=== PATIENT | female | born 1975 | race Caucasian/White ===

== ENCOUNTER 2016-11-23 06:41 | Emergency (ER) | payer SELFPAY ==
[~2016-11-23] VITALS: Ht 165.1 cm; Wt 54.6 kg
[2016-11-23 06:43] VITALS: Ht 165.1 cm; Wt 54.6 kg
--- NOTE | 2016-11-23 06:43 | NUR ---
EMS HERE. DR CALLAWAY ASSESSED PT PRIOR TO REMOVING PT FROM EMS CART. PT IS UNRESPONSIVE.
--- NOTE | 2016-11-23 06:45 | NUR ---
Shannon pinon in [facility] - 11/23/16 at [address] PER CART
--- NOTE | 2016-11-23 06:45 | NUR ---
STROKE ACTIVATION INITIATED.
--- NOTE | 2016-11-23 06:45 | NUR ---
TO CT PER EMS CART
[2016-11-23] MEDS ORDERED: NORMAL SALINE 1,000 ML IV ONE ×2 (06:46→08:30)
--- OUTSIDE RECORDS SUMMARY | 2016-11-23 06:47 | XMS REPORT ---
Author Author Gino Godfrey [facility] eClinicalWorks Address Unknown Phone Unavailable Care Team Providers Care Resolution Expert Name Role Phone Gino Godfrey CP Unavailable Allergies No Known Allergies Problems Problem Type Condition Code Onset Dates Condition Status Problem Panic attack F41.0 Active Problem Unspecified asthma, uncomplicated J45.909 Active Problem Acute cystitis without hematuria N30.00 Active Problem Chronic low back pain M54.5 Active Problem Cystitis with hematuria N30.91 Active Problem Urinary retention R33.9 Active Problem Depression, uncontrolled F32.9 Active Problem Hypothyroidism, unspecified E03.9 Active Problem 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
--- OUTSIDE RECORDS SUMMARY | 2016-11-23 06:47 | XMS REPORT ---
Author Author Gino Godfrey [facility] eClinicalWorks Address Unknown Phone Unavailable Care Team Providers Care Field Installer Name Role Phone Gino Godfrey Unavailable Allergies, Adverse Reactions, Alerts Substance Reaction Event Type Morphine Sulfate Info Not Available Drug Allergy Medrol (Edgard) Info Not Available Drug Allergy Bactrim Info Not Available Drug Allergy Aleve Info Not Available Drug Allergy Problems Problem Type Condition Code Onset Dates Condition Status Assessment Panic attack F41.0 Active Problem Unspecified asthma, uncomplicated J45.909 Active Assessment Chronic low back pain M54.5 Active Problem Chronic low back pain M54.5 Active Problem Hypothyroidism, unspecified E03.9 Active Problem Acute cystitis without hematuria N30.00 Active Problem Depression, uncontrolled F32.9 Active Problem Panic attack F41.0 Active Problem Chronic radicular lumbar pain M54.16 Active Problem Urinary retention R33.9 Active Medications Medication Code System Code Instructions Start Date End Date Status Dosage Fentanyl [facility] [place] [address]-07 100 MCG/HR Transdermal every 72 hrs December 01, 2012 1 patch to skin Levothyroxine Sodium [facility] [place] [id number] 75 TAKE ONE TABLET BY MOUTH DAILY. NEED LAB. Gabapentin [facility] [place] 29804524181 400 TAKE ONE CAPSULE BY MOUTH THREE TIMES A DAY Diazepam [facility] [place] [address]-69 10 MG Orally TID Sep 29, 2014 1 tablet as needed Dexilant [facility] [place] [address]-84 60 MG Orally Once a day November 08, 2015 1 capsule Phenergan [facility] [place] [address]-11 50 MG/ML Injection now with 50mg Demerol November 24, 2015 0.5 ml as needed Oxycodone HCl [facility] [place] [address]-33 10 MG Orally 3 times a day, with occasional 1 tablet daily, max of 4/day. 90 tabs to last 28 days December 01, 2012 1 tablet Xikogituhi-NACH-Xflvqgit [facility] [place] 39792042916 50-325-40 Orally QD, as needed 1 tablet Cymbalta [facility] [place] [address]-79 60 MG Orally Twice a day 1 capsule ProAir RespiClick [facility] [place] [address]-54 108 (90 Base) MCG/ACT Inhalation every 4 hrs December 29, 2015 1 puff as needed Procedures Procedure Coding System Code Date OFFICE VISITEST PT CPT-4 85211 Apr 08, 2016 Vital Signs Date/Time: Apr 08, 2016 Blood Pressure Systolic 135 mm Hg Height 5 ft 6 in in Weight 117.2 lbs Oximetry 99 % Cardiac Monitoring Heart Rate 118 /min Temperature 98.2 F Blood Pressure Diastolic 90 mm Hg BMI 18.91 Index Results No Known Results Summary Purpose eClinicalWorks Submission
--- OUTSIDE RECORDS SUMMARY | 2016-11-23 06:47 | XMS REPORT ---
Author Author Gino Godfrey [facility] eClinicalWorks Address Unknown Phone Unavailable Care Team Providers Care Die Mechanic Name Role Phone Gino Godfrey CP Unavailable Allergies No Known Allergies Problems Problem Type Condition Code Onset Dates Condition Status Problem Unspecified asthma, uncomplicated J45.909 Active Problem Depression, uncontrolled F32.9 Active Problem Panic attack F41.0 Active Problem Cystitis with hematuria N30.91 Active Problem Acute cystitis without hematuria N30.00 Active Problem Diverticulitis of large intestine without perforation or abscess with bleeding K57.33 Active Problem Chronic radicular lumbar pain M54.16 Active Problem Urinary retention R33.9 Active Problem Chronic low back pain M54.5 Active Problem Hypothyroidism, unspecified E03.9 Active Medications No Known Medications Results No Known Results Summary Purpose eClinicalWorks Submission
--- OUTSIDE RECORDS SUMMARY | 2016-11-23 06:47 | XMS REPORT ---
Author Author Gino Godfrey [facility] eClinicalWorks Address Unknown Phone Unavailable Care Team Providers Care Manager Property Name Role Phone Gino Godfrey CP Unavailable Allergies No Known Allergies Problems Problem Type Condition ICD-9 Code Onset Dates Condition Status Problem Depression 311 Active Problem Urinary retention 788.20 Active Problem Panic attacks 300.01 Active Problem Chronic lumbar radiculopathy 724.4 Active Problem Low back pain 724.2 Active Problem Hypothyroidism 244.9 Active Medications No Known Medications Results No Known Results Summary Purpose eClinicalWorks Submission
--- OUTSIDE RECORDS SUMMARY | 2016-11-23 06:47 | XMS REPORT ---
Author Author Gino Godfrey [facility] eClinicalWorks Address Unknown Phone Unavailable Care Team Providers Care Medical Billing And Coding Instructor Name Role Phone Gino Godfrey CP Unavailable Allergies No Known Allergies Problems Problem Type Condition Code Onset Dates Condition Status Problem Depression 311 Active Problem Urinary retention 788.20 Active Problem Panic attacks 300.01 Active Problem Chronic lumbar radiculopathy 724.4 Active Problem Low back pain 724.2 Active Problem Hypothyroidism 244.9 Active Medications No Known Medications Results No Known Results Summary Purpose eClinicalWorks Submission
--- OUTSIDE RECORDS SUMMARY | 2016-11-23 06:47 | XMS REPORT ---
Author Author Gino Sandoval [facility] eClinicalWorks Address Unknown Phone Unavailable Care Team Providers Care Steam Hand Name Role Phone Gino Sandoval Unavailable Allergies, Adverse Reactions, Alerts Substance Reaction Event Type Morphine Sulfate Info Not Available Drug Allergy Medrol (Edgard) Info Not Available Drug Allergy Bactrim Info Not Available Drug Allergy Aleve Info Not Available Drug Allergy Problems Problem Type Condition ICD-9 Code Onset Dates Condition Status Assessment Urinary retention 788.20 Active Assessment Depression 311 Active Assessment Panic attacks 300.01 Active Problem Depression 311 Active Problem Urinary retention 788.20 Active Problem Panic attacks 300.01 Active Problem Chronic lumbar radiculopathy 724.4 Active Assessment Low back pain 724.2 Active Problem Low back pain 724.2 Active Problem Hypothyroidism 244.9 Active Medications Medication Code System Code Instructions Start Date End Date Status Dosage Azommunutd-WQQS-Gqspnhwm [facility] [address]-34 50-325-40 MG Orally TID, PER DR. SANDOVAL, MAX 3/DAY Active 1 TABLET Venlafaxine HCl ER [facility] [address]-48 75 MG Orally Once a day Mar 11, 2014 Active 3 tablet with food Gabapentin [facility] [address]-53 400 MG Orally Three times a day October 19, 2012 Active 1 capsule Promethazine HCl [facility] 37547735932 25 Active TAKE ONE TABLET BY MOUTH EVERY 4 HOURS AND AT BEDTIME Oxycodone HCl [facility] [address]-52 10 MG Orally 5 times a day December 01, 2012 Active 1 tablet as needed Fioricet [facility] 62121248794 50-325-40 Orally TID Active 1 TABLET Phenergan [facility] [address]-44 25 mg Rectal 1 EVERY 6 HRS May 17, 2014 Active as directed Fentanyl [facility] [address]-57 100 MCG/HR Transdermal every 72 hrs December 01, 2012 Active 1 patch to skin Flexeril [facility] [address]-10 10 MG Orally Three times a day Active take 1 tablet Procedures Procedure Coding System Code Date OFFICE VISITEST PT CPT-4 29792 Jul 11, 2014 Vital Signs Date/Time: Jul 11, 2014 Blood Pressure Systolic 107 mm Hg Height 5 ft 6 in in Weight 131.7 lbs BMI 21.25 Index Blood Pressure Diastolic 52 mm Hg Results No Known Results Summary Purpose eClinicalWorks Submission
--- OUTSIDE RECORDS SUMMARY | 2016-11-23 06:47 | XMS REPORT ---
Author Author Gino Godfrey [facility] eClinicalWorks Address Unknown Phone Unavailable Care Team Providers Care Salesforce Trainer Name Role Phone Gino Godfrey CP Unavailable Allergies No Known Allergies Problems Problem Type Condition ICD-9 Code Onset Dates Condition Status Problem Depression 311 Active Problem Urinary retention 788.20 Active Problem Panic attacks 300.01 Active Problem Chronic lumbar radiculopathy 724.4 Active Problem Low back pain 724.2 Active Problem Hypothyroidism 244.9 Active Medications Medication Code System Code Instructions Start Date End Date Status Dosage Promethazine VC/Codeine [facility] [address]-25 6.25-5-10 MG/5ML Orally every 6 hrs Aug 19, 2014 Active 1-2 TEASPOON Acyclovir [facility] [address]-35 800 MG Orally 5 x/day Aug 25, 2014 Active 1 tablet Results No Known Results Summary Purpose eClinicalWorks Submission
--- OUTSIDE RECORDS SUMMARY | 2016-11-23 06:48 | XMS REPORT ---
Author Author Gino Godfrey [facility] eClinicalWorks Address Unknown Phone Unavailable Care Team Providers Care Car Restorer Name Role Phone Gino Godfrey Unavailable Allergies No Known Allergies Problems Problem Type Condition ICD-9 Code Onset Dates Condition Status Problem Depression 311 Active Problem Urinary retention 788.20 Active Problem Panic attacks 300.01 Active Problem Chronic lumbar radiculopathy 724.4 Active Problem Low back pain 724.2 Active Problem Hypothyroidism 244.9 Active Medications Medication Code System Code Instructions Start Date End Date Status Dosage Ztngeubkta-UJCP-Amkmedzc [facility] 60230841000 50-325-40 Orally TID, as needed, MOS OF 3 PER DAY, TRY TO TAKE LESS 1 TABLET Results No Known Results Summary Purpose eClinicalWorks Submission
--- OUTSIDE RECORDS SUMMARY | 2016-11-23 06:48 | XMS REPORT ---
Author Author Gino Godfrey [facility] eClinicalWorks Address Unknown Phone Unavailable Care Team Providers Care Notcher Name Role Phone Gino Godfrey Unavailable Allergies, Adverse Reactions, Alerts Substance Reaction Event Type Morphine Sulfate Info Not Available Drug Allergy Medrol (Edgard) Info Not Available Drug Allergy Bactrim Info Not Available Drug Allergy Aleve Info Not Available Drug Allergy Problems Problem Type Condition Code Onset Dates Condition Status Assessment Chronic low back pain M54.5 Active Problem Hypothyroidism, unspecified E03.9 Active Problem Chronic radicular lumbar pain M54.16 Active Problem Chronic low back pain M54.5 Active Problem Panic attack F41.0 Active Problem Unspecified asthma, uncomplicated J45.909 Active Problem Urinary retention R33.9 Active Problem Depression, uncontrolled F32.9 Active Medications Medication Code System Code Instructions Start Date End Date Status Dosage Gabapentin [facility] [id number] 400 TAKE ONE CAPSULE BY MOUTH THREE TIMES A DAY Promethazine HCl [facility] [address]-93 25 MG Orally q 6 hrs 1 tablet Fentanyl [facility] [address]-09 100 MCG/HR Transdermal every 72 hrs December 01, 2012 1 patch to skin Cymbalta [facility] 99265109072 60 Orally Twice a day 1 capsule Diazepam [facility] [address]-06 10 MG Orally TID Sep 29, 2014 1 tablet as needed Dstfeagbfy-IYTA-Pcfqvgoy [facility] 74479001776 50-325-40 Orally QD, as needed 1 tablet Oxycodone HCl [facility] [address]-40 10 MG Orally 3 times a day, with occasional 1 tablet daily, max of 4/day. 90 tabs to last 28 days December 01, 2012 1 tablet Procedures Procedure Coding System Code Date OFFICE VISITEST PT CPT-4 30625 Jun 01, 2015 Vital Signs Date/Time: Jun 01, 2015 Blood Pressure Systolic 128 mm Hg Height 5 ft 6 in in Weight 135.7 lbs BMI 21.90 Index Cardiac Monitoring Heart Rate 139 /min Blood Pressure Diastolic 98 mm Hg Results No Known Results Summary Purpose eClinicalWorks Submission
--- OUTSIDE RECORDS SUMMARY | 2016-11-23 06:48 | XMS REPORT ---
Author Author Gino Godfrey [facility] eClinicalWorks Address Unknown Phone Unavailable Care Team Providers Care Electric Organ Checker Name Role Phone Gnio Godfrey CP Unavailable Allergies No Known Allergies [...]
--- OUTSIDE RECORDS SUMMARY | 2016-11-23 06:48 | XMS REPORT ---
Author Author Gino Godfrey [facility] eClinicalWorks Address Unknown Phone Unavailable Care Team Providers Care Song Writer Name Role Phone Gino Godfrey CP Unavailable [...] Chronic radicular lumbar pain M54.16 Active Medications Medication Code System Code Instructions Start Date End Date Status Dosage Tywqmsgqib-MVQA-Rpoihquz [facility] 78360069027 50-325-40 Orally QD, as needed 1-2 tablet Results No Known Results Summary Purpose eClinicalWorks Submission
--- OUTSIDE RECORDS SUMMARY | 2016-11-23 06:48 | XMS REPORT ---
Author Author Gino Godfrey eClinicalWorks Address Unknown Phone Unavailable Care Team Providers Care Framing Machine Tender Name Role Phone Gino Godfrey Unavailable Allergies, Adverse Reactions, Alerts Substance Reaction Event Type Morphine Sulfate Info Not Available Drug Allergy Medrol (Edgard) Info Not Available Drug Allergy Bactrim Info Not Available Drug Allergy Aleve Info Not Available Drug Allergy Problems Problem Type Condition Code Onset Dates Condition Status Assessment Depression, uncontrolled F32.9 Active Assessment Chronic low back pain M54.5 Active Assessment Urinary retention R33.9 Active Assessment Panic attack F41.0 Active Problem Hypothyroidism, unspecified E03.9 Active Problem Chronic radicular lumbar pain M54.16 Active Problem Chronic low back pain M54.5 Active Problem Panic attack F41.0 Active Problem Unspecified asthma, uncomplicated J45.909 Active Problem Urinary retention R33.9 Active Problem Depression, uncontrolled F32.9 Active Medications Medication Code System Code Instructions Start Date End Date Status Dosage Cymbalta [facility] [address]-31 60 MG Orally Twice a day 1 capsule Zisapqywmk-CJQF-Orcrtost [facility] 25438856604 50-325-40 Orally QD, as needed [address] [facility] [address]-47 100 MCG/HR Transdermal every 72 hrs December 01, 2012 1 patch to skin Diazepam [facility] [address]-97 10 MG Orally TID Sep 29, 2014 1 tablet as needed Oxycodone HCl [facility] [address]-20 10 MG Orally 3 times a day, with occasional 1 tablet daily, max of 4/day. 90 tabs to last 28 days December 01, 2012 1 tablet Promethazine HCl [facility] 35024183714 25 TAKE ONE TABLET BY MOUTH EVERY 6 HOURS NEEDED Gabapentin [facility] 79125915099 400 TAKE ONE CAPSULE BY MOUTH THREE TIMES A DAY Procedures Procedure Coding System Code Date OFFICE VISITEST PT CPT-4 81259 Jul 27, 2015 Vital Signs Date/Time: Jul 27, 2015 Blood Pressure Systolic 115 mm Hg Height 5 ft 6 in in Weight 139.7 lbs BMI 22.55 Index Blood Pressure Diastolic 83 mm Hg Results No Known Results Summary Purpose eClinicalWorks Submission
--- OUTSIDE RECORDS SUMMARY | 2016-11-23 06:48 | XMS REPORT ---
Author Author Gino Godfrey [facility] eClinicalWorks Address Unknown Phone Unavailable Care Team Providers Care Lead Database Administrator Name Role Phone Gino Godfrey Unavailable Allergies No Known Allergies Problems Problem Type Condition ICD-9 Code Onset Dates Condition Status Problem Depression 311 Active Problem Urinary retention 788.20 Active Problem Panic attacks 300.01 Active Problem Chronic lumbar radiculopathy 724.4 Active Problem Low back pain 724.2 Active Problem Hypothyroidism 244.9 Active Medications Medication Code System Code Instructions Start Date End Date Status Dosage Umnmodwvqs-DGPB-Zuevfyvh [facility] 33507661385 50-325-40 Orally TID, try to take less 1 TABLET Promethazine HCl [facility] [address]-19 25 MG Orally every 4 hrs, and at bedtime 1 tablet as needed Results No Known Results Summary Purpose eClinicalWorks Submission
--- OUTSIDE RECORDS SUMMARY | 2016-11-23 06:48 | XMS REPORT ---
Author Author Gino Godfrey [facility] eClinicalWorks Address Unknown Phone Unavailable Care Team Providers Care Popcorn Machine Operator Name Role Phone Gino Godfrey CP Unavailable Allergies No Known Allergies Problems Problem Type Condition Code Onset Dates Condition Status Problem Hypothyroidism, unspecified E03.9 Active Problem Chronic radicular lumbar pain M54.16 Active Problem Chronic low back pain M54.5 Active Problem Panic attack F41.0 Active Problem Unspecified asthma, uncomplicated J45.909 Active Problem Urinary retention R33.9 Active Problem Depression, uncontrolled F32.9 Active Medications No Known Medications Results No Known Results Summary Purpose eClinicalWorks Submission
--- OUTSIDE RECORDS SUMMARY | 2016-11-23 06:48 | XMS REPORT ---
Author Author Gino Godfrey [facility] eClinicalWorks Address Unknown Phone Unavailable Care Team Providers Care Die Inspector Name Role Phone Gino Godfrey CP Unavailable [...] Active Problem Hypothyroidism, unspecified E03.9 Active Medications Medication Code System Code Instructions Start Date End Date Status Dosage Jtzjadfahz-PLUA-Vmcecowv [facility] 90065850110 50-325-40 Orally daily, as needed 1-2 TABLET Results No Known Results Summary Purpose eClinicalWorks Submission
--- OUTSIDE RECORDS SUMMARY | 2016-11-23 06:48 | XMS REPORT | Continuity of Care Document ---
Author Author [facility] Organization [facility] Address Unknown Phone Unavailable Allergies Active Description Code Type Severity Reaction Onset Reported/Identified Relationship to Patient Clinical Status Yes sulfamethoxazole sulfamethoxazole Drug Allergy Moderate RASH 02/05/2013 Yes trimethoprim trimethoprim Drug Allergy Moderate RASH 02/05/2013 Yes naproxen naproxen Drug Allergy Unknown THROAT SWELL 06/26/2013 Medications Problems Procedures Results Test Result Range UA MICROSCOPIC - 06/17/12 17:28 UA BACTERIA 5+ NEGATIVE UA EPITHELIAL CELLS 3+ epi/hpf 0 - 1+ UA RBC 0-3 rbc/hpf 0 - 3 UA VOLUME FOR EXAM 12.0 mL (12mL STD) UA WBC 0-1 wbc/hpf 0 - 5 URINALYSIS WITH MICROSCOPIC - 08/26/12 14:25 UA LEUKOCYTE ESTERASE DIPSTICK TRACE NEGATIVE UA NITRITE DIPSTICK NEGATIVE NEGATIVE UA PROTEIN DIPSTICK NEGATIVE NEGATIVE UA GLUCOSE DIPSTICK NEGATIVE NEGATIVE UA KETONE DIPSTICK NEGATIVE NEGATIVE UA UROBILINOGEN DIPSTICK NORMAL NORMAL UA BILIRUBIN DIPSTICK NEGATIVE NEGATIVE UA BLOOD DIPSTICK NEGATIVE NEGATIVE UA BACTERIA 2+ NEGATIVE UA EPITHELIAL CELLS 1+ epi/hpf 0 - 1+ UA MUCUS 1+ NEG TO 1+ UA RBC 0 rbc/hpf 0 - 3 UA VOLUME FOR EXAM 12.0 mL (12mL STD) UA WBC 2-5 wbc/hpf 0 - 5 UA SPECIFIC GRAVITY 1.015 1.015-1.025 UR PH 8.0 5.0-7.0 CBC W/DIFF - 01/30/13 06:03 EOSINOPHIL # 0.1 k/cumm 0.1-0.5 EOSINOPHIL % 2 % 2-4 GRANULOCYTE # 3.3 k/cumm 2.0-9.0 GRANULOCYTE % 50 % 50-75 LYMPHOCYTE # 2.6 k/cumm 1.0-4.0 LYMPHOCYTE % 40 % 20-30 MEAN CELL HGB 29.8 pg 27.0-33.0 MEAN CELL HGB CONCENTRATION 32.1 g/dL 32.0-37.0 MEAN CELL VOLUME 93.0 fl 80.0-100.0 MONOCYTE # 0.5 k/cumm 0.1-1.0 MONOCYTE % 8 % 4-6 RED BLOOD CELL 3.99 m/cumm 4.00-6.00 RED CELL DISTRIBUTION WIDTH 12.2 % 11.0- 15.6 WHITE BLOOD CELL 6.5 k/cumm 5.0-10.0 HEMOGLOBIN 11.9 gm/dL 12.0-16.0 HEMATOCRIT 37.1 % 37.0-47.0 PLATELET COUNT 150 k/cumm 150-400 UR TEST - 01/30/13 06:03 UR TEST NEGATIVE NEGATIVE URINALYSIS WITH MICROSCOPIC - 01/30/13 06:03 UA LEUKOCYTE ESTERASE DIPSTICK TRACE NEGATIVE UA NITRITE DIPSTICK POSITIVE NEGATIVE UA PROTEIN DIPSTICK TRACE NEGATIVE UA GLUCOSE DIPSTICK NEGATIVE NEGATIVE UA KETONE DIPSTICK NEGATIVE NEGATIVE UA UROBILINOGEN DIPSTICK NORMAL NORMAL UA BILIRUBIN DIPSTICK NEGATIVE NEGATIVE UA BLOOD DIPSTICK 2+ NEGATIVE UA AMORPHOUS SEDIMENT 1+ UA BACTERIA 2+ NEGATIVE UA COMMENT UA MUCUS 1+ NEG TO 1+ UA RBC PACKED FIELD rbc/hpf 0 - 3 UA VOLUME FOR EXAM 12.0 mL (12mL STD) UA WBC 2-5 wbc/hpf 0 - 5 UA SPECIFIC GRAVITY 1.010 1.015-1.025 UR PH 8.0 5.0-7.0 CHEM/HEM PROFILE-BEDSIDE - 01/30/13 06:05 POTASSIUM 3.8 mmol/L 3.5-5.3 METHOD Bedside ANION GAP 15 mmol/L 10-20 METHOD Bedside GLUCOSE 85 mg/dL 70-99 BLOOD UREA NITROGEN 16 mg/dL 7-20 CREATININE 0.8 mg/dL 0.6-1.0 HEMOGLOBIN 11.6 gm/dL 12.0-16.0 HEMATOCRIT 34.0 % 37.0-47.0 SODIUM 140 mmol/L 135-148 CHLORIDE 105 mmol/L 98-110 CARBON DIOXIDE 25 mmol/L 21-32 CALCIUM IONIZED 4.6 mg/dL 4.5-5.3 CBC - 02/01/13 23:09 MEAN CELL HGB 29.5 pg 27.0-33.0 MEAN CELL HGB CONCENTRATION 32.3 g/dl 32.0-36.0 MEAN CELL VOLUME 91.3 fl 80.0-100.0 RED BLOOD CELL 4.23 m/cumm 4.00-6.00 RED CELL DISTRIBUTION WIDTH 12.6 % 11.0- 15.6 WHITE BLOOD CELL 7.1 k/cumm 5.0-10.0 HEMOGLOBIN 12.5 gm/dL 12.0-16.0 HEMATOCRIT 38.6 % 37.0-47.0 PLATELET COUNT 175 k/cumm 150-450 METABOLIC PANEL, BASIC - 02/01/13 23:09 POTASSIUM 3.9 mmol/L 3.5-5.3 EST GFR (MDRD) > 60 mL/min > 59 ANION GAP 9 mmol/L 5-15 GLUCOSE 95 mg/dL 70-99 CALCIUM 8.8 mg/dL 8.5-10.1 BLOOD UREA NITROGEN 15 mg/dL 7-20 CREATININE 0.8 mg/dL 0.6-1.0 SODIUM 142 mmol/L 135-148 CHLORIDE 105 mmol/L 98-110 CARBON DIOXIDE 28 mmol/L 21-32 URINALYSIS WITH MICROSCOPIC - 02/02/13 01:25 UA LEUKOCYTE ESTERASE DIPSTICK 2+ NEGATIVE UA NITRITE DIPSTICK NEGATIVE NEGATIVE UA PROTEIN DIPSTICK 2+ NEGATIVE UA GLUCOSE DIPSTICK NEGATIVE NEGATIVE UA KETONE DIPSTICK NEGATIVE NEGATIVE UA UROBILINOGEN DIPSTICK NORMAL NORMAL UA BILIRUBIN DIPSTICK NEGATIVE NEGATIVE UA BLOOD DIPSTICK 4+ NEGATIVE UA BACTERIA 2+ NEGATIVE UA EPITHELIAL CELLS 2+ epi/hpf 0 - 1+ UA RBC 20-50 rbc/hpf 0 - 3 UA VOLUME FOR EXAM 12.0 mL (12mL STD) UA WBC 20-50 wbc/hpf 0 - 5 UA SPECIFIC GRAVITY 1.015 1.015-1.025 UR PH 6.5 5.0-7.0 URINE CULTURE - 02/02/13 01:25 Uncategorized CHEM/HEM PROFILE-BEDSIDE - 02/03/13 15:40 POTASSIUM 3.7 mmol/L 3.5-5.3 METHOD Bedside ANION GAP 18 mmol/L 10-20 METHOD Bedside GLUCOSE 86 mg/dL 70-99 BLOOD UREA NITROGEN 6 mg/dL 7-20 CREATININE 0.8 mg/dL 0.6-1.0 HEMOGLOBIN 11.9 gm/dL 12.0-16.0 HEMATOCRIT 35.0 % 37.0-47.0 SODIUM 141 mmol/L 135-148 CHLORIDE 103 mmol/L 98-110 CARBON DIOXIDE 25 mmol/L 21-32 CALCIUM IONIZED 4.7 mg/dL 4.5-5.3 CBC W/DIFF - 02/03/13 15:40 EOSINOPHIL # 0.2 k/cumm 0.1-0.5 EOSINOPHIL % 3 % 2-4 GRANULOCYTE # 2.8 k/cumm 2.0-9.0 GRANULOCYTE % 46 % 50-75 LYMPHOCYTE # 2.7 k/cumm 1.0-4.0 LYMPHOCYTE % 44 % 20-30 MEAN CELL HGB 30.0 pg 27.0-33.0 MEAN CELL HGB CONCENTRATION 32.0 g/dL 32.0-37.0 MEAN CELL VOLUME 93.5 fl 80.0-100.0 MONOCYTE # 0.4 k/cumm 0.1-1.0 MONOCYTE % 7 % 4-6 RED BLOOD CELL 4.14 m/cumm 4.00-6.00 RED CELL DISTRIBUTION WIDTH 12.3 % 11.0- 15.6 WHITE BLOOD CELL 6.0 k/cumm 5.0-10.0 HEMOGLOBIN 12.4 gm/dL 12.0-16.0 HEMATOCRIT 38.7 % 37.0-47.0 PLATELET COUNT 174 k/cumm 150-400 HEPATIC FUNCTION PANEL - 02/03/13 15:40 BILI UNCONJUGATED 0.1 mg/dL 0.0-0.7 AST/SGOT 47 Units/L 10-37 ALT/SGPT 59 Units/L < 66 TOTAL PROTEIN 7.0 gm/dL 6.4-8.2 ALBUMIN 3.4 gm/dL 3.4-5.0 BILI TOTAL 0.2 mg/dL 0.0-1.0 ALKALINE PHOSPHATASE TOTAL 137 Units/L 50 -136 BILI CONJUGATED 0.1 mg/dL 0.0-0.3 LIPASE - 02/03/13 15:40 LIPASE 106 Units/L 73-393 URINALYSIS WITH MICROSCOPIC - 02/05/13 14:46 UA LEUKOCYTE ESTERASE DIPSTICK TRACE NEGATIVE UA NITRITE DIPSTICK NEGATIVE NEGATIVE UA PROTEIN DIPSTICK NEGATIVE NEGATIVE UA GLUCOSE DIPSTICK NEGATIVE NEGATIVE UA KETONE DIPSTICK NEGATIVE NEGATIVE UA UROBILINOGEN DIPSTICK NORMAL NORMAL UA BILIRUBIN DIPSTICK NEGATIVE NEGATIVE UA BLOOD DIPSTICK 2+ NEGATIVE UA AMORPHOUS SEDIMENT 4+ UA EPITHELIAL CELLS 2+ epi/hpf 0 - 1+ UA RBC 50-100 rbc/hpf 0 - 3 UA VOLUME FOR EXAM 12.0 mL (12mL STD) UA WBC 2-5 wbc/hpf 0 - 5 UA SPECIFIC GRAVITY 1.015 1.015-1.025 UR PH 8.0 5.0-7.0 CBC W/DIFF - 06/26/13 19:44 EOSINOPHIL # 0.1 k/cumm 0.1-0.5 EOSINOPHIL % 1 % 2-4 GRANULOCYTE # 1.9 k/cumm 2.0-9.0 GRANULOCYTE % 32 % 50-75 LYMPHOCYTE # 3.5 k/cumm 1.0-4.0 LYMPHOCYTE % 60 % 20-30 MEAN CELL HGB 29.0 pg 27.0-33.0 MEAN CELL HGB CONCENTRATION 32.4 g/dL 32.0-37.0 MEAN CELL VOLUME 89.7 fl 80.0-100.0 MONOCYTE # 0.4 k/cumm 0.1-1.0 MONOCYTE % 7 % 4-6 RED BLOOD CELL 4.58 m/cumm 4.00-6.00 RED CELL DISTRIBUTION WIDTH 13.2 % 11.0- 15.6 WHITE BLOOD CELL 5.9 k/cumm 5.0-10.0 HEMOGLOBIN 13.3 gm/dL 12.0-16.0 HEMATOCRIT 41.1 % 37.0-47.0 PLATELET COUNT 204 k/cumm 150-400 HEPATIC FUNCTION PANEL - 06/26/13 19:44 BILI UNCONJUGATED 0.2 mg/dL 0.0-0.7 AST/SGOT 26 Units/L 10-37 ALT/SGPT 24 Units/L < 66 TOTAL PROTEIN 7.2 gm/dL 6.4-8.2 ALBUMIN 4.1 gm/dL 3.4-5.0 BILI TOTAL 0.3 mg/dL 0.0-1.0 ALKALINE PHOSPHATASE TOTAL 97 IU/L 45- 117 BILI CONJUGATED 0.1 mg/dL 0.0-0.3 LIPASE - 06/26/13 19:44 LIPASE 108 Units/L 73-393 CHEM/HEM PROFILE-BEDSIDE - 06/26/13 19:49 POTASSIUM 3.6 mmol/L 3.5-5.3 METHOD Bedside ANION GAP 15 mmol/L 10-20 METHOD Bedside GLUCOSE 86 mg/dL 70-99 BLOOD UREA NITROGEN 21 mg/dL 7-20 CREATININE 0.8 mg/dL 0.6-1.0 HEMOGLOBIN 13.3 gm/dL 12.0-16.0 HEMATOCRIT 39.0 % 37.0-47.0 SODIUM 142 mmol/L 135-148 CHLORIDE 105 mmol/L 98-110 CARBON DIOXIDE 26 mmol/L 21-32 CALCIUM IONIZED 4.7 mg/dL 4.5-5.3 UR TEST - 06/26/13 20:13 UR TEST NEGATIVE NEGATIVE URINALYSIS, ROUTINE - 06/26/13 20:13 UA LEUKOCYTE ESTERASE DIPSTICK 2+ NEGATIVE UA NITRITE DIPSTICK POSITIVE NEGATIVE UA PROTEIN DIPSTICK 3+ NEGATIVE UA GLUCOSE DIPSTICK 2+ NEGATIVE UA KETONE DIPSTICK 1+ NEGATIVE UA UROBILINOGEN DIPSTICK 4+ NORMAL UA BILIRUBIN DIPSTICK POSITIVE NEGATIVE UA BLOOD DIPSTICK 1+ NEGATIVE UA SPECIFIC GRAVITY 1.020 1.015-1.025 UR PH 5.0 5.0-7.0 UA MICROSCOPIC - 06/26/13 20:13 UA BACTERIA 1+ NEGATIVE UA MUCUS 2+ NEG TO 1+ UA VOLUME FOR EXAM 12.0 mL (12mL STD) UA WBC 10-20 wbc/hpf 0 - 5 URINE CULTURE - 06/26/13 20:13 Uncategorized CBC W/DIFF - 11/18/13 14:35 GRANULOCYTE # 5.0 k/cumm 2.0-9.0 GRANULOCYTE % 84 % 50-75 LYMPHOCYTE # 0.8 k/cumm 1.0-4.0 LYMPHOCYTE % 13 % 20-30 MEAN CELL HGB 29.5 pg 27.0-33.0 MEAN CELL HGB CONCENTRATION 33.7 g/dL 32.0-37.0 MEAN CELL VOLUME 87.4 fl 80.0-100.0 MONOCYTE # 0.2 k/cumm 0.1-1.0 MONOCYTE % 3 % 4-6 RED BLOOD CELL 4.61 m/cumm 4.00-6.00 RED CELL DISTRIBUTION WIDTH 12.8 % 11.0- 15.6 WHITE BLOOD CELL 6.0 k/cumm 5.0-10.0 HEMOGLOBIN 13.6 gm/dL 12.0-16.0 HEMATOCRIT 40.3 % 37.0-47.0 PLATELET COUNT 181 k/cumm 150-450 METABOLIC PANEL, COMPREHN - 11/18/13 14:35 POTASSIUM 3.7 mmol/L 3.5-5.3 EST GFR (MDRD) > 60 mL/min > 59 ANION GAP 9 mmol/L 5-15 GLUCOSE 107 mg/dL 70-99 CALCIUM 9.3 mg/dL 8.5-10.1 BLOOD UREA NITROGEN 18 mg/dL 7-20 CREATININE 0.8 mg/dL 0.6-1.0 SODIUM 141 mmol/L 135-148 CHLORIDE 104 mmol/L 98-110 AST/SGOT 20 Units/L 10-37 ALT/SGPT 20 Units/L < 66 CARBON DIOXIDE 28 mmol/L 21-32 TOTAL PROTEIN 8.0 gm/dL 6.4-8.2 ALBUMIN 4.3 gm/dL 3.4-5.0 BILI TOTAL 0.3 mg/dL 0.0-1.0 ALKALINE PHOSPHATASE TOTAL 98 IU/L 45- 117 URINALYSIS WITH MICROSCOPIC - 11/18/13 14:48 UA LEUKOCYTE ESTERASE DIPSTICK TRACE NEGATIVE UA NITRITE DIPSTICK NEGATIVE NEGATIVE UA PROTEIN DIPSTICK NEGATIVE NEGATIVE UA GLUCOSE DIPSTICK NEGATIVE NEGATIVE UA KETONE DIPSTICK TRACE NEGATIVE UA UROBILINOGEN DIPSTICK NORMAL NORMAL UA BILIRUBIN DIPSTICK NEGATIVE NEGATIVE UA BLOOD DIPSTICK NEGATIVE NEGATIVE UA EPITHELIAL CELLS 1+ epi/hpf 0 - 1+ UA MUCUS 3+ NEG TO 1+ UA RBC 0-3 rbc/hpf 0 - 3 UA VOLUME FOR EXAM 12.0 mL (12mL STD) UA WBC 2-5 wbc/hpf 0 - 5 UA SPECIFIC GRAVITY 1.010 1.015-1.025 UR PH 7.0 5.0-7.0 URINALYSIS, ROUTINE - 02/01/14 23:30 UA LEUKOCYTE ESTERASE DIPSTICK TRACE NEGATIVE UA NITRITE DIPSTICK NEGATIVE NEGATIVE UA PROTEIN DIPSTICK TRACE NEGATIVE UA GLUCOSE DIPSTICK NEGATIVE NEGATIVE UA KETONE DIPSTICK NEGATIVE NEGATIVE UA UROBILINOGEN DIPSTICK NORMAL NORMAL UA BILIRUBIN DIPSTICK NEGATIVE NEGATIVE UA BLOOD DIPSTICK NEGATIVE NEGATIVE UA SPECIFIC GRAVITY 1.015 1.015-1.025 UR PH 6.5 5.0-7.0 UA MICROSCOPIC - 02/01/14 23:30 UA BACTERIA 2+ NEGATIVE UA EPITHELIAL CELLS 1+ epi/hpf 0 - 1+ UA MUCUS 4+ NEG TO 1+ UA RBC 0-3 rbc/hpf 0 - 3 UA VOLUME FOR EXAM 12.0 mL (12mL STD) UA WBC 2-5 wbc/hpf 0 - 5 WET MOUNT - 02/01/14 23:59 Microbiology CBC W/DIFF - 07/09/14 19:18 GRANULOCYTE # 4.4 k/cumm 2.0-9.0 GRANULOCYTE % 67 % 50-75 LYMPHOCYTE # 1.7 k/cumm 1.0-4.0 LYMPHOCYTE % 26 % 20-30 MEAN CELL HGB 28.9 pg 27.0-33.0 MEAN CELL HGB CONCENTRATION 33.2 g/dL 32.0-37.0 MEAN CELL VOLUME 87.1 fl 80.0-100.0 MONOCYTE # 0.4 k/cumm 0.1-1.0 MONOCYTE % 6 % 4-6 RED BLOOD CELL 4.81 m/cumm 4.00-6.00 RED CELL DISTRIBUTION WIDTH 13.0 % 11.0- 15.6 WHITE BLOOD CELL 6.5 k/cumm 5.0-10.0 HEMOGLOBIN 13.9 gm/dL 12.0-16.0 HEMATOCRIT 41.9 % 37.0-47.0 PLATELET COUNT 211 k/cumm 150-450 METABOLIC PANEL, BASIC - 07/09/14 19:18 POTASSIUM 3.4 mmol/L 3.5-5.3 EST GFR (MDRD) > 60 mL/min > 59 ANION GAP 9 mmol/L 5-15 EST CrCl (CG) > 60 mL/min > 59 GLUCOSE 96 mg/dL 70-99 CALCIUM 9.1 mg/dL 8.5-10.1 BLOOD UREA NITROGEN 14 mg/dL 7-20 CREATININE 0.9 mg/dL 0.6-1.0 SODIUM 139 mmol/L 135-148 CHLORIDE 102 mmol/L 98-110 CARBON DIOXIDE 28 mmol/L 21-32 CHEM/HEM PROFILE-BEDSIDE - 09/03/15 19:02 POTASSIUM 3.5 mmol/L 3.5-5.3 METHOD Bedside ANION GAP 20 mmol/L 10-20 METHOD Bedside GLUCOSE 88 mg/dL 70-99 BLOOD UREA NITROGEN 17 mg/dL 7-20 CREATININE 0.8 mg/dL 0.6-1.0 HEMOGLOBIN 13.3 gm/dL 12.0-16.0 HEMATOCRIT 39.0 % 37.0-47.0 SODIUM 141 mmol/L 135-148 CHLORIDE 104 mmol/L 98-110 CARBON DIOXIDE 22 mmol/L 21-32 CALCIUM IONIZED 4.6 mg/dL 4.5-5.3 CBC W/DIFF - 09/03/15 19:20 EOSINOPHIL # 0.0 k/cumm 0.1-0.5 EOSINOPHIL % 1 % 2-4 GRANULOCYTE # 4.1 k/cumm 2.0-9.0 GRANULOCYTE % 65 % 50-75 LYMPHOCYTE # 1.8 k/cumm 1.0-4.0 LYMPHOCYTE % 29 % 20-30 MEAN CELL HGB 28.4 pg 27.0-33.0 MEAN CELL HGB CONCENTRATION 33.7 g/dL 32.0-37.0 MEAN CELL VOLUME 84.2 fl 80.0-100.0 MONOCYTE # 0.4 k/cumm 0.1-1.0 MONOCYTE % 6 % 4-6 RED BLOOD CELL 4.86 m/cumm 4.00-6.00 RED CELL DISTRIBUTION WIDTH 13.5 % 11.0- 15.6 WHITE BLOOD CELL 6.3 k/cumm 5.0-10.0 HEMOGLOBIN 13.8 gm/dL 12.0-16.0 HEMATOCRIT 40.9 % 37.0-47.0 PLATELET COUNT 184 k/cumm 150-400 HEPATIC FUNCTION PANEL - 09/03/15 19:20 BILI UNCONJUGATED 0.3 mg/dL 0.0-0.7 AST/SGOT 30 Units/L 10-37 ALT/SGPT 22 Units/L < 66 TOTAL PROTEIN 7.9 gm/dL 6.4-8.2 ALBUMIN 4.2 gm/dL 3.4-5.0 BILI TOTAL 0.4 mg/dL 0.0-1.0 ALKALINE PHOSPHATASE TOTAL 108 IU/L 45- 117 BILI CONJUGATED 0.1 mg/dL 0.0-0.3 LIPASE - 09/03/15 19:20 LIPASE 121 Units/L 73-393 URINALYSIS, ROUTINE - 09/03/15 20:03 UA LEUKOCYTE ESTERASE DIPSTICK NEGATIVE NEGATIVE UA NITRITE DIPSTICK NEGATIVE NEGATIVE UA PROTEIN DIPSTICK 1+ NEGATIVE UA GLUCOSE DIPSTICK NEGATIVE NEGATIVE UA KETONE DIPSTICK 3+ NEGATIVE UA UROBILINOGEN DIPSTICK NORMAL NORMAL UA BILIRUBIN DIPSTICK 1+ NEGATIVE UA BLOOD DIPSTICK NEGATIVE NEGATIVE UA SPECIFIC GRAVITY 1.025 1.015-1.025 UR PH 7.0 5.0-7.0 UA MICROSCOPIC - 09/03/15 20:03 UA AMORPHOUS SEDIMENT 2+ UA BACTERIA 2+ NEGATIVE UA EPITHELIAL CELLS 2+ epi/hpf 0 - 1+ UA MUCUS 4+ NEG TO 1+ UA RBC 0 rbc/hpf 0 - 3 UA VOLUME FOR EXAM 12.0 mL (12mL STD) UA WBC 0-1 wbc/hpf 0 - 5 LACTIC ACID - 06/21/16 14:22 LACTIC ACID 2.2 mmol/L 0.5-2.0 CBC W/DIFF - 06/21/16 14:22 GRANULOCYTE # 2.9 k/cumm 2.0-9.0 GRANULOCYTE % 63 % 50-75 LYMPHOCYTE # 1.4 k/cumm 1.0-4.0 LYMPHOCYTE % 30 % 20-30 MEAN CELL HGB 28.0 pg 27.0-33.0 MEAN CELL HGB CONCENTRATION 33.1 g/dL 32.0-37.0 MEAN CELL VOLUME 84.7 fl 80.0-100.0 MONOCYTE # 0.3 k/cumm 0.1-1.0 MONOCYTE % 6 % 4-6 RED BLOOD CELL 4.89 m/cumm 4.00-6.00 RED CELL DISTRIBUTION WIDTH 13.4 % 11.0- 15.6 WHITE BLOOD CELL 4.5 k/cumm 5.0-10.0 HEMOGLOBIN 13.7 gm/dL 12.0-16.0 HEMATOCRIT 41.4 % 37.0-47.0 PLATELET COUNT 185 k/cumm 150-400 METABOLIC PANEL, COMPREHN - 06/21/16 14:22 POTASSIUM 2.9 mmol/L 3.5-5.3 EST GFR (MDRD) > 60 mL/min > 59 ANION GAP 6 mmol/L 5-15 GLUCOSE 95 mg/dL 70-99 CALCIUM 8.7 mg/dL 8.5-10.1 BLOOD UREA NITROGEN 13 mg/dL 7-20 CREATININE 0.8 mg/dL 0.6-1.0 SODIUM 142 mmol/L 135-148 CHLORIDE 107 mmol/L 98-110 AST/SGOT 21 Units/L 10-37 ALT/SGPT 17 Units/L < 66 CARBON DIOXIDE 29 mmol/L 21-32 TOTAL PROTEIN 7.0 gm/dL 6.4-8.2 ALBUMIN 3.8 gm/dL 3.4-5.0 BILI TOTAL 0.2 mg/dL 0.0-1.0 ALKALINE PHOSPHATASE TOTAL 111 IU/L 45- 117 LIPASE - 06/21/16 14:22 LIPASE 90 Units/L 73-393 BLOOD CULTURE - 06/21/16 14:50 Microbiology BLOOD CULTURE - 06/21/16 14:58 Microbiology CBC W/DIFF - 08/30/16 12:30 EOSINOPHIL # 0.1 k/cumm 0.1-0.5 EOSINOPHIL % 1 % 2-4 GRANULOCYTE # 1.8 k/cumm 2.0-9.0 GRANULOCYTE % 39 % 50-75 LYMPHOCYTE # 2.4 k/cumm 1.0-4.0 LYMPHOCYTE % 51 % 20-30 MEAN CELL HGB 28.2 pg 27.0-33.0 MEAN CELL HGB CONCENTRATION 32.9 g/dL 32.0-37.0 MEAN CELL VOLUME 85.6 fl 80.0-100.0 MONOCYTE # 0.4 k/cumm 0.1-1.0 MONOCYTE % 8 % 4-6 RED BLOOD CELL 4.58 m/cumm 4.00-6.00 RED CELL DISTRIBUTION WIDTH 13.2 % 11.0- 15.6 WHITE BLOOD CELL 4.6 k/cumm 5.0-10.0 HEMOGLOBIN 12.9 gm/dL 12.0-16.0 HEMATOCRIT 39.2 % 37.0-47.0 PLATELET COUNT 201 k/cumm 150-400 HEPATIC FUNCTION PANEL - 08/30/16 12:30 BILI UNCONJUGATED 0.1 mg/dL 0.0-0.7 AST/SGOT 34 Units/L 10-37 ALT/SGPT 29 Units/L < 66 TOTAL PROTEIN 6.9 gm/dL 6.4-8.2 ALBUMIN 3.8 gm/dL 3.4-5.0 BILI TOTAL 0.2 mg/dL 0.0-1.0 ALKALINE PHOSPHATASE TOTAL 110 IU/L 45- 117 BILI CONJUGATED 0.1 mg/dL 0.0-0.3 LIPASE - 08/30/16 12:30 LIPASE 86 Units/L 73-393 CHEM/HEM PROFILE-BEDSIDE - 08/30/16 12:32 POTASSIUM 3.1 mmol/L 3.5-5.3 METHOD Bedside ANION GAP 20 mmol/L 10-20 METHOD Bedside GLUCOSE 85 mg/dL 70-99 BLOOD UREA NITROGEN 13 mg/dL 7-20 CREATININE 0.8 mg/dL 0.6-1.0 HEMOGLOBIN 12.9 gm/dL 12.0-16.0 HEMATOCRIT 38.0 % 37.0-47.0 SODIUM 143 mmol/L 135-148 CHLORIDE 105 mmol/L 98-110 CARBON DIOXIDE 23 mmol/L 21-32 CALCIUM IONIZED 4.6 mg/dL 4.5-5.3 Encounters ACCT No. Visit Date/Time Discharge Status Pt. Type Provider Facility Loc./Unit Complaint [id number] 08/28/2016 10:03:00 2016 00:00:00 DIS Outpatient Liang BALDERAS, [facility] W.INF [id number] 08/30/2016 11:39:00 2016 16:30:00 DIS [id number]2016 13:26:00 2015 13:26:00 CAN [id number] 09/[facility]/2015 17:44:00 2015 23:13:00 DIS [id number] 06/11/2015 13:15:00 2014 14:36:00 DIS Emergency Secriscolleen PAULINO, [facility] W.EDW [id number] 01/05/2015 07:19:00 2014 07:19:00 DIS Outpatient Bekah BALDERAS, [facility] W.BENSON [id number] 07/09/2014 18:04:00 2013 20:39:00 DIS Emergency Moody BALDERAS, [facility].EDW [id number] 02/01/2014 22:42:00 2013 02:47:00 DIS Emergency Juan BALDERAS, [facility] W.EDW [id number] 11/18/2013 13:59:00 2013 16:35:00 DIS Emergency Hitesh Cintron DO [facility].EDW [id number] 06/26/2013 17:07:00 2012 21:47:00 DIS [id number] 02/05/2013 14:07:00 2012 17:37:00 DIS Emergency [facility] [id number] 02/03/2013 14:54:00 2012 17:20:00 DIS Emergency Gema [facility]DERAS[facility] [id number] 02/01/2013 22:04:00 2012 02:25:00 DIS Emergency [id number] 01/30/2013 02:27:00 2012 09:57:00 DIS Emergency [id number] 10/15/2012 23:23:00 2012 01:40:00 DIS Emergency John BALDERAS, [facility] [id number] 10/14/2012 13:41:00 2012 14:15:00 DIS Emergency [facility] [id number] 09/04/2012 11:57:00 2012 12:59:00 DIS [facility] [id number] 08/26/2012 13:24:00 2012 15:00:00 DIS Emergency [facility]DERAS[facility] [id number] 06/22/2012 14:25:00 2011 14:47:00 DIS [id number] 06/17/2012 16:30:00 2011 17:54:00 DIS Emergency [facility] [id number] 05/19/2012 01:10:00 2011 03:40:00 DIS Emergency [facility] [id number] 04/12/2012 14:43:00 2011 15:23:00 DIS Emergency [facility] [id number] 11/14/2010 04:30:00 Inpatient
--- OUTSIDE RECORDS SUMMARY | 2016-11-23 06:48 | XMS REPORT ---
Author Author Gino Godfrey [facility] eClinicalWorks Address Unknown Phone Unavailable Care Team Providers Care Supervisor Rides Name Role Phone Gino Godfrey CP Unavailable Allergies No Known Allergies Problems Problem Type Condition Code Onset Dates Condition Status Problem Depression 311 Active Problem Urinary retention 788.20 Active Problem Panic attacks 300.01 Active Problem Chronic lumbar radiculopathy 724.4 Active Problem Low back pain 724.2 Active Problem Hypothyroidism 244.9 Active Medications Medication Code System Code Instructions Start Date End Date Status Dosage Fioricet [facility] [id number] 50-325-40 Orally TID, PRN 1 TABLET Results No Known Results Summary Purpose eClinicalWorks Submission
--- OUTSIDE RECORDS SUMMARY | 2016-11-23 06:48 | XMS REPORT ---
Author Author Gino Godfrey [facility] eClinicalWorks Address Unknown Phone Unavailable Care Team Providers Care Entry Level Financial Analyst Name Role Phone Gino Godfrey CP Unavailable [...]
--- OUTSIDE RECORDS SUMMARY | 2016-11-23 06:48 | XMS REPORT ---
Author Author Gino Godfrey [facility] eClinicalWorks Address Unknown Phone Unavailable Care Team Providers Care Insurance Professional Name Role Phone Gino Godfrey CP Unavailable Allergies No Known Allergies Problems Problem Type Condition Code Onset Dates Condition Status Problem Unspecified asthma, uncomplicated J45.909 Active Problem Depression, uncontrolled F32.9 Active Problem Panic attack F41.0 Active Assessment Acute renal failure, unspecified acute renal failure type N17.9 Active Problem Cystitis with hematuria N30.91 Active Problem Acute cystitis without hematuria N30.00 Active Problem Diverticulitis of large intestine without perforation or abscess with bleeding K57.33 Active Problem Chronic radicular lumbar pain M54.16 Active Problem Urinary retention R33.9 Active Problem Chronic low back pain M54.5 Active Problem Hypothyroidism, unspecified E03.9 Active Medications Medication Code System Code Instructions Start Date End Date Status Dosage Ddhmhsvkby-YQSP-Pefoxmlh [facility] 31409110060 50-325-40 Orally daily, as needed 1-2 TABLET Diazepam [facility] [address]-51 10 MG Orally TID Sep 29, 2014 1 tablet as needed Fentanyl [facility] [address]-45 100 MCG/HR Transdermal every 72 hrs December 01, 2012 1 patch to skin Oxycodone HCl [facility] [address]-85 10 MG Orally 3 times a day, with occasional 1 tablet daily, max of 4/day. 90 tabs to last 28 days December 01, 2012 1 tablet Results No Known Results Summary Purpose eClinicalWorks Submission
--- OUTSIDE RECORDS SUMMARY | 2016-11-23 06:48 | XMS REPORT ---
Author Author Gino Godfrey [facility] eClinicalWorks Address Unknown Phone Unavailable Care Team Providers Care Timber Surveyor Name Role Phone Gino Godfrey CP Unavailable Allergies No Known Allergies Problems Problem Type Condition Code Onset Dates Condition Status Problem Unspecified asthma, uncomplicated J45.909 Active Problem Chronic low back pain M54.5 Active Problem Hypothyroidism, unspecified E03.9 Active Problem Acute cystitis without hematuria N30.00 Active Problem Depression, uncontrolled F32.9 Active Problem Panic attack F41.0 Active Problem Chronic radicular lumbar pain M54.16 Active Problem Urinary retention R33.9 Active Medications No Known Medications Results No Known Results Summary Purpose eClinicalWorks Submission
--- OUTSIDE RECORDS SUMMARY | 2016-11-23 06:48 | XMS REPORT ---
Author Author Gino Godfrey [facility] eClinicalWorks Address Unknown Phone Unavailable Care Team Providers Care Beauty Director Name Role Phone Gino Godfrey CP Unavailable [...]
--- OUTSIDE RECORDS SUMMARY | 2016-11-23 06:48 | XMS REPORT ---
Author Author Gino Godfrey [facility] eClinicalWorks Address Unknown Phone Unavailable Care Team Providers Care Padder Cushion Name Role Phone Gino Godfrey CP Unavailable Allergies No Known Allergies Problems Problem Type Condition Code Onset Dates Condition Status Problem Depression 311 Active Problem Urinary retention 788.20 Active Problem Panic attacks 300.01 Active Problem Chronic lumbar radiculopathy 724.4 Active Problem Low back pain 724.2 Active Problem Hypothyroidism 244.9 Active Medications Medication Code System Code Instructions Start Date End Date Status Dosage Llrbrhywzk-OLFA-Wvdgtdgm [facility] [id number] 50-325-40 Orally TID, try to take less 1 TABLET Results No Known Results Summary Purpose eClinicalWorks Submission
--- OUTSIDE RECORDS SUMMARY | 2016-11-23 06:48 | XMS REPORT ---
Author Author Gino Godfrey [facility] Address [address] [place] [address] Care Team Providers Care Oracle Webcenter Consultant Name Role Phone Gino Godfrey Unavailable [phone] PROBLEMS Type Condition ICD9-CM Code [id number] Code Onset Dates Condition Status SNOMED Code Problem Panic attack F41.0 Active 857703109 Problem Urinary retention R33.9 Active 910639346 Problem Depression, uncontrolled F32.9 Active 99970241 Problem Unspecified asthma, uncomplicated J45.909 Active 61598296 Problem Diverticulitis of large intestine without perforation or abscess with bleeding K57.33 Active 6790832 Problem Cystitis with hematuria N30.91 Active 13458060 Problem Hypothyroidism, unspecified E03.9 Active 75569872 Problem Chronic radicular lumbar pain M54.16 Active 241738136 Problem Acute cystitis without hematuria N30.00 Active 93323045 Problem Chronic low back pain M54.5 Active 702548754 ALLERGIES Unknown Allergies SOCIAL HISTORY No smoking Hx information available PLAN OF CARE VITAL SIGNS MEDICATIONS Unknown Medications RESULTS No Results PROCEDURES No Known procedures IMMUNIZATIONS No Known Immunizations
--- OUTSIDE RECORDS SUMMARY | 2016-11-23 06:48 | XMS REPORT ---
Author Author Gino Godfrey [facility] eClinicalWorks Address Unknown Phone Unavailable Care Team Providers Care Owner Professional Engineer Name Role Phone Gino Godfrey CP Unavailable [...] Start Date End Date Status Dosage Promethazine HCl [facility] [address]-04 25 MG Orally every 6 hrs 1 TABLET Fentanyl [facility] [address]-29 100 MCG/HR Transdermal every 72 hrs December 01, 2012 1 patch to skin Atpahaukkt-WJVA-Dxoixsxc [facility] 64406921081 50-325-40 Orally QD, as needed 1 tablet Diazepam [facility] [address]-46 10 MG Orally TID Sep 29, 2014 1 tablet as needed Oxycodone HCl [facility] [address]-17 10 MG Orally 3 times a day, with occasional 1 tablet daily, max of 4/day. 90 tabs to last 28 days December 01, 2012 1 tablet Results No Known Results Summary Purpose eClinicalWorks Submission
--- OUTSIDE RECORDS SUMMARY | 2016-11-23 06:49 | XMS REPORT ---
Author Author Gino Godfrey [facility] eClinicalWorks Address Unknown Phone Unavailable Care Team Providers Care Packaging Line Attendant Name Role Phone Gino Godfrey Unavailable Allergies, Adverse Reactions, Alerts Substance Reaction Event Type Morphine Sulfate Info Not Available Drug Allergy Medrol (Edgard) Info Not Available Drug Allergy Bactrim Info Not Available Drug Allergy Aleve Info Not Available Drug Allergy Problems Problem Type Condition ICD-9 Code Onset Dates Condition Status Assessment Bronchitis 490 Active Assessment RAD (reactive airway disease) 493.90 Active Problem Panic attacks 300.01 Active Problem Depression 311 Active Problem RAD (reactive airway disease) 493.90 Active Problem Hypothyroidism 244.9 Active Problem Chronic lumbar radiculopathy 724.4 Active Problem Urinary retention 788.20 Active Problem Low back pain 724.2 Active Medications Medication Code System Code Instructions Start Date End Date Status Dosage Gabapentin [facility] 74466242679 400 TAKE ONE CAPSULE BY MOUTH THREE TIMES A DAY Promethazine-Codeine [facility] [address]-78 6.25-10 MG/5ML Orally every 6 hrs Apr 20, 2015 5 to 10 ml as needed Vmnhkmusbr-PLQU-Thrlbvds [facility] 10226165269 50-325-40 TAKE ONE TABLET BY MOUTH DAILY NEEDED Fentanyl [facility] [address]-78 100 MCG/HR Transdermal every 72 hrs December 01, 2012 1 patch to skin PredniSONE [facility] [address]-80 50 MG Orally Once a day Apr 20, 2015 as directed Cymbalta [facility] 07397766370 60 TAKE ONE CAPSULE BY MOUTH TWICE A DAY Diazepam [facility] [address]-02 10 MG Orally TID Sep 29, 2014 1 tablet as needed Oxycodone HCl [facility] [address]-15 10 MG Orally 3 times a day December 01, 2012 1 tablet as needed Promethazine HCl [facility] 95198020592 25 TAKE ONE TABLET BY MOUTH EVERY 4 HOURS AND AT BEDTIME Zithromax Z-Edgard [facility] [address]-46 250 MG Orally Once a day Apr 20, 2015 2 tablet on the first day, then 1 tablet daily for 4 days Procedures Procedure Coding System Code Date OFFICE VISITEST PT CPT-4 66939 Apr 20, 2015 Vital Signs Date/Time: Apr 20, 2015 Blood Pressure Systolic 106 mm Hg Height 5 ft 6 in in Weight 135 lbs BMI 21.79 Index Temperature 98.2 F Blood Pressure Diastolic 74 mm Hg Results No Known Results Summary Purpose eClinicalWorks Submission
--- OUTSIDE RECORDS SUMMARY | 2016-11-23 06:49 | XMS REPORT ---
Author Author Gino Godfrey [facility] eClinicalWorks Address Unknown Phone Unavailable Care Team Providers Care Box Builder Name Role Phone Gino Godfrey Unavailable Allergies [...] Start Date End Date Status Dosage Gabapentin [facility] [address]-38 400 MG Orally Three times a day October 19, 2012 1 capsule Diazepam [facility] [address]-08 10 MG Orally Twice a day Sep 29, 2014 1 tablet as needed Fentanyl [facility] [address]-14 100 MCG/HR Transdermal every 72 hrs December 01, 2012 1 patch to skin Oxycodone HCl [facility] [address]-93 10 MG Orally 5 times a day December 01, 2012 1 tablet as needed Results No Known Results Summary Purpose eClinicalWorks Submission
--- OUTSIDE RECORDS SUMMARY | 2016-11-23 06:49 | XMS REPORT ---
Author Author Gino Godfrey [facility] eClinicalWorks Address Unknown Phone Unavailable Care Team Providers Care Gripper Attacher Name Role Phone Gino Godfrey CP Unavailable Allergies No Known Allergies Problems Problem Type Condition Code Onset Dates Condition Status Assessment Urinary retention R33.9 Active Problem Hypothyroidism, unspecified E03.9 Active Problem Chronic radicular lumbar pain M54.16 Active Problem Chronic low back pain M54.5 Active Problem Panic attack F41.0 Active Problem Unspecified asthma, uncomplicated J45.909 Active Problem Urinary retention R33.9 Active Problem Depression, uncontrolled F32.9 Active Medications No Known Medications Procedures Procedure Coding System Code Date UA DIPMANUAL CPT-4 26994 Aug 07, 2015 URINE CULTURE CPT-4 19427 Aug 07, 2015 Results No Known Results Summary Purpose eClinicalWorks Submission
--- OUTSIDE RECORDS SUMMARY | 2016-11-23 06:49 | XMS REPORT ---
Author Author Gino Godfrey [facility] Address [address] [place] [address] Care Team Providers Care Pot Holder Binder Name Role Phone Gino Godfrey Unavailable [phone] PROBLEMS Type Condition ICD9-CM Code [id number] Code Onset Dates Condition Status SNOMED Code Problem Panic attack F41.0 Active 497987412 Problem Urinary retention R33.9 Active 537244818 Problem Depression, uncontrolled F32.9 Active 23936785 Problem Diverticulitis of large intestine without perforation or abscess with bleeding K57.33 Active 8939853 Problem Cystitis with hematuria N30.91 Active 61366028 Problem Hypothyroidism, unspecified E03.9 Active 79363487 Problem Chronic radicular lumbar pain M54.16 Active 767387324 Problem Acute cystitis without hematuria N30.00 Active 95124140 Problem Chronic low back pain M54.5 Active 709318717 Assessment Hypokalemia E87.6 Aug, Active 53005299 Assessment Acute renal failure, unspecified acute renal failure type N17.9 Aug, Active 02520049 Assessment Retention of urine, unspecified R33.9 Aug, Active 834983071 Assessment Renal insufficiency N28.9 Aug, Active 373982225 Problem Unspecified asthma, uncomplicated J45.909 Active 62775661 ALLERGIES Unknown Allergies SOCIAL HISTORY No smoking Hx information available PLAN OF CARE VITAL SIGNS MEDICATIONS Unknown Medications RESULTS No Results PROCEDURES No Known procedures IMMUNIZATIONS No Known Immunizations
--- OUTSIDE RECORDS SUMMARY | 2016-11-23 06:49 | XMS REPORT ---
Author Author Gino Godfrey [facility] eClinicalWorks Address Unknown Phone Unavailable Care Team Providers Care Prototype Machinist Name Role Phone Gino Godfrey CP Unavailable [...] Start Date End Date Status Dosage Fioricet [facility] [id number] 50-325-40 Orally TID Active 1 TABLET Results No Known Results Summary Purpose eClinicalWorks Submission
--- OUTSIDE RECORDS SUMMARY | 2016-11-23 06:49 | XMS REPORT ---
Author Author Gino Godfrey [facility] eClinicalWorks Address Unknown Phone Unavailable Care Team Providers Care Channel Supervisor Name Role Phone Gino Godfrey Unavailable Allergies, [...] M54.5 Active Problem Hypothyroidism, unspecified E03.9 Active Assessment Low back pain M54.5 Active Assessment Retention of urine, unspecified R33.9 Active Assessment Acute renal failure, unspecified acute renal failure type N17.9 Active Assessment Diverticulitis of large intestine without perforation or abscess with bleeding K57.33 Active Medications Medication Code System Code Instructions Start Date End Date Status Dosage Diazepam [facility] [address]-85 10 MG Orally TID Sep 29, 2014 1 tablet as needed Macrobid [facility] [address]-18 100 MG twice a day 1 capsule Phenergan [facility] [address]-26 50 MG/ML Injection now with 50mg Demerol November 24, 2015 0.5 ml as needed Xbykbhdhto-TLPT-Geqhedlu [facility] 11828756498 50-325-40 Orally QD, as needed 1-2 tablet Promethazine HCl [facility] 75116679223 25 Orally every 6 hrs take one tablet by mouth every 4 to 6 hours as needed nausea Dexilant [facility] [address]-70 60 MG Orally Once a day November 08, 2015 1 capsule Cymbalta [facility] [address]-77 60 MG Orally Twice a day 1 capsule Gabapentin [facility] 24944500324 400 TAKE ONE CAPSULE BY MOUTH THREE TIMES A DAY Demerol [facility] [address]-54 50 MG/ML Injection now May 03, 2016 with phenergan 25 mg Levothyroxine Sodium [facility] 87422275962 75 TAKE ONE TABLET BY MOUTH DAILY ProAir RespiClick [facility] [address]-51 108 (90 Base) MCG/ACT Inhalation every 4 hrs December 29, 2015 1 puff as needed Oxycodone HCl [facility] [address]-25 10 MG Orally 3 times a day, with occasional 1 tablet daily, max of 4/day. 90 tabs to last 28 days December 01, 2012 1 tablet Fentanyl [facility] [address]-65 100 MCG/HR Transdermal every 72 hrs December 01, 2012 1 patch to skin Procedures Procedure Coding System Code Date CREATININE; OTHER SOURCE CPT-4 07533 Jun 21, 2016 TOTAL PROTEIN URINE CPT-4 63487 Jun 21, 2016 RENAL PROFILE CPT-4 73510 Jun 21, 2016 OFFICE VISITEST PT CPT-4 43304 Jun 21, 2016 URINALYSIS CPT-4 35705 Jun 21, 2016 URINE CULTURE CPT-4 94543 Jun 21, 2016 Vital Signs Date/Time: Jun 21, 2016 Blood Pressure Systolic 117 mm Hg Height 5 ft 6 in in Weight 114.1 lbs BMI 18.41 Index Temperature 97.9 F Blood Pressure Diastolic 75 mm Hg Results Name Result Date Reference Range Unit Abnormality Flag Urine Culture #[id number] Urinalysis ---- RBC 0-1 [id number] 0-2/HPF hpf ----pH 5 27002941 5-8 ----NITRITES POS [id number] NEGATIVE ---- WBC 3-5 [id number] 0-5/HPF hpf ----GLUCOSE NORM [id number] NEG MG/DL ----SPEC GRAVITY 1.023 [id number] 1.016-1.022 ----PROTEIN NEG 90947685 NEGATIVE ----BLOOD NEG 07675518 NEGATIVE ----MUCOUS 2+ 20160621 NONE/HPF hpf ----COLOR STRAW 79386762 YELLOW-STRAW ----CRYSTALS 0 10732493 NONE/HPF hpf ----BACTERIA 3+ 65547577 NONE/HPF hpf ----LEUKOCYTES TR [id number] NEGATIVE ----SQUAMOUS EPITH OCCASIONAL 20160621 FEW/HPF hpf ----CLARITY S.CLD 20160621 CLEAR ----BILIRUBIN NEG 20160621 NEGATIVE ----OTHER CASTS 0 20160621 NONE/LPF lpf ----KETONES SM 20160621 NEGATIVE ----UROBILINOGEN 4 [id number] 0 - 1.0 MG/DL RENAL PROFILE ----PHOSPHORUS 2.4 [id number] 2.6-4.5 MG/DL L ----CALCIUM 9.7 [id number] 8.7-10.3 MG/DL ----CO2 26 20160621 23-31 MMOL/L ----CHLORIDE 101 [id number] 96-108 MMOL/L ----POTASSIUM 3.0 [id number] 3.3-5.1 MMOL/L L ----GLUCOSE 101 03505066 60-99 MG/DL H ----ALBUMIN 4.5 26947785 3.2-5.2 G/DL ----BUN 12 20160621 6-20 MG/DL ----CREATININE 0.6 [id number] 0.4-1.1 MG/DL ----SODIUM 144 [id number] 133-145 MMOL/L Protein and Creatinine Ratio, Random Urine #[id number] Summary Purpose eClinicalWorks Submission
--- OUTSIDE RECORDS SUMMARY | 2016-11-23 06:49 | XMS REPORT ---
Author Author Gino Godfrey [facility] eClinicalWorks Address Unknown Phone Unavailable Care Team Providers Care Cyber Security Architect Name Role Phone Gino Godfrey CP Unavailable [...]
--- OUTSIDE RECORDS SUMMARY | 2016-11-23 06:49 | XMS REPORT | Referral Summary ---
Author Author [facility] Organization [facility] Address Unknown Phone Unavailable Care Team Providers Care Vmware Engineer Name Role Phone Bekah, W Primary Care Physician [phone] Encounter [facility] [id number] Date(s): 10/19/15 - 10/19/15 [facility] [address] [address] [phone] Discharge Diagnosis: Abdominal pain Discharge Diagnosis: Melena Discharge Disposition: 01-Home or Self Care Attending Physician: Kalie Mann MD Admitting Physician: Kalie Mann MD Vital Signs Most recent to 1 oldest [Reference Range]: Temperature Oral 37.1 degC [35.8-37.3 degC] (10/19/15 2:56 PM) Peripheral Pulse 76 bpm Rate [60-100 bpm] (10/19/15 2:56 PM) Respiratory Rate 24 br/min [14-20 br/min] *HI* (10/19/15 2:56 PM) Blood Pressure 110/60 mmHg [90-140/60-90 mmHg] (10/19/15 2:56 PM) Problem List No data available for this section Allergies, Adverse Reactions, Alerts Substance Reaction Severity Status Aleve Active Bactrim Active predniSONE Active Medications Duragesic-100 1 patches, Topical, q72hr, 0 Refill(s) Start Date: 10/19/15 Status: Ordered Fioricet See Instructions, prn pain., 0 Refill(s) Start Date: 10/19/15 Status: Ordered gabapentin See Instructions, Not sure of the dosage.. Oral tid., 0 Refill(s) Start Date: 10/19/15 Status: Ordered levothyroxine 75 mcg, Daily, 0 Refill(s) Start Date: 10/19/15 Status: Ordered Percocet 10/325 oral tablet 1 tabs, Oral, q6hr, as needed for pain, # 10 tabs, 0 Refill(s) Start Date: 10/19/15 Status: Ordered Phenergan See Instructions, 25mg. po every 4 hours., 0 Refill(s) Start Date: 10/19/15 Status: Ordered Valium 10 mg oral tablet 10 mg 1 tabs, Oral, TID, as needed for anxiety, 0 Refill(s) Start Date: 10/19/15 Status: Ordered Results No data available for this section Immunizations No data available for this section Procedures Procedure Date Related Diagnosis Body Site Cholecystectomy;2011 Coccyx2011 Hysterectomy 1999 Bladder3 Thyroidectomy 1Laproscopic with biopsies taken. 2Surgery on coccyx. 3Pt. states her bladder does not not work right. She straight catheterizes. Social History Social History Type Response Smoking Status Former smoker Assessment and Plan No data available for this section
--- OUTSIDE RECORDS SUMMARY | 2016-11-23 06:49 | XMS REPORT | Referral Summary ---
Author Author [facility] Organization [facility] Address Unknown Phone Unavailable Care Team Providers Care Dehydrator Tender Name Role Phone Bekah, Phyllis Primary Care Physician [phone] Encounter [facility] Date(s): 09/23/16 - 09/23/16 [facility] [address] [place] [address] Discharge Disposition: 01-Home or Self Care Attending Physician: Susanne Tavera MD Vital Signs No data available for this section Problem List Condition Effective Dates Status Health Status Informant Acute Active pain(Confirmed) At risk of pressure Active sore(Confirmed) Fluid Active imbalance(Confirmed) 1 H/O: HTN Active patient (hypertension)(Confi rmed) History of Active patient neurogenic bladder(Confirmed) Urinary Active retention(Confirmed) 2 1Problem added automatically by system based on initiation of Fluid Volume Imbalance Plan of Care 2Problem added automatically by system based on initiation of Urinary Retention Plan of Care Allergies, Adverse Reactions, Alerts Substance Reaction Severity Status Aleve Active Bactrim Active Levaquin Active predniSONE Active Medications acetaminophen 1,000 mg, Oral, q6hr, as needed for pain, 0 Refill(s) Start Date: 11/24/15 Status: Ordered Duragesic-100 1 patches, Topical, q72hr, 0 Refill(s) Start Date: 10/19/15 Status: Ordered Fioricet 1 tabs, Oral, Daily, 0 Refill(s) Start Date: 10/19/15 Status: Ordered gabapentin 400 mg, Oral, TID, 0 Refill(s) Start Date: 10/19/15 Status: Ordered levothyroxine 75 mcg, Daily, 0 Refill(s) Start Date: 10/19/15 Status: Ordered omeprazole 40 mg oral delayed release capsule 40 mg 1 caps, Oral, Daily, # 90 caps, 1 Refill(s), Pharmacy: [facility] # [id number], 1 caps Oral Daily Start Date: 11/07/15 Status: Ordered oxyCODONE 10 mg, Oral, q6hr, as needed for pain, up to 4 times a day, 0 Refill(s) Start Date: 11/24/15 Status: Ordered Phenergan 25 mg, Oral, q4hr, as needed for nausea/vomiting, 0 Refill(s) Start Date: 10/19/15 Status: Ordered ProAir HFA 90 mcg/inh inhalation aerosol 2 puffs, Inhalation, Daily, as needed for wheezing, 0 Refill(s) Start Date: 11/24/15 Status: Ordered Valium 10 mg oral tablet 10 mg 1 tabs, Oral, TID, as needed for anxiety, 0 Refill(s) Start Date: 10/19/15 Status: Ordered Results No data available for this section Immunizations No data available for this section Procedures Procedure Date Related Diagnosis Body Site Insertion of peripherally inserted central 09/23/16 venous catheter (PICC), without subcutaneous port or pump; age 5 years or older.. Colonoscopy1 11/07/15 Esophagogastroduodenoscopy - SN2 11/07/15 Procedure with Anesthesia3 11/07/15 Cholecystectomy;4 2011 Coccyx2011 Hysterectomy 2000 Bladder6 Thyroidectomy 1auto-populated from documented surgical case 2auto-populated from documented surgical case 3auto-populated from documented surgical case 4Laproscopic with biopsies taken. 5Surgery on coccyx. 6Pt. states her bladder does not not work right. She straight catheterizes. Social History Social History Type Response Smoking Status Former smoker Assessment and Plan No data available for this section
--- OUTSIDE RECORDS SUMMARY | 2016-11-23 06:49 | XMS REPORT ---
Author Author Gino Godfrey [facility] eClinicalWorks Address Unknown Phone Unavailable Care Team Providers Care Lead Pony Rider Name Role Phone Gino Godfrey CP Unavailable [...] Start Date End Date Status Dosage Cymbalta [facility] [address]-46 60 MG Orally Twice a day 1 capsule Results No Known Results Summary Purpose eClinicalWorks Submission
--- OUTSIDE RECORDS SUMMARY | 2016-11-23 06:49 | XMS REPORT ---
Author Author Gino Godfrey [facility] eClinicalWorks Address Unknown Phone Unavailable Care Team Providers Care Poultry Cutter Name Role Phone Gino Godfrey CP Unavailable [...] Start Date End Date Status Dosage Fioricet [facility] 75591048775 50-325-40 Orally TID Active 1 TABLET Results No Known Results Summary Purpose eClinicalWorks Submission
--- OUTSIDE RECORDS SUMMARY | 2016-11-23 06:49 | XMS REPORT ---
Author Author Gino Godfrey Organization eClinicalWorks Address Unknown Phone Unavailable Care Team Providers Care Retail Pharmacist Name Role Phone Gino Godfrey CP Unavailable Allergies No Known Allergies Problems Problem Type Condition ICD-9 Code Onset Dates Condition Status Problem Panic attacks 300.01 Active Problem Depression 311 Active Problem RAD (reactive airway disease) 493.90 Active Problem Hypothyroidism 244.9 Active Problem Chronic lumbar radiculopathy 724.4 Active Problem Urinary retention 788.20 Active Problem Low back pain 724.2 Active Medications Medication Code System Code Instructions Start Date End Date Status Dosage Cymbalta [facility] 43469669287 60 Orally Twice a day 1 capsule Results No Known Results Summary Purpose eClinicalWorks Submission
--- OUTSIDE RECORDS SUMMARY | 2016-11-23 06:49 | XMS REPORT ---
Author Author Gino Godfrey [facility] Address [address] [place] [address] Care Team Providers Care Dental Laboratory Technician Apprentice Name Role Phone Gino Godfrey Unavailable [phone] PROBLEMS Type Condition ICD9-CM Code CGC73-BB Code Onset Dates Condition Status SNOMED Code Problem Panic attack F41.0 Active 262738674 Problem Urinary retention R33.9 Active 630797384 Problem Depression, uncontrolled F32.9 Active 84248058 Problem Unspecified asthma, uncomplicated J45.909 Active 35433520 Problem Diverticulitis of large intestine without perforation or abscess with bleeding K57.33 Active 8050514 Problem Cystitis with hematuria N30.91 Active 85337005 Problem Hypothyroidism, unspecified E03.9 Active 90878178 Problem Chronic radicular lumbar pain M54.16 Active 220837895 Problem Acute cystitis without hematuria N30.00 Active 98914355 Problem Chronic low back pain M54.5 Active 499617462 ALLERGIES Unknown Allergies SOCIAL HISTORY No smoking Hx information available PLAN OF CARE VITAL SIGNS MEDICATIONS Unknown Medications RESULTS No Results PROCEDURES No Known procedures IMMUNIZATIONS No Known Immunizations
--- OUTSIDE RECORDS SUMMARY | 2016-11-23 06:49 | XMS REPORT ---
Author Author Gino Godfrey [facility] eClinicalWorks Address Unknown Phone Unavailable Care Team Providers Care Flooring Machine Operator Name Role Phone Gino Godfrey [...]
--- OUTSIDE RECORDS SUMMARY | 2016-11-23 06:49 | XMS REPORT ---
Author Author Gino Godfrey [facility] eClinicalWorks Address Unknown Phone Unavailable Care Team Providers Care Coat Tailor Name Role Phone Gino Godfrey CP Unavailable [...]
--- OUTSIDE RECORDS SUMMARY | 2016-11-23 06:49 | XMS REPORT ---
Author Author Gino Godfrey [facility] eClinicalWorks Address Unknown Phone Unavailable Care Team Providers Care Cost Recovery Technician Name Role Phone Gino Godfrey CP Unavailable [...]
--- OUTSIDE RECORDS SUMMARY | 2016-11-23 06:49 | XMS REPORT ---
Author Author Gino Godfrey [facility] eClinicalWorks Address Unknown Phone Unavailable Care Team Providers Care Structural Steel Painter Name Role Phone Gino Godfrey CP Unavailable [...] Start Date End Date Status Dosage Fioricet [facility] [id number] 50-325-40 Orally TID Active 1 TABLET Results No Known Results Summary Purpose eClinicalWorks Submission
--- OUTSIDE RECORDS SUMMARY | 2016-11-23 06:49 | XMS REPORT ---
Author Author Gino Godfrey [facility] eClinicalWorks Address Unknown Phone Unavailable Care Team Providers Care Psychologist Experimental Name Role Phone Gino Godfrey CP Unavailable [...]
--- OUTSIDE RECORDS SUMMARY | 2016-11-23 06:49 | XMS REPORT ---
Author Author Gino Godfrey [facility] eClinicalWorks Address Unknown Phone Unavailable Care Team Providers Care Doll Wig Maker Rooted Hair Name Role Phone Gino Godfrey CP Unavailable [...]
--- OUTSIDE RECORDS SUMMARY | 2016-11-23 06:49 | XMS REPORT ---
Author Author Gino Godfrey [facility] eClinicalWorks Address Unknown Phone Unavailable Care Team Providers Care Diesel Powerplant Supervisor Name Role Phone Gino Godfrey Unavailable Allergies, Adverse Reactions, Alerts Substance Reaction Event Type Morphine Sulfate Info Not Available Drug Allergy Medrol (Edgard) Info Not Available Drug Allergy Bactrim Info Not Available Drug Allergy Aleve Info Not Available Drug Allergy Problems Problem Type Condition Code Onset Dates Condition Status Assessment Abdominal pain R10.9 Active Problem Unspecified asthma, uncomplicated J45.909 Active Assessment Azotemia R79.89 Active Assessment UTI (urinary tract infection) N39.0 Active Assessment Chronic nausea R11.0 Active Problem Chronic low back pain M54.5 Active Problem Hypothyroidism, unspecified E03.9 Active Problem Acute cystitis without hematuria N30.00 Active Problem Depression, uncontrolled F32.9 Active Problem Panic attack F41.0 Active Problem Chronic radicular lumbar pain M54.16 Active Problem Urinary retention R33.9 Active Medications Medication Code System Code Instructions Start Date End Date Status Dosage Gabapentin [facility] 83218582355 400 TAKE ONE CAPSULE BY MOUTH THREE TIMES A DAY Fentanyl [facility] [address]-26 100 MCG/HR Transdermal every 72 hrs December 01, 2012 1 patch to skin Cymbalta [facility] [address]-35 60 MG Orally Twice a day 1 capsule Dexilant [facility] [address]-45 60 MG Orally Once a day November 08, 2015 1 capsule Levothyroxine Sodium [facility] 29848095052 75 TAKE ONE TABLET BY MOUTH DAILY Bcxzgpqpmu-YVWO-Tmdxftdo [facility] 58386054971 50-325-40 Orally QD, as needed 1 tablet Oxycodone HCl [facility] [address]-05 10 MG Orally 3 times a day, with occasional 1 tablet daily, max of 4/day. 90 tabs to last 28 days December 01, 2012 1 tablet Omeprazole [facility] [address]-98 40 mg as directed Cefdinir [facility] [address]-11 300 MG Orally every 12 hrs December 01, 2015 1 capsule Phenergan [facility] [address]-99 50 MG/ML Injection now with 50mg Demerol November 24, 2015 0.5 ml as needed Diazepam [facility] [address]-35 10 MG Orally TID Sep 29, 2014 1 tablet as needed Demerol [facility] [address]-57 50 MG IM NOW with 50mg Phenergan November 24, 2015 50 mg/ml Potassium Chloride [facility] [address]-92 10 MEQ Orally bid December 01, 2015 as directed Procedures Procedure Coding System Code Date OFFICE VISITEST PT CPT-4 09871 December 01, 2015 RENAL PROFILE CPT-4 43810 December 01, 2015 Vital Signs Date/Time: December 01, 2015 Blood Pressure Systolic 111 mm Hg Height 5 ft 6 in in Weight 133 lbs BMI 21.46 Index Blood Pressure Diastolic 80 mm Hg Results No Known Results Summary Purpose eClinicalWorks Submission
--- OUTSIDE RECORDS SUMMARY | 2016-11-23 06:49 | XMS REPORT ---
Author Author Gino Godfrey [facility] eClinicalWorks Address Unknown Phone Unavailable Care Team Providers Care Jigman Name Role Phone Gino Godfrey Unavailable Allergies No Known Allergies Problems Problem Type Condition ICD-9 Code Onset Dates Condition Status Problem Depression 311 Active Problem Urinary retention 788.20 Active Problem Panic attacks 300.01 Active Problem Chronic lumbar radiculopathy 724.4 Active Problem Low back pain 724.2 Active Problem Hypothyroidism 244.9 Active Medications Medication Code System Code Instructions Start Date End Date Status Dosage Fioricet [facility] 94735384294 50-325-40 Orally TID Active 1 TABLET Promethazine HCl [facility] [address]-95 25 MG Orally EVERY 4 HRS and at h.s. Active 1 TABLET Results No Known Results Summary Purpose eClinicalWorks Submission
--- OUTSIDE RECORDS SUMMARY | 2016-11-23 06:49 | XMS REPORT ---
Author Author Gino Godfrey [facility] eClinicalWorks Address Unknown Phone Unavailable Care Team Providers Care Application Security Consultant Name Role Phone Gino Godfrey CP Unavailable [...]
--- OUTSIDE RECORDS SUMMARY | 2016-11-23 06:49 | XMS REPORT ---
Author Author Gino Godfrey [facility] eClinicalWorks Address Unknown Phone Unavailable Care Team Providers Care Nuclear Design Engineer Name Role Phone Gino Godfrey CP [...]
--- OUTSIDE RECORDS SUMMARY | 2016-11-23 06:49 | XMS REPORT ---
Author Author Gino Godfrey [facility] eClinicalWorks Address Unknown Phone Unavailable Care Team Providers Care Web Operations Manager Name Role Phone Gino Godfrey CP Unavailable [...] Start Date End Date Status Dosage Fioricet [facility] [id number] 50-325-40 Orally TID Active 1 TABLET Results No Known Results Summary Purpose eClinicalWorks Submission
--- OUTSIDE RECORDS SUMMARY | 2016-11-23 06:49 | XMS REPORT ---
Author Author Gino Godfrey [facility] eClinicalWorks Address Unknown Phone Unavailable Care Team Providers Care Mercury Cracking Tester Name Role Phone Gino Godfrey CP Unavailable Allergies No Known Allergies Problems Problem Type Condition ICD-9 Code Onset Dates Condition Status Problem Panic attacks 300.01 Active Problem Depression 311 Active Problem RAD (reactive airway disease) 493.90 Active Problem Hypothyroidism 244.9 Active Problem Chronic lumbar radiculopathy 724.4 Active Problem Urinary retention 788.20 Active Problem Low back pain 724.2 Active Medications No Known Medications Results No Known Results Summary Purpose eClinicalWorks Submission
--- OUTSIDE RECORDS SUMMARY | 2016-11-23 06:49 | XMS REPORT ---
Author Author Gino Godfrey [facility] eClinicalWorks Address Unknown Phone Unavailable Care Team Providers Care Forest Supervisor Name Role Phone Gino Godfrey Unavailable Allergies, Adverse Reactions, Alerts Substance Reaction Event Type Morphine Sulfate Info Not Available Drug Allergy Medrol (Edgard) Info Not Available Drug Allergy Bactrim Info Not Available Drug Allergy Aleve Info Not Available Drug Allergy Problems Problem Type Condition Code Onset Dates Condition Status Assessment Chronic lumbar radiculopathy 724.4 Active Assessment Depression 311 Active Problem Depression 311 Active Problem Urinary retention 788.20 Active Problem Panic attacks 300.01 Active Problem Chronic lumbar radiculopathy 724.4 Active Assessment Low back pain 724.2 Active Problem Low back pain 724.2 Active Problem Hypothyroidism 244.9 Active Medications Medication Code System Code Instructions Start Date End Date Status Dosage Qyfkjavoqa-WNLI-Wllwapoj [facility] 16268781198 50-325-40 Orally TID, try to take less 1 TABLET Diazepam [facility] [address]-53 10 MG Orally Twice a day Sep 29, 2014 1 tablet as needed Fentanyl [facility] [address]-02 100 MCG/HR Transdermal every 72 hrs December 01, 2012 1 patch to skin Oxycodone HCl [facility] [address]-22 10 MG Orally 3 times a day December 01, 2012 1 tablet as needed Promethazine HCl [facility] 85819594146 25 TAKE ONE TABLET BY MOUTH EVERY 4 HOURS NEEDED AND AT BEDTIME Gabapentin [facility] [address]-76 400 MG Orally Three times a day October 19, 2012 1 capsule Cymbalta [facility] [address]-43 30 MG Orally Twice a day December 21, 2014 1 capsule Procedures Procedure Coding System Code Date OFFICE VISITEST PT CPT-4 45715 December 21, 2014 Vital Signs Date/Time: December 21, 2014 Blood Pressure Systolic 130 mm Hg Height 5 ft 6 in in Weight 124.7 lbs Oximetry 99 % Cardiac Monitoring Heart Rate 101 /min Temperature 98.3 F Blood Pressure Diastolic 90 mm Hg BMI 20.12 Index Results No Known Results Summary Purpose eClinicalWorks Submission
--- OUTSIDE RECORDS SUMMARY | 2016-11-23 06:49 | XMS REPORT ---
Author Author Gino Godfrey [facility] eClinicalWorks Address Unknown Phone Unavailable Care Team Providers Care Plant Assigner Name Role Phone Gino Godfrey CP Unavailable Allergies No Known Allergies Problems Problem Type Condition Code Onset Dates Condition Status Problem Unspecified asthma, uncomplicated J45.909 Active Problem Depression, uncontrolled F32.9 Active Problem Panic attack F41.0 Active Assessment Hypokalemia E87.6 Active Problem Cystitis with hematuria N30.91 Active [...]
--- OUTSIDE RECORDS SUMMARY | 2016-11-23 06:49 | XMS REPORT ---
Author Author Gino Godfrey [facility] eClinicalWorks Address Unknown Phone Unavailable Care Team Providers Care Export Documents Clerk Name Role Phone Gino Godfrey CP Unavailable Allergies No Known Allergies Problems Problem Type Condition Code Onset Dates Condition Status Assessment Retention of urine, unspecified R33.9 Active Problem Panic attack F41.0 Active Problem [...] Instructions Start Date End Date Status Dosage Rzrehemsxf-RRRD-Xzsgkkwt [facility] 46299092859 50-325-40 Orally QD, as needed 1-2 tablet Results No Known Results Summary Purpose [facility] Submission
--- OUTSIDE RECORDS SUMMARY | 2016-11-23 06:50 | XMS REPORT ---
Author Author Gino Godfrey [facility] eClinicalWorks Address Unknown Phone Unavailable Care Team Providers Care Senior Geotechnical Engineer Name Role Phone Gino Godfrey CP [...]
--- OUTSIDE RECORDS SUMMARY | 2016-11-23 06:50 | XMS REPORT ---
Author Author Gino Godfrey [facility] eClinicalWorks Address Unknown Phone Unavailable Care Team Providers Care Oracle Ebs Architect Name Role Phone Gino Godfrey Unavailable Allergies [...] Start Date End Date Status Dosage Fentanyl [facility] [address]-22 100 MCG/HR Transdermal every 72 hrs December 01, 2012 1 patch to skin Oxycodone HCl [facility] [address]-93 10 MG Orally 3 times a day December 01, 2012 1 tablet as needed Diazepam [facility] [address]-42 10 MG Orally TID Sep 29, 2014 1 tablet as needed Results No Known Results Summary Purpose eClinicalWorks Submission
--- OUTSIDE RECORDS SUMMARY | 2016-11-23 06:50 | XMS REPORT ---
Author Author Gino Godfrey [facility] eClinicalWorks Address Unknown Phone Unavailable Care Team Providers Care Brake Drum Molder Name Role Phone Gino Godfrey CP Unavailable [...]
--- OUTSIDE RECORDS SUMMARY | 2016-11-23 06:50 | XMS REPORT | Referral Summary ---
Author Author [facility] Organization [facility] Address Unknown Phone Unavailable Care Team Providers Care Engineering Supervisor Name Role Phone Phyllis Godfrey Primary Care Physician [phone] Encounter [facility] [id number] Date(s): 11/24/15 - 11/30/15 [facility] [address] [place] [address] [phone] Discharge Diagnosis: Atonic bladder Discharge Diagnosis: Chronic pain syndrome Discharge Diagnosis: Acute lower UTI Discharge Diagnosis: RIVER (acute kidney injury) Discharge Diagnosis: Chronic constipation Discharge Disposition: 01-Home or Self Care Attending Physician: Silvina Arreola MD Admitting Physician: Silvina Arreola MD Vital Signs Most recent to 1 oldest [Reference Range]: Temperature Oral 36.4 degC [35.8-37.3 degC] (11/30/15 11:37 AM) Peripheral Pulse 90 bpm Rate [60-100 bpm] (11/30/15 11:37 AM) Respiratory Rate 18 br/min [14-20 br/min] (11/30/15 11:37 AM) Blood Pressure 135/98 mmHg [90-140/60-90 mmHg] (11/30/15 11:37 AM) SpO2 92 % (11/30/15 11:37 AM) Problem List Condition Effective Dates Status Health Status Informant Acute Active pain(Confirmed) At risk of pressure Active sore(Confirmed) Fluid Active imbalance(Confirmed) 1 H/O: HTN Active patient (hypertension)(Confi rmed) History of Active patient neurogenic bladder(Confirmed) 1Problem added automatically by system based on initiation of Fluid Volume Imbalance Plan of Care Allergies, Adverse Reactions, Alerts Substance Reaction Severity Status Aleve Active Bactrim Active predniSONE Active Medications acetaminophen 1,000 mg, Oral, q6hr, as needed for pain, 0 Refill(s) Start Date: 11/24/15 Status: Ordered cefdinir 300 mg oral capsule 300 mg 1 caps, Oral, q12hr, X 2 days, # 4 caps, 0 Refill(s) Start Date: 11/30/15 Stop Date: 12/02/15 Status: Ordered Duragesic-100 1 patches, Topical, q72hr, 0 Refill(s) Start Date: 10/19/15 Status: Ordered Fioricet 1 tabs, Oral, Daily, 0 Refill(s) Start Date: 10/19/15 Status: Ordered gabapentin 400 mg, Oral, TID, 0 Refill(s) Start Date: 10/19/15 Status: Ordered levothyroxine 75 mcg, Daily, 0 Refill(s) Start Date: 10/19/15 Status: Ordered MiraLax 17 g 1 packets, Oral, BID, 0 Refill(s) Start Date: 11/30/15 Status: Ordered omeprazole 40 mg oral delayed release capsule 40 mg 1 caps, Oral, Daily, # 90 caps, 1 Refill(s), Pharmacy: [facility] # [id number], 1 caps Oral Daily Start Date: 11/07/15 Status: Ordered oxyCODONE 10 mg, Oral, q6hr, as needed for pain, up to 4 times a day, 0 Refill(s) Start Date: 11/24/15 Status: Ordered Phenergan 25 mg, Oral, q4hr, as needed for nausea/vomiting, 0 Refill(s) Start Date: 10/19/15 Status: Ordered potassium chloride 20 mEq oral tablet, extended release 40 mEq 2 tabs, Oral, TIDWM, # 30 tabs, 0 Refill(s) Start Date: 11/30/15 Stop Date: 12/05/15 Status: Ordered ProAir HFA 90 mcg/inh inhalation aerosol 2 puffs, Inhalation, Daily, as needed for wheezing, 0 Refill(s) Start Date: 11/24/15 Status: Ordered scopolamine 1.5 mg transdermal film, extended release 1.5 mg 1 patches, Topical, q3day, X 30 days, # 10 patches, 0 Refill(s) Start Date: 11/30/15 Stop Date: 12/30/15 Status: Ordered uracalm uracalm, See Instructions, 1 tabs oral daily, 0 Refill(s) Start Date: 11/24/15 Status: Ordered Valium 10 mg oral tablet 10 mg 1 tabs, Oral, TID, as needed for anxiety, 0 Refill(s) Start Date: 10/19/15 Status: Ordered Results Hematology Most recent to 1 oldest [Reference Range]: WBC [4.8-10.8 6.7 10*3/uL 10*3/uL] (11/28/15 5:15 AM) RBC [4.00-5.20] 3.43 *LOW* (11/28/15 5:15 AM) Hgb [12.0-16.0 9.5 gm/dL gm/dL] *LOW* (11/28/15 5:15 AM) Hct [37.0-47.0 %] 29.6 % *LOW* (11/28/15 5:15 AM) MCV [82.0-99.0 fL] 86.3 fL (11/28/15 5:15 AM) MCH [27.0-32.0 pg] 27.7 pg (11/28/15 5:15 AM) MCHC [32.0-36.0 32.1 gm/dL gm/dL] (11/28/15 5:15 AM) RDW [11.5-14.5 %] 13.2 % (11/28/15 5:15 AM) Platelet [150-400 135 10*3/uL 10*3/uL] *LOW* (11/28/15 5:15 AM) MPV [9.4-12.4 fL] 11.0 fL (11/28/15 5:15 AM) Chemistry Most recent to 1 oldest [Reference Range]: Sodium Lvl [136-144 142 mEq/L mEq/L] (11/30/15 4:44 AM) Potassium Lvl 2.9 mEq/L [3.6-5.1 mEq/L] *LOW* (11/30/15 4:44 AM) Chloride [99-109 101 mEq/L mEq/L] (11/30/15 4:44 AM) CO2 [22-32 mEq/L] 34 mEq/L *HI* (11/30/15 4:44 AM) AGAP [3-20] 7 (11/30/15 4:44 AM) BUN [4-20 mg/dL] 4 mg/dL (11/30/15 4:44 AM) Glucose Lvl [70-100 86 mg/dL mg/dL] (11/30/15 4:44 AM) Creatinine Lvl 1.29 mg/dL [0.44-1.03 mg/dL] *HI* (11/30/15 4:44 AM) eGFR [>60] 46 1 *ABN* (11/30/15 4:44 AM) Calcium Lvl 6.9 mg/dL [8.6-10.0 mg/dL] *LOW* (11/30/15 4:44 AM) Albumin Lvl [3.5-4.8 3.1 gm/dL gm/dL] *LOW* (11/28/15 5:15 AM) Total Protein 5.8 gm/dL [6.1-7.9 gm/dL] *LOW* (11/28/15 5:15 AM) Globulin [1.9-4.3 2.7 gm/dL gm/dL] (11/28/15 5:15 AM) ALT [14-54 U/L] 10 U/L *LOW* (11/28/15 5:15 AM) AST [15-41 U/L] 18 U/L (11/28/15 5:15 AM) Alk Phos [26-104 61 U/L U/L] (11/28/15 5:15 AM) Bili Total [0.2-1.2 0.6 mg/dL 2 mg/dL] (11/28/15 5:15 AM) Troponin [<0.06 <0.05 ng/mL ng/mL] (11/26/15 6:41 AM) Lactic Acid Lvl 0.7 mEq/L [0.5-2.2 mEq/L] (11/28/15 5:15 AM) 1Result Comment: Multiply eGFR results by 1.21 for race. 2Result Comment: Naproxen, specifically the metabolite O-desmethylnaproxen, may cause spurious elevation in Total Bilirubin levels. Urinalysis Most recent to 1 oldest [Reference Range]: UA Color Yellow (11/26/15 11:46 AM) UA Appear Clear (11/26/15 11:46 AM) UA pH [5.0-8.0] 5.0 (11/26/15 11:46 AM) UA Leuk Est Pos 1+ [Negative] *ABN* (11/26/15 11:46 AM) UA Nitrite Negative [Negative] (11/26/15 11:46 AM) UA Protein Negative [Negative] (11/26/15 11:46 AM) UA Glucose Negative [Negative] (11/26/15 11:46 AM) UA Ketones Negative [Negative] (11/26/15 11:46 AM) UA Urobilinogen Negative [<1.0] (11/26/15 11:46 AM) UA Bili [Negative] Negative (11/26/15 11:46 AM) UA Blood [Negative] Pos 1+ *ABN* (11/26/15 11:46 AM) UA Spec Grav 1.005 [1.003-1.030] (11/26/15 11:46 AM) Type Catheter (11/26/15 11:46 AM) UA WBC [0-4] 5-10 *ABN* (11/26/15 11:46 AM) UA RBC [0-2] 2-5 (11/26/15 11:46 AM) Epithelial Cells None Seen (11/26/15 11:46 AM) UA Bacteria Rare (11/26/15 11:46 AM) UA Mucous Present (11/26/15 11:46 AM) Immunizations No data available for this section Procedures Procedure Date Related Diagnosis Body Site Colonoscopy1 11/07/15 Esophagogastroduodenoscopy - SN2 11/07/15 Procedure with Anesthesia3 11/07/15 Cholecystectomy;4 2011 Coccyx5 2011 Hysterectomy 2000 Bladder6 Thyroidectomy 1auto-populated from documented [...]
--- OUTSIDE RECORDS SUMMARY | 2016-11-23 06:50 | XMS REPORT ---
Author Author Angel Yusuf Organization eClinicalWorks Address Unknown Phone Unavailable Care Team Providers Care Toaster Element Repairer Name Role Phone Angel Yusuf CP Unavailable Allergies No Known Allergies Problems [...] Instructions Start Date End Date Status Dosage Uxjohzystz-ZFDZ-Qrrgphid [facility] [id number] 50-325-40 Orally QD, as needed 1 tablet Results No Known Results Summary Purpose eClinicalWorks Submission
--- OUTSIDE RECORDS SUMMARY | 2016-11-23 06:50 | XMS REPORT ---
Author Author Gino Godfrey [facility] eClinicalWorks Address Unknown Phone Unavailable Care Team Providers Care Warehouse Forklift Operator Name Role Phone Gino Godfrey CP [...]
--- OUTSIDE RECORDS SUMMARY | 2016-11-23 06:50 | XMS REPORT ---
Author Author Gino Godfrey [facility] eClinicalWorks Address Unknown Phone Unavailable Care Team Providers Care Oncology Specialist Name Role Phone Gino Godfrey CP Unavailable [...]
--- OUTSIDE RECORDS SUMMARY | 2016-11-23 06:50 | XMS REPORT ---
Author Author Gino Godfrey [facility] eClinicalWorks Address Unknown Phone Unavailable Care Team Providers Care Technical Writer Name Role Phone Gino Godfrey CP [...]
--- OUTSIDE RECORDS SUMMARY | 2016-11-23 06:50 | XMS REPORT | Referral Summary ---
Author Author [facility] Organization [facility] Address Unknown Phone Unavailable Care Team Providers Care Hematology Oncology Consultant Name Role Phone Phyllis Godfrey Primary Care Physician [phone] Encounter Date(s): 09/21/16 - 09/21/16 [facility] [address] [place] [address] Discharge Diagnosis: Urinary retention Discharge Diagnosis: Neurogenic bladder Discharge Diagnosis: Urinary retention Discharge Diagnosis: Neurogenic bladder Discharge Disposition: 01-Home or Self Care Attending Physician: Matthew Snyder MD Admitting Physician: Matthew Snyder MD Vital Signs Most recent to 1 oldest [Reference Range]: Temperature Oral 37.4 degC [35.8-37.3 degC] *HI* (09/21/16 4:20 PM) Peripheral Pulse 100 bpm Rate [60-100 bpm] (09/21/16 4:20 PM) Heart Rate Monitored 108 bpm [60-100 bpm] *HI* (09/21/16 5:30 PM) Respiratory Rate 16 br/min [14-20 br/min] (09/21/16 4:20 PM) Blood Pressure 99/66 mmHg [90-140/60-90 mmHg] (09/21/16 5:30 PM) Mean Arterial 39 mmHg Pressure, Cuff (09/21/16 5:30 PM) SpO2 98 % (09/21/16 5:30 PM) Problem List Condition Effective Dates Status Health [...] Daily, # 90 caps, 1 Refill(s), Pharmacy: [facility] # [id number], 1 caps Oral Daily Start Date: 11/07/15 [...] to 1 oldest [Reference Range]: WBC [4.8-10.8 4.1 10*3/uL 10*3/uL] *LOW* (09/21/16 4:40 PM) RBC [4.00-5.20] 4.55 (09/21/16 4:40 PM) Hgb [12.0-16.0 12.9 gm/dL gm/dL] (09/21/16 4:40 PM) Hct [37.0-47.0 %] 40.1 % (09/21/16 4:40 PM) MCV [82.0-99.0 fL] 88.1 fL (09/21/16 4:40 PM) MCH [27.0-32.0 pg] 28.4 pg (09/21/16 4:40 PM) MCHC [32.0-36.0 32.2 gm/dL gm/dL] (09/21/16 4:40 PM) RDW [11.5-14.5 %] 13.4 % (09/21/16 4:40 PM) Platelet [150-400 183 10*3/uL 10*3/uL] (09/21/16 4:40 PM) MPV [9.4-12.4 fL] 10.8 fL (09/21/16 4:40 PM) Immature 0.0 % Granulocytes (09/21/16 4:40 PM) [0.0-1.0 %] Neutrophils [51-75 48 % %] *LOW* (09/21/16 4:40 PM) Lymphocytes [20-46 43 % %] (09/21/16 4:40 PM) Monocytes [4-11 %] 7 % (09/21/16 4:40 PM) Eosinophils [0-4 %] 2 % (09/21/16 4:40 PM) Basophils [0-2 %] 1 % (09/21/16 4:40 PM) Neutro Absolute 1.94 [1.90-7.00] (09/21/16 4:40 PM) Lymph Absolute 1.75 [0.80-3.30] (09/21/16 4:40 PM) [place] Absolute 0.29 [0.30-1.00] *LOW* (09/21/16 4:40 PM) Eos Absolute 0.06 [0.00-0.50] (09/21/16 4:40 PM) Baso Absolute 0.02 [0.00-0.20] (09/21/16 4:40 PM) Nucleated RBC 0.0 /100 WBC Automated [0 /100 (09/21/16 4:40 PM) WBC] Chemistry Most recent to 1 oldest [Reference Range]: Sodium Lvl [136-144 141 mEq/L mEq/L] (09/21/16 4:40 PM) Potassium Lvl 3.2 mEq/L [3.6-5.1 mEq/L] *LOW* (09/21/16 4:40 PM) Chloride [99-109 106 mEq/L mEq/L] (09/21/16 4:40 PM) CO2 [22-32 mEq/L] 25 mEq/L (09/21/16 4:40 PM) AGAP [3-20] 10 (09/21/16 4:40 PM) BUN [4-20 mg/dL] 12 mg/dL (09/21/16 4:40 PM) Glucose Lvl [70-100 102 mg/dL mg/dL] *HI* (09/21/16 4:40 PM) Creatinine Lvl 0.80 mg/dL [0.44-1.03 mg/dL] (09/21/16 4:40 PM) eGFR [>60] >60 1 (09/21/16 4:40 PM) Calcium Lvl 8.9 mg/dL [8.6-10.0 mg/dL] (09/21/16 4:40 PM) Albumin Lvl [3.5-4.8 4.0 gm/dL gm/dL] (09/21/16 4:40 PM) Total Protein 6.8 gm/dL [6.1-7.9 gm/dL] (09/21/16 4:40 PM) Globulin [1.9-4.3 2.8 gm/dL gm/dL] (09/21/16 4:40 PM) ALT [14-54 U/L] 24 U/L (09/21/16 4:40 PM) AST [15-41 U/L] 74 U/L *HI* (09/21/16 4:40 PM) Alk Phos [26-104 99 U/L U/L] (09/21/16 4:40 PM) Bili Total [0.2-1.2 0.2 mg/dL 2 mg/dL] (09/21/16 4:40 PM) 1Result Comment: Multiply eGFR results by 1.21 for race. 2Result Comment: Naproxen, specifically the metabolite O-desmethylnaproxen, may cause spurious elevation in Total Bilirubin levels. Urinalysis Most recent to 1 oldest [Reference Range]: UA Color Esha *ABN* (09/21/16 4:40 PM) UA Appear Clear (09/21/16 4:40 PM) UA pH [5.0-8.0] 5.0 (09/21/16 4:40 PM) UA Leuk Est Negative [Negative] (09/21/16 4:40 PM) UA Nitrite Negative [Negative] (09/21/16 4:40 PM) UA Protein Negative [Negative] (09/21/16 4:40 PM) UA Glucose Negative [Negative] (09/21/16 4:40 PM) UA Ketones Trace [Negative] *ABN* (09/21/16 4:40 PM) UA Urobilinogen Negative [<1.0] (09/21/16 4:40 PM) UA Bili [Negative] Negative (09/21/16 4:40 PM) UA Blood [Negative] Negative (09/21/16 4:40 PM) UA Spec Grav 1.035 [1.003-1.030] *ABN* (09/21/16 4:40 PM) Type Catheter (09/21/16 4:40 PM) Immunizations No data available for this section Procedures Procedure Date Related Diagnosis Body Site Colonoscopy1 11/07/15 Esophagogastroduodenoscopy - SN2 11/07/15 Procedure with Anesthesia3 11/07/15 Cholecystectomy;2011 Coccyx2011 Hysterectomy 2000 Bladder6 Thyroidectomy 1auto-populated from [...]
--- OUTSIDE RECORDS SUMMARY | 2016-11-23 06:50 | XMS REPORT ---
Author Author Gino Godfrey Organization eClinicalWorks Address Unknown Phone Unavailable Care Team Providers Care Engine Oiler Name Role Phone Gino Godfrey CP Unavailable [...] Start Date End Date Status Dosage Cymbalta [facility] [id number] 60 Orally Twice a day 1 capsule Results No Known Results Summary Purpose eClinicalWorks Submission
--- OUTSIDE RECORDS SUMMARY | 2016-11-23 06:50 | XMS REPORT ---
Author Author Gino Godfrey [facility] eClinicalWorks Address Unknown Phone Unavailable Care Team Providers Care Riprap Placer Name Role Phone Gino Godfrey Unavailable Allergies, Adverse Reactions, Alerts Substance Reaction Event Type Morphine Sulfate Info Not Available Drug Allergy Medrol (Edgard) Info Not Available Drug Allergy Bactrim Info Not Available Drug Allergy Aleve Info Not Available Drug Allergy Problems Problem Type Condition Code Onset Dates Condition Status Assessment Urinary retention R33.9 Active Problem Unspecified asthma, uncomplicated J45.909 Active Assessment Chronic low back pain M54.5 Active Assessment Panic attack F41.0 Active Problem Chronic low back pain M54.5 Active Problem Hypothyroidism, unspecified E03.9 Active Problem Acute cystitis without hematuria N30.00 Active Problem Depression, uncontrolled F32.9 Active Problem Panic attack F41.0 Active Problem Chronic radicular lumbar pain M54.16 Active Problem Urinary retention R33.9 Active Medications Medication Code System Code Instructions Start Date End Date Status Dosage ProAir RespiClick [facility] [address]-99 108 (90 Base) MCG/ACT Inhalation every 4 hrs December 29, 2015 1 puff as needed Levothyroxine Sodium [facility] 09301365301 75 TAKE ONE TABLET BY MOUTH DAILY. NEED LAB. Oxycodone HCl [facility] [address]-68 10 MG Orally 3 times a day, with occasional 1 tablet daily, max of 4/day. 90 tabs to last 28 days December 01, 2012 1 tablet Demerol [facility] [address]-27 50 MG IM NOW with 50mg Phenergan November 24, 2015 50 mg/ml Promethazine HCl [facility] 80313413439 25 TAKE ONE TABLET BY MOUTH EVERY 4 TO 6 HOURS NEEDED FOR NAUSEA Diazepam [facility] [address]-42 10 MG Orally TID Sep 29, 2014 1 tablet as needed Potassium Chloride [facility] [address]-77 10 MEQ Orally bid December 01, 2015 as directed Movantik [facility] [address]-93 25 mg Orally Once a day December 29, 2015 1 tablet in the morning Phenergan [facility] [address]-76 50 MG/ML Injection now with 50mg Demerol November 24, 2015 0.5 ml as needed Omeprazole [facility] [address]-07 40 mg as directed Macrobid [facility] [address]-83 100 MG Orally every 12 hrs February 19, 2016 as directed Acyclovir [facility] [address]-81 800 MG Orally 5 times a day Mar 15, 2016 1 tablet Gabapentin [facility] 45856629859 400 TAKE ONE CAPSULE BY MOUTH THREE TIMES A DAY Kwfkxotfhe-EFME-Zlznpncb [facility] 44490708688 50-325-40 Orally QD, as needed 1 tablet Dexilant [facility] [address]-24 60 MG Orally Once a day November 08, 2015 1 capsule Cymbalta [facility] [address]-38 60 MG Orally Twice a day 1 capsule Fentanyl [facility] [address]-32 100 MCG/HR Transdermal every 72 hrs December 01, 2012 1 patch to skin Procedures Procedure Coding System Code Date OFFICE VISITEST PT CPT-4 03509 Mar 15, 2016 Vital Signs Date/Time: Mar 15, 2016 Blood Pressure Systolic 112 mm Hg Height 5 ft 6 in in Weight 119.1 lbs BMI 19.22 Index Blood Pressure Diastolic 74 mm Hg Results No Known Results Summary Purpose eClinicalWorks Submission
--- OUTSIDE RECORDS SUMMARY | 2016-11-23 06:50 | XMS REPORT ---
Author Author Gino Godfrey [facility] eClinicalWorks Address Unknown Phone Unavailable Care Team Providers Care Communications Associate Name Role Phone Gino Godfrey CP Unavailable [...]
--- OUTSIDE RECORDS SUMMARY | 2016-11-23 06:50 | XMS REPORT ---
Author Author Gino Godfrey [facility] eClinicalWorks Address Unknown Phone Unavailable Care Team Providers Care Financial Writer Name Role Phone Gino Godfrey CP [...]
--- OUTSIDE RECORDS SUMMARY | 2016-11-23 06:50 | XMS REPORT ---
Author Author Gino Godfrey [facility] eClinicalWorks Address Unknown Phone Unavailable Care Team Providers Care Piggery Worker Name Role Phone Gino Godfrey CP Unavailable [...]
--- OUTSIDE RECORDS SUMMARY | 2016-11-23 06:50 | XMS REPORT ---
Author Author Gino Godfrey [facility] eClinicalWorks Address Unknown Phone Unavailable Care Team Providers Care Fermenter Operator Name Role Phone Gino Godfrey CP [...]
--- OUTSIDE RECORDS SUMMARY | 2016-11-23 06:50 | XMS REPORT ---
Author Author Gino Godfrey [facility] eClinicalWorks Address Unknown Phone Unavailable Care Team Providers Care Reference Library Assistant Name Role Phone Gino Godfrey CP Unavailable [...]
--- OUTSIDE RECORDS SUMMARY | 2016-11-23 06:50 | XMS REPORT ---
Author Author Gino Godfrey [facility] eClinicalWorks Address Unknown Phone Unavailable Care Team Providers Care Chief Knowledge Officer Name Role Phone Gino Godfrey Unavailable Allergies, [...] Problem Unspecified asthma, uncomplicated J45.909 Active Assessment Cystitis with hematuria N30.91 Active Assessment Acute cystitis without hematuria N30.00 Active Problem Acute cystitis without hematuria N30.00 Active Problem Chronic low back pain M54.5 Active Problem Cystitis with hematuria N30.91 Active Problem Urinary retention R33.9 Active Problem Depression, uncontrolled F32.9 Active Problem Hypothyroidism, unspecified E03.9 Active Problem Chronic radicular lumbar pain M54.16 Active Medications Medication Code System Code Instructions Start Date End Date Status Dosage Diazepam [facility] [address]-25 10 MG Orally TID Sep 29, 2014 1 tablet as needed Levothyroxine Sodium [facility] 18372568290 75 TAKE ONE TABLET BY MOUTH DAILY. NEED LAB. Ceftin [facility] [address]-37 250 MG Orally Twice a day May 03, 2016 1 tablet Dexilant [facility] [address]-74 60 MG Orally Once a day November 08, 2015 1 capsule Fentanyl [facility] [address]-65 100 MCG/HR Transdermal every 72 hrs December 01, 2012 1 patch to skin Demerol [facility] [address]-46 50 MG/ML Injection now May 03, 2016 with phenergan 50 mg ProAir RespiClick [facility] [address]-97 108 (90 Base) MCG/ACT Inhalation every 4 hrs December 29, 2015 1 puff as needed Uxabvxkxmr-KUPC-Pnsnaown [facility] 61675136306 50-325-40 Orally QD, as needed 1 tablet Gabapentin [facility] 90606882021 400 TAKE ONE CAPSULE BY MOUTH THREE TIMES A DAY Oxycodone HCl [facility] [address]-77 10 MG Orally 3 times a day, with occasional 1 tablet daily, max of 4/day. 90 tabs to last 28 days December 01, 2012 1 tablet Cymbalta [facility] [address]-01 60 MG Orally Twice a day 1 capsule Phenergan [facility] [address]-33 50 MG/ML Injection now with 50mg Demerol November 24, 2015 0.5 ml as needed Promethazine HCl [facility] 57839647447 25 TAKE ONE TABLET BY MOUTH EVERY 4 TO 6 HOURS NEEDED NAUSEA Procedures Procedure Coding System Code Date Administration Fee /THER/PROPH/DIAG INJ, SC/IM CPT-4 92746 May 03, 2016 Phenergan 50mg CPT-4 J2550 May 03, 2016 Demerol 25-50mg CPT-4 J2175 May 03, 2016 OFFICE VISITEST PT CPT-4 32733 May 03, 2016 URINE CULTURE CPT-4 09515 May 03, 2016 Vital Signs Date/Time: May 03, 2016 Blood Pressure Systolic 111 mm Hg Height 5 ft 6 in in Weight 115.1 lbs BMI 18.58 Index Blood Pressure Diastolic 70 mm Hg Results Name Result Date Reference Range Unit Abnormality Flag Urine Culture #[id number] Summary Purpose eClinicalWorks Submission
--- OUTSIDE RECORDS SUMMARY | 2016-11-23 06:50 | XMS REPORT ---
Author Author Gino Godfrey [facility] eClinicalWorks Address Unknown Phone Unavailable Care Team Providers Care Senior Medical Transcriptionist Name Role Phone Gino Godfrey CP Unavailable [...]
--- OUTSIDE RECORDS SUMMARY | 2016-11-23 06:50 | XMS REPORT ---
Author Author Gino Godfrey [facility] eClinicalWorks Address Unknown Phone Unavailable Care Team Providers Care Ui Engineer Name Role Phone Gino Godfrey Unavailable Allergies, Adverse Reactions, Alerts Substance Reaction Event Type Morphine Sulfate Info Not Available Drug Allergy Medrol (Edgard) Info Not Available Drug Allergy Bactrim Info Not Available Drug Allergy Aleve Info Not Available Drug Allergy Problems Problem Type Condition Code Onset Dates Condition Status Assessment Chronic low back pain M54.5 Active Problem Unspecified asthma, uncomplicated J45.909 Active Assessment Dysuria R30.0 Active Assessment Abnormal urinalysis R82.90 Active Assessment Recurrent UTI N39.0 Active Problem Chronic low back pain M54.5 Active Problem Hypothyroidism, unspecified E03.9 Active Problem Acute cystitis without hematuria N30.00 Active Problem Depression, uncontrolled F32.9 Active Problem Panic attack F41.0 Active Problem Chronic radicular lumbar pain M54.16 Active Problem Urinary retention R33.9 Active Medications Medication Code System Code Instructions Start Date End Date Status Dosage Dexilant [facility] [address]-16 60 MG Orally Once a day November 08, 2015 1 capsule Fentanyl [facility] [address]-27 100 MCG/HR Transdermal every 72 hrs December 01, 2012 1 patch to skin ProAir RespiClick [facility] [address]-73 108 (90 Base) MCG/ACT Inhalation every 4 hrs December 29, 2015 1 puff as needed Phenergan [facility] [address]-99 50 MG/ML Injection now with 50mg Demerol November 24, 2015 0.5 ml as needed Movantik [facility] [address]-25 25 mg Orally Once a day December 29, 2015 1 tablet in the morning Diazepam [facility] [address]-33 10 MG Orally TID Sep 29, 2014 1 tablet as needed Cymbalta [facility] [address]-63 60 MG Orally Twice a day 1 capsule Macrobid [facility] [address]-01 100 MG Orally every 12 hrs February 19, 2016 as directed Oesuunkrkx-MPES-Iqrwdldm [facility] 13814089394 50-325-40 Orally QD, as needed 1 tablet Oxycodone HCl [facility] [address]-32 10 MG Orally 3 times a day, with occasional 1 tablet daily, max of 4/day. 90 tabs to last 28 days December 01, 2012 1 tablet Remeron [facility] [address]-81 15 MG Orally Once a day December 29, 2015 1 tablet before bedtime in the evening Levothyroxine Sodium [facility] 26097750939 75 TAKE ONE TABLET BY MOUTH DAILY. NEED LAB. Demerol [facility] [address]-74 50 MG IM NOW with 50mg Phenergan November 24, 2015 50 mg/ml Promethazine HCl [facility] 44065030717 25 Orally Q 4-6 HRS PRN nausea TAKE ONE TABLET BY MOUTH EVERY 6 HOURS Potassium Chloride [facility] [address]-94 10 MEQ Orally bid December 01, 2015 as directed Omeprazole [facility] [address]-18 40 mg as directed Gabapentin [facility] 78238092981 400 TAKE ONE CAPSULE BY MOUTH THREE TIMES A DAY Procedures Procedure Coding System Code Date RENAL PROFILE CPT-4 55834 February 19, 2016 URINE CULTURE CPT-4 18818 February 19, 2016 URINALYSIS CPT-4 86561 February 19, 2016 OFFICE VISITEST PT CPT-4 85778 February 19, 2016 Vital Signs Date/Time: February 19, 2016 Blood Pressure Systolic 111 mm Hg Height 5 ft 6 in in Weight 120.8 lbs BMI 19.50 Index Blood Pressure Diastolic 78 mm Hg Results Name Result Date Reference Range Unit Abnormality Flag Urine Culture #[id number] RENAL PROFILE ----PHOSPHORUS 3.3 [id number] 2.6-4.5 MG/DL ----CALCIUM 9.4 [id number] 8.7-10.3 MG/DL ----CO2 27 [id number] 23-31 MMOL/L ----CHLORIDE 103 [id number] 96-108 MMOL/L ----POTASSIUM 3.5 [id number] 3.3-5.1 MMOL/L ----GLUCOSE 123 [id number] 60-99 MG/DL H ----ALBUMIN 4.2 [id number] 3.2-5.2 G/DL ----BUN 10 [id number] 6-20 MG/DL ----CREATININE 0.7 [id number] 0.4-1.1 MG/DL ----SODIUM 144 20160219 133-145 MMOL/L Urinalysis ----GLUCOSE NORM 20160219 NEG MG/DL ----PROTEIN NEG 20160219 NEGATIVE ----UROBILINOGEN 4 [id number] 0 - 1.0 MG/DL ----KETONES NEG 20160219 NEGATIVE ----OTHER CASTS 0 20160219 NONE/LPF lpf ----BLOOD NEG 20160219 NEGATIVE ----SPEC GRAVITY 1.021 [id number] 1.016-1.022 ----BILIRUBIN NEG 20160219 NEGATIVE ----ABEL-TRANS EPITH OCCASIONAL 20160219 NONE/HPF hpf ----NITRITES NEG 20160219 NEGATIVE ----SQUAMOUS EPITH FEW 35806696 FEW/HPF hpf ----pH 6 95202653 5-8 ----CLARITY CLD 20160219 CLEAR ---- WBC 20-25 W/CLUMP [id number] 0-5/HPF hpf ---- RBC 0-2 [id number] 0-2/HPF hpf ----LEUKOCYTES + [id number] NEGATIVE ----MUCOUS 0 74959322 NONE/HPF hpf ----COLOR D.YEL 20160219 YELLOW-STRAW ----BACTERIA 3+ [id number] NONE/HPF hpf ----CRYSTALS 0 18424661 NONE/HPF hpf Summary Purpose eClinicalWorks Submission
--- OUTSIDE RECORDS SUMMARY | 2016-11-23 06:50 | XMS REPORT ---
Author Author Gino Godfrey [facility] eClinicalWorks Address Unknown Phone Unavailable Care Team Providers Care Cath Lab Radiology Technician Name Role Phone Gino Godfrey Unavailable Allergies, [...] Date End Date Status Dosage Promethazine HCl [facility] 21806591150 25 TAKE ONE TABLET BY MOUTH EVERY 4 HOURS NEEDED AND AT BEDTIME Oxycodone HCl [facility] [address]-38 10 MG Orally 5 times a day December 01, 2012 1 tablet as needed Gabapentin [facility] [address]-48 400 MG Orally Three times a day October 19, 2012 1 capsule Venlafaxine HCl ER [facility] 93534006417 75 TAKE THREE CAPSULES BY MOUTH DAILY WITH FOOD Diazepam [facility] [address]-31 10 MG Orally Twice a day Sep 29, 2014 1 tablet as needed Fentanyl [facility] [address]-88 100 MCG/HR Transdermal every 72 hrs December 01, 2012 1 patch to skin Rvsrleqcke-NEUV-Fykqpgwh [facility] 76717158817 50-325-40 Orally TID, as needed, MOS OF 3 PER DAY, TRY TO TAKE LESS 1 TABLET Procedures Procedure Coding System Code Date OFFICE VISITEST PT CPT-4 62430 October 26, 2014 Vital Signs Date/Time: October 26, 2014 Blood Pressure Systolic 116 mm Hg Height 5 ft 6 in in Weight 129.3 lbs BMI 20.87 Index Blood Pressure Diastolic 72 mm Hg Results No Known Results Summary Purpose eClinicalWorks Submission
--- OUTSIDE RECORDS SUMMARY | 2016-11-23 06:50 | XMS REPORT ---
Author Author Gino Godfrey [facility] eClinicalWorks Address Unknown Phone Unavailable Care Team Providers Care Asphalt Patcher Name Role Phone Gino Godfrey CP Unavailable [...]
--- OUTSIDE RECORDS SUMMARY | 2016-11-23 06:50 | XMS REPORT ---
Author Author Gino Godfrey [facility] eClinicalWorks Address Unknown Phone Unavailable Care Team Providers Care Train Caller Name Role Phone Gino Godfrey CP Unavailable [...]
--- OUTSIDE RECORDS SUMMARY | 2016-11-23 06:50 | XMS REPORT ---
Author Author Gino Godfrey [facility] eClinicalWorks Address Unknown Phone Unavailable Care Team Providers Care Boiler Assistant Operator Name Role Phone Gino Godfrey CP [...]
--- NOTE | 2016-11-23 06:51 | NUR ---
CCU RN HERE CANDIDA MITCHELL AT BEDSIDE TO HELP ASSESS PT
--- OUTSIDE RECORDS SUMMARY | 2016-11-23 06:51 | XMS REPORT ---
Author Author Gino Godfrey [facility] eClinicalWorks Address Unknown Phone Unavailable Care Team Providers Care Dye Worker Name Role Phone Gino Godfrey Unavailable Allergies No Known Allergies Problems Problem Type Condition Code Onset Dates Condition Status Problem Depression 311 Active Problem Urinary retention 788.20 Active Problem Panic attacks 300.01 Active Problem Chronic lumbar radiculopathy 724.4 Active Problem Low back pain 724.2 Active Problem Hypothyroidism 244.9 Active Medications Medication Code System Code Instructions Start Date End Date Status Dosage Owgfrwgaru-AHFB-Xfwjxeyg [facility] 81305892291 50-325-40 Orally TID, as needed, MOS OF 3 PER DAY, TRY TO TAKE LESS 1 TABLET Results No Known Results Summary Purpose eClinicalWorks Submission
--- OUTSIDE RECORDS SUMMARY | 2016-11-23 06:51 | XMS REPORT ---
Author Author Gino Godfrey [facility] eClinicalWorks Address Unknown Phone Unavailable Care Team Providers Care Caustic Operator Name Role Phone Gino Godfrey Unavailable Allergies, Adverse Reactions, Alerts Substance Reaction Event Type Morphine Sulfate Info Not Available Drug Allergy Medrol (Edgard) Info Not Available Drug Allergy Bactrim Info Not Available Drug Allergy Aleve Info Not Available Drug Allergy Problems Problem Type Condition ICD-9 Code Onset Dates Condition Status Assessment Panic attacks 300.01 Active Assessment Low back pain 724.2 Active Assessment Depression 311 Active Assessment Hypothyroidism 244.9 Active Assessment RAD (reactive airway disease) 493.90 Active Problem Hypothyroidism, unspecified E03.9 Active Problem Chronic radicular lumbar pain M54.16 Active Problem Chronic low back pain M54.5 Active Problem Panic attack F41.0 Active Problem Unspecified asthma, uncomplicated J45.909 Active Problem Urinary retention R33.9 Active Problem Depression, uncontrolled F32.9 Active Medications Medication Code System Code Instructions Start Date End Date Status Dosage Promethazine HCl [facility] [address]-00 25 MG Orally q 6 hrs 1 tablet Gabapentin [facility] 34605802919 400 TAKE ONE CAPSULE BY MOUTH THREE TIMES A DAY Fentanyl [facility] [address]-64 100 MCG/HR Transdermal every 72 hrs December 01, 2012 1 patch to skin Diazepam [facility] [address]-75 10 MG Orally TID Sep 29, 2014 1 tablet as needed Tobpebyzdj-UOFB-Pcdozbjx [facility] 69390773510 50-325-40 Orally QD take one tablet by mouth daily as needed Cymbalta [facility] 72131304671 60 Orally Twice a day 1 capsule Oxycodone HCl [facility] [address]-17 10 MG Orally 3 times a day December 01, 2012 1 tablet as needed Procedures Procedure Coding System Code Date OFFICE VISITEST PT CPT-4 17649 May 05, 2015 Vital Signs Date/Time: May 05, 2015 Blood Pressure Systolic 125 mm Hg Height 5 ft 6 in in Weight 136 lbs BMI 21.95 Index Cardiac Monitoring Heart Rate 97 /min Blood Pressure Diastolic 87 mm Hg Results No Known Results Summary Purpose eClinicalWorks Submission
--- OUTSIDE RECORDS SUMMARY | 2016-11-23 06:51 | XMS REPORT ---
Author Author Gino Godfrey [facility] eClinicalWorks Address Unknown Phone Unavailable Care Team Providers Care Probate Clerk Name Role Phone Gino Godfrey Unavailable Allergies No Known Allergies Problems Problem Type Condition ICD-9 Code Onset Dates Condition Status Problem Depression 311 Active Problem Urinary retention 788.20 Active Problem Panic attacks 300.01 Active Problem Chronic lumbar radiculopathy 724.4 Active Problem Low back pain 724.2 Active Problem Hypothyroidism 244.9 Active Medications Medication Code System Code Instructions Start Date End Date Status Dosage Macrobid [facility] [address]-06 100 MG Orally every 12 hrs Jun 03, 2014 Active 1 capsule with food Cipro [facility] [address]-77 250 MG Orally every 12 hrs May 25, 2014 Inactive 1 tablet Results No Known Results Summary Purpose eClinicalWorks Submission
--- OUTSIDE RECORDS SUMMARY | 2016-11-23 06:51 | XMS REPORT ---
Author Author Gino Godfrey [facility] eClinicalWorks Address Unknown Phone Unavailable Care Team Providers Care Millinery Worker Name Role Phone Gnio Godfrey Unavailable Allergies No Known Allergies Problems Problem Type Condition ICD-9 Code Onset Dates Condition Status Problem Depression 311 Active Problem Urinary retention 788.20 Active Problem Panic attacks 300.01 Active Problem Chronic lumbar radiculopathy 724.4 Active Problem Low back pain 724.2 Active Problem Hypothyroidism 244.9 Active Medications Medication Code System Code Instructions Start Date End Date Status Dosage Phenergan [facility] [address]-96 25 mg Rectal 1 EVERY 6 HRS May 17, 2014 Active as directed Results No Known Results Summary Purpose eClinicalWorks Submission
--- OUTSIDE RECORDS SUMMARY | 2016-11-23 06:51 | XMS REPORT ---
Author Author Gino Godfrey [facility] eClinicalWorks Address Unknown Phone Unavailable Care Team Providers Care Kitchen And Counter Worker Name Role Phone Gino Godfrey CP [...]
--- OUTSIDE RECORDS SUMMARY | 2016-11-23 06:51 | XMS REPORT ---
Author Author Gino Godfrey [facility] eClinicalWorks Address Unknown Phone Unavailable Care Team Providers Care Supervisor Home Economics Name Role Phone Gino Godfrey CP Unavailable [...]
--- OUTSIDE RECORDS SUMMARY | 2016-11-23 06:51 | XMS REPORT ---
Author Author Gino Godfrey [facility] eClinicalWorks Address Unknown Phone Unavailable Care Team Providers Care Hothouse Worker Name Role Phone Gino Godfrey CP [...] Start Date End Date Status Dosage Macrobid [facility] [address]-27 100 MG Orally every 12 hrs Jul 01, 2015 1 capsule with food Results No Known Results Summary Purpose eClinicalWorks Submission
--- OUTSIDE RECORDS SUMMARY | 2016-11-23 06:51 | XMS REPORT ---
Author Author Gino Godfrey [facility] eClinicalWorks Address Unknown Phone Unavailable Care Team Providers Care Railroad Track Inspector Name Role Phone Gino Godfrey CP [...]
--- OUTSIDE RECORDS SUMMARY | 2016-11-23 06:51 | XMS REPORT | Referral Summary ---
Author Author [facility] Organization [facility] Address Unknown Phone Unavailable Care Team Providers Care Marine Painter Name Role Phone Bekah, W Primary Care Physician [phone] Encounter VC Date(s): 04/12/16 - 04/12/16 [facility] [address] [place] [address] Discharge Diagnosis: Chronic UTI (urinary tract infection) Discharge Diagnosis: Chronic abdominal pain Discharge Disposition: 01-Home or Self Care Attending Physician: Ankush Holden MD Admitting Physician: Ankush Holden MD Vital Signs Most recent to 1 oldest [Reference Range]: Temperature Oral 37.1 degC [35.8-37.3 degC] (04/12/16 3:56 PM) Peripheral Pulse 106 bpm Rate [60-100 bpm] *HI* (04/12/16 3:56 PM) Heart Rate Monitored 72 bpm [60-100 bpm] (04/12/16 8:09 PM) Respiratory Rate 16 br/min [14-20 br/min] (04/12/16 7:06 PM) Blood Pressure 102/71 mmHg [90-140/60-90 mmHg] (04/12/16 8:09 PM) Mean Arterial 80 mmHg Pressure, Cuff (04/12/16 8:09 PM) SpO2 97 % (04/12/16 8:09 PM) Problem List Condition Effective Dates Status [...] Daily, # 90 caps, 1 Refill(s), Pharmacy: [facility] # [id number], 1 caps Oral Daily Start Date: 11/07/15 [...] to 1 oldest [Reference Range]: WBC [4.8-10.8 4.8 10*3/uL 10*3/uL] (04/12/16 7:02 PM) RBC [4.00-5.20] 4.22 (04/12/16 7:02 PM) Hgb [12.0-16.0 11.6 gm/dL gm/dL] *LOW* (04/12/16 7:02 PM) Hct [37.0-47.0 %] 36.0 % *LOW* (04/12/16 7:02 PM) MCV [82.0-99.0 fL] 85.3 fL (04/12/16 7:02 PM) MCH [27.0-32.0 pg] 27.5 pg (04/12/16 7:02 PM) MCHC [32.0-36.0 32.2 gm/dL gm/dL] (04/12/16 7:02 PM) RDW [11.5-14.5 %] 13.1 % (04/12/16 7:02 PM) Platelet [150-400 167 10*3/uL 10*3/uL] (04/12/16 7:02 PM) MPV [9.4-12.4 fL] 10.1 fL (04/12/16 7:02 PM) Immature 0.2 % Granulocytes (04/12/16 7:02 PM) [0.0-1.0 %] Neutrophils [51-75 50 % %] *LOW* (04/12/16 7:02 PM) Lymphocytes [20-46 41 % %] (04/12/16 7:02 PM) Monocytes [4-11 %] 5 % (04/12/16 7:02 PM) Eosinophils [0-4 %] 4 % (04/12/16 7:02 PM) Basophils [0-2 %] 0 % (04/12/16 7:02 PM) Neutro Absolute 2.37 10*3 [1.90-7.00 10*3] (04/12/16 7:02 PM) Lymph Absolute 1.97 10*3 [0.80-3.30 10*3] (04/12/16 7:02 PM) [place] Absolute 0.23 10*3 [0.30-1.00 10*3] *LOW* (04/12/16 7:02 PM) Eos Absolute 0.18 10*3 [0.00-0.50 10*3] (04/12/16 7:02 PM) Baso Absolute 0.01 10*3 [0.00-0.20 10*3] (04/12/16 7:02 PM) Nucleated RBC 0.0 /100 WBC Automated [0 /100 (04/12/16 7:02 PM) WBC] Chemistry Most recent to 1 oldest [Reference Range]: Sodium Lvl [136-144 141 mEq/L mEq/L] (04/12/16 7:02 PM) Potassium Lvl 3.8 mEq/L [3.6-5.1 mEq/L] (04/12/16 7:02 PM) Chloride [99-109 107 mEq/L mEq/L] (04/12/16 7:02 PM) CO2 [22-32 mEq/L] 28 mEq/L (04/12/16 7:02 PM) AGAP [3-20] 6 (04/12/16 7:02 PM) BUN [4-20 mg/dL] 11 mg/dL (04/12/16 7:02 PM) Glucose Lvl [70-100 95 mg/dL mg/dL] (04/12/16 7:02 PM) Creatinine Lvl 0.61 mg/dL [0.44-1.03 mg/dL] (04/12/16 7:02 PM) eGFR [>60] >60 1 (04/12/16 7:02 PM) Calcium Lvl 8.6 mg/dL [8.6-10.0 mg/dL] (04/12/16 7:02 PM) Screen, Negative Urine NPT (04/12/16 4:36 PM) 1Result Comment: Multiply eGFR results by 1.21 for race. Urinalysis Most recent to 1 oldest [Reference Range]: UA Color Esha *ABN* (04/12/16 4:33 PM) UA Appear Sl Cloudy (04/12/16 4:33 PM) UA pH [5.0-8.0] 5.0 (04/12/16 4:33 PM) UA Leuk Est Pos 3+ [Negative] *ABN* (04/12/16 4:33 PM) UA Nitrite Negative [Negative] (04/12/16 4:33 PM) UA Protein Negative [Negative] (04/12/16 4:33 PM) UA Glucose Negative [Negative] (04/12/16 4:33 PM) UA Ketones Negative [Negative] (04/12/16 4:33 PM) UA Urobilinogen Negative [<1.0] (04/12/16 4:33 PM) UA Bili [Negative] Negative (04/12/16 4:33 PM) UA Blood [Negative] Negative (04/12/16 4:33 PM) UA Spec Grav 1.020 [1.003-1.030] (04/12/16 4:33 PM) Type Catheter (04/12/16 4:33 PM) UA WBC [0-4 /HPF] >50 /HPF *ABN* (04/12/16 4:33 PM) UA RBC [0-2] 2-5 (04/12/16 4:33 PM) Epithelial Cells 0-2 (04/12/16 4:33 PM) UA Bacteria Numerous *ABN* (04/12/16 4:33 PM) Crystals Ca Ox (04/12/16 4:33 PM) UA Mucous Present (04/12/16 4:33 PM) Immunizations No data available for this [...]
--- OUTSIDE RECORDS SUMMARY | 2016-11-23 06:51 | XMS REPORT ---
Author Author Gino Godfrey [facility] eClinicalWorks Address Unknown Phone Unavailable Care Team Providers Care Electric Deicer Assembler Name Role Phone Gino Godfrey Unavailable Allergies [...] Start Date End Date Status Dosage Cymbalta [facility] [address]-68 60 MG Orally Twice a day 1 capsule Results No Known Results Summary Purpose eClinicalWorks Submission
--- OUTSIDE RECORDS SUMMARY | 2016-11-23 06:51 | XMS REPORT ---
Author Author Gino Godfrey [facility] eClinicalWorks Address Unknown Phone Unavailable Care Team Providers Care Line Worker Name Role Phone Gino Godfrey CP [...]
--- OUTSIDE RECORDS SUMMARY | 2016-11-23 06:51 | XMS REPORT ---
Author Author Gino Godfrey [facility] eClinicalWorks Address Unknown Phone Unavailable Care Team Providers Care Director Hardware Name Role Phone Gino Godfrey CP Unavailable [...]
--- OUTSIDE RECORDS SUMMARY | 2016-11-23 06:51 | XMS REPORT ---
Author Author Gino Godfrey [facility] eClinicalWorks Address Unknown Phone Unavailable Care Team Providers Care Hide Or Skin Buffer Name Role Phone Gino Godfrey CP Unavailable Allergies No Known Allergies Problems Problem Type Condition Code Onset Dates Condition Status Assessment Acute renal failure, unspecified acute renal failure type N17.9 Active Problem Panic attack F41.0 Active Problem [...]
--- OUTSIDE RECORDS SUMMARY | 2016-11-23 06:51 | XMS REPORT ---
Author Author Gino Godfrey [facility] eClinicalWorks Address Unknown Phone Unavailable Care Team Providers Care Planning Technician Name Role Phone Gino Godfrey CP [...]
--- OUTSIDE RECORDS SUMMARY | 2016-11-23 06:52 | XMS REPORT ---
Author Author Gino Godfrey [facility] eClinicalWorks Address Unknown Phone Unavailable Care Team Providers Care Food Assembler Name Role Phone Gino Godfrey CP Unavailable [...]
--- OUTSIDE RECORDS SUMMARY | 2016-11-23 06:52 | XMS REPORT ---
Author Author Gino Godfrey [facility] eClinicalWorks Address Unknown Phone Unavailable Care Team Providers Care Senior Chemical Engineer Name Role Phone Gino Godfrey Unavailable Allergies No Known Allergies Problems Problem Type Condition Code Onset Dates Condition Status Problem Depression 311 Active Problem Urinary retention 788.20 Active Problem Panic attacks 300.01 Active Problem Chronic lumbar radiculopathy 724.4 Active Problem Low back pain 724.2 Active Problem Hypothyroidism 244.9 Active Medications Medication Code System Code Instructions Start Date End Date Status Dosage Xanax [facility] [address]-04 1 MG Orally 30 min. before check in for procedure, with food, must have a sales route driver helper December 28, 2014 1 tablet Results No Known Results Summary Purpose eClinicalWorks Submission
--- OUTSIDE RECORDS SUMMARY | 2016-11-23 06:52 | XMS REPORT ---
Author Author Gino Godfrey [facility] eClinicalWorks Address Unknown Phone Unavailable Care Team Providers Care Sports Clerk Name Role Phone Gino Godfrey CP [...]
--- OUTSIDE RECORDS SUMMARY | 2016-11-23 06:52 | XMS REPORT | Referral Summary ---
Author Author [facility] Organization [facility] Address Unknown Phone Unavailable Care Team Providers Care Department Specialist Name Role Phone Phyllis Godfrey Primary Care Physician [phone] Encounter VC Date(s): 11/07/15 - 11/07/15 [facility] [address] [place] [address] Discharge Disposition: 01-Home or Self Care Attending Physician: Liliana Lee MD Vital Signs Most recent to 1 oldest [Reference Range]: Temperature Temporal 36.2 degC Artery [36.3-37.8 *LOW* degC] (11/07/15 11:15 AM) Apical Heart Rate 80 bpm [60-100 bpm] (11/07/15 8:35 AM) Heart Rate Monitored 75 bpm [60-100 bpm] (11/07/15 12:15 PM) Respiratory Rate 14 br/min [14-20 br/min] (11/07/15 12:15 PM) Blood Pressure 108/79 mmHg [90-140/60-90 mmHg] (11/07/15 12:15 PM) Mean Arterial 88 mmHg Pressure, Cuff (11/07/15 12:15 PM) SpO2 95 % (11/07/15 12:15 PM) Problem List No data available for [...] # 90 caps, 1 Refill(s), Pharmacy: [facility] # [id number], 1 caps Oral Daily Start Date: 11/07/15 Status: Ordered Percocet 10/325 oral tablet 1 [...]
--- OUTSIDE RECORDS SUMMARY | 2016-11-23 06:52 | XMS REPORT ---
Author Author Gino Godfrey [facility] eClinicalWorks Address Unknown Phone Unavailable Care Team Providers Care Engineered Wood Designer Name Role Phone Gino Godfrey CP Unavailable [...]
--- OUTSIDE RECORDS SUMMARY | 2016-11-23 06:52 | XMS REPORT ---
Author Author Gino Godfrey [facility] eClinicalWorks Address Unknown Phone Unavailable Care Team Providers Care Home Health Assistant Name Role Phone Gino Godfrey CP [...]
--- OUTSIDE RECORDS SUMMARY | 2016-11-23 06:52 | XMS REPORT ---
Author Author Gino Godfrey [facility] eClinicalWorks Address Unknown Phone Unavailable Care Team Providers Care Scrap Worker Name Role Phone Gino Godfrey Unavailable [...] Start Date End Date Status Dosage Gabapentin [facility] [address]-67 400 MG Orally Three times a day October 19, 2012 1 capsule Diazepam [facility] [address]-48 10 MG Orally Twice a day Sep 29, 2014 1 tablet as needed Cymbalta [facility] [address]-85 60 MG Orally Twice a day 1 capsule Oxycodone HCl [facility] [address]-36 10 MG Orally 3 times a day December 01, 2012 1 tablet as needed Fentanyl [facility] [address]-43 100 MCG/HR Transdermal every 72 hrs December 01, 2012 1 patch to skin Results No Known Results Summary Purpose eClinicalWorks Submission
--- OUTSIDE RECORDS SUMMARY | 2016-11-23 06:52 | XMS REPORT ---
Author Author Gino Godfrey [facility] eClinicalWorks Address Unknown Phone Unavailable Care Team Providers Care Education Program Associate Name Role Phone Gino Godfrey CP [...] Instructions Start Date End Date Status Dosage Ptaiqutktl-QOSF-Xbuslilb [facility] [id number] 50-325-40 Orally QD, as needed 1 tablet Results No Known Results Summary Purpose AFreezeinicalWorks Submission
--- OUTSIDE RECORDS SUMMARY | 2016-11-23 06:52 | XMS REPORT ---
Author Author Gino Godfrey [facility] eClinicalWorks Address Unknown Phone Unavailable Care Team Providers Care Miner Pick Name Role Phone Gino Godfrey CP Unavailable [...]
--- OUTSIDE RECORDS SUMMARY | 2016-11-23 06:52 | XMS REPORT ---
Author Author Gino Godfrey [facility] eClinicalWorks Address Unknown Phone Unavailable Care Team Providers Care Paratransit Driver Name Role Phone Gino Godfrey Unavailable Allergies [...] Instructions Start Date End Date Status Dosage Exhiinknfr-YMYW-Eowzxqzq [facility] 90174670805 50-325-40 Orally TID, try to take less 1 TABLET Results No Known Results Summary Purpose eClinicalWorks Submission
--- OUTSIDE RECORDS SUMMARY | 2016-11-23 06:52 | XMS REPORT ---
Author Author Gino Godfrey [facility] Address [address] [place] [address] Care Team Providers Care Inspector Subassembly Name Role Phone Gino Godfrey Unavailable [phone] PROBLEMS Type Condition ICD9-CM Code [id number] Code Onset Dates Condition Status SNOMED Code Problem Panic attack F41.0 Active 468661101 Problem Unspecified asthma, uncomplicated J45.909 Active 83968041 Problem Acute cystitis without hematuria N30.00 Active 85265212 Problem Chronic low back pain M54.5 Active 630756388 Problem Urinary retention R33.9 Active 271060575 Problem Depression, uncontrolled F32.9 Active 08327565 Problem Hypothyroidism, unspecified E03.9 Active 87884852 Problem Chronic radicular lumbar pain M54.16 Active 440070790 ALLERGIES Unknown Allergies SOCIAL HISTORY No smoking Hx information available PLAN OF CARE VITAL SIGNS MEDICATIONS Unknown Medications RESULTS No Results PROCEDURES No Known procedures IMMUNIZATIONS No Known Immunizations
--- OUTSIDE RECORDS SUMMARY | 2016-11-23 06:52 | XMS REPORT ---
Author Author Gino Godfrey [facility] eClinicalWorks Address Unknown Phone Unavailable Care Team Providers Care Computational Theory Scientist Name Role Phone Gino Godfrey Unavailable Allergies, Adverse Reactions, Alerts Substance Reaction Event Type Morphine Sulfate Info Not Available Drug Allergy Medrol (Edgard) Info Not Available Drug Allergy Bactrim Info Not Available Drug Allergy Aleve Info Not Available Drug Allergy Problems Problem Type Condition ICD-9 Code Onset Dates Condition Status Assessment Chronic lumbar radiculopathy 724.4 Active Assessment Low back pain 724.2 Active Problem Depression 311 Active Problem Urinary retention 788.20 Active Problem Panic attacks 300.01 Active Problem Chronic lumbar radiculopathy 724.4 Active Assessment Bronchitis 490 Active Problem Low back pain 724.2 Active Problem Hypothyroidism 244.9 Active Medications Medication Code System Code Instructions Start Date End Date Status Dosage Fentanyl [facility] [address]-24 100 MCG/HR Transdermal every 72 hrs December 01, 2012 Active 1 patch to skin Venlafaxine HCl ER [facility] 92128841078 75 Active TAKE THREE CAPSULES BY MOUTH DAILY WITH FOOD Gabapentin [facility] [address]-80 400 MG Orally Three times a day October 19, 2012 Active 1 capsule Jdxohsoyha-IFBE-Tezjlkzy [facility] [address]-41 50-325-40 MG Orally TID, PER DR. GODFREY, MAX 3/DAY Active 1 TABLET Promethazine HCl [facility] 29075074235 25 Active TAKE ONE TABLET BY MOUTH EVERY 4 HOURS NEEDED AND AT BEDTIME Promethazine VC/Codeine [facility] [address]-17 6.25-5-10 MG/5ML Orally every 6 hrs Aug 19, 2014 Active 1-2 TEASPOON Oxycodone HCl [facility] [address]-72 10 MG Orally 5 times a day December 01, 2012 Active 1 tablet as needed Flexeril [facility] [address]-52 10 MG Orally Three times a day Active take 1 tablet Phenergan [facility] [address]-84 25 mg Rectal 1 EVERY 6 HRS May 17, 2014 Active as directed Ceftin [facility] [address]-60 500 MG Orally Twice a day Sep 02, 2014 Active as directed Fioricet [facility] 81363727763 50325-40 Active TAKE ONE TABLET BY MOUTH THREE TIMES A DAY NEEDED Procedures Procedure Coding System Code Date OFFICE VISITEST PT CPT-4 [id number] Sep 02, 2014 Vital Signs Date/Time: Sep 02, 2014 Blood Pressure Systolic 108 mm Hg Height 5 ft 6 in in Weight 132.3 lbs BMI 21.35 Index Blood Pressure Diastolic 74 mm Hg Results No Known Results Summary Purpose eClinicalWorks Submission
--- OUTSIDE RECORDS SUMMARY | 2016-11-23 06:52 | XMS REPORT ---
Author Author Gino Godfrey [facility] eClinicalWorks Address Unknown Phone Unavailable Care Team Providers Care Government Program Manager Name Role Phone Gino Godfrey Unavailable Allergies No Known Allergies Problems Problem Type Condition ICD-9 Code Onset Dates Condition Status Problem Depression 311 Active Problem Urinary retention 788.20 Active Problem Panic attacks 300.01 Active Problem Chronic lumbar radiculopathy 724.4 Active Problem Low back pain 724.2 Active Problem Hypothyroidism 244.9 Active Medications Medication Code System Code Instructions Start Date End Date Status Dosage Dpfysbmeeg-JDBK-Jusbvgqf [facility] [address]-89 50-325-40 MG Orally TID, PER DR. GODFREY, MAX 3/DAY 1 TABLET Results No Known Results Summary Purpose eClinicalWorks Submission
--- OUTSIDE RECORDS SUMMARY | 2016-11-23 06:52 | XMS REPORT ---
Author Author Gnio Godfrey [facility] eClinicalWorks Address Unknown Phone Unavailable Care Team Providers Care Printing Plate Clerk Name Role Phone Gino Godfrey CP [...]
--- OUTSIDE RECORDS SUMMARY | 2016-11-23 06:52 | XMS REPORT ---
Author Author Gino Godfrey [facility] eClinicalWorks Address Unknown Phone Unavailable Care Team Providers Care Jackscrew Worker Name Role Phone Gino Godfrey CP [...]
--- OUTSIDE RECORDS SUMMARY | 2016-11-23 06:52 | XMS REPORT ---
Author Author Gino Godfrey [facility] eClinicalWorks Address Unknown Phone Unavailable Care Team Providers Care Carnival Worker Name Role Phone Gino Godfrey CP [...]
--- OUTSIDE RECORDS SUMMARY | 2016-11-23 06:52 | XMS REPORT ---
Author Author Gino Godfrey [facility] eClinicalWorks Address Unknown Phone Unavailable Care Team Providers Care Financial Dealers Name Role Phone Gino Godfrey CP Unavailable [...] Instructions Start Date End Date Status Dosage Promethazine-Codeine [facility] 25163019414 6.25-10 TAKE ONE TEASPOONFUL BY MOUTH EVERY FOUR TO SIX HOURS NEEDED FOR COUGH Results No Known Results Summary Purpose eClinicalWorks Submission
--- OUTSIDE RECORDS SUMMARY | 2016-11-23 06:52 | XMS REPORT ---
Author Author Gino Godfrey [facility] Address [address] [place] [address] Care Team Providers Care Vault Keeper Name Role Phone Gino Godfrey Unavailable [phone] PROBLEMS Type Condition ICD9-CM Code NVV91-EL Code Onset Dates Condition Status SNOMED Code Problem Panic attack F41.0 Active 778218181 Problem Urinary retention R33.9 Active 711753222 Problem Depression, uncontrolled F32.9 Active 52909802 Problem Unspecified asthma, uncomplicated J45.909 Active 03151701 Problem Diverticulitis of large intestine without perforation or abscess with bleeding K57.33 Active 6507528 Problem Cystitis with hematuria N30.91 Active 62100374 Problem Hypothyroidism, unspecified E03.9 Active 76767264 Problem Chronic radicular lumbar pain M54.16 Active 128922437 Problem Acute cystitis without hematuria N30.00 Active 28156581 Problem Chronic low back pain M54.5 Active 282111733 ALLERGIES Unknown Allergies SOCIAL HISTORY No smoking Hx information available PLAN OF CARE VITAL SIGNS MEDICATIONS Medication Instructions Dosage Frequency Start Date End Date Duration Status Njhbcjfpem-VLAZ-Essdiuiy 50-325-40 Orally daily, as needed 1-2 TABLET 14 Active RESULTS No Results PROCEDURES No Known procedures IMMUNIZATIONS No Known Immunizations
--- OUTSIDE RECORDS SUMMARY | 2016-11-23 06:52 | XMS REPORT ---
Author Author Gino Godfrey [facility] eClinicalWorks Address Unknown Phone Unavailable Care Team Providers Care Stonecutter Assistant Name Role Phone Gino Godfrey CP [...]
--- OUTSIDE RECORDS SUMMARY | 2016-11-23 06:52 | XMS REPORT ---
Author Author Gino Godfrey [facility] eClinicalWorks Address Unknown Phone Unavailable Care Team Providers Care Lock Fitter Name Role Phone Gino Godfrey CP Unavailable [...]
--- NOTE | 2016-11-23 06:53 | NUR ---
RETURNED FROM CT PER EMS CART TO TB.
--- OUTSIDE RECORDS SUMMARY | 2016-11-23 06:53 | XMS REPORT ---
Author Author Gino Godfrey [facility] eClinicalWorks Address Unknown Phone Unavailable Care Team Providers Care Pipe Stem Repairer Name Role Phone Gino Godfrey CP Unavailable [...] Instructions Start Date End Date Status Dosage Fhoczwjynq-WZYZ-Lzfmxqwg [facility] [address]-20 50-325-40 MG Orally TID, PER DR. GODFREY, MAX 3/DAY Active 1 TABLET Results No Known Results Summary Purpose eClinicalWorks Submission
--- OUTSIDE RECORDS SUMMARY | 2016-11-23 06:53 | XMS REPORT ---
Author Author Gino Godfrey [facility] eClinicalWorks Address Unknown Phone Unavailable Care Team Providers Care Lithographing Machine Operator Name Role Phone Gino Godfrey [...]
--- OUTSIDE RECORDS SUMMARY | 2016-11-23 06:53 | XMS REPORT ---
Author Author Gino Godfrey [facility] eClinicalWorks Address Unknown Phone Unavailable Care Team Providers Care Laundry Pricing Clerk Name Role Phone Gino Godfrey Unavailable Allergies No Known Allergies Problems Problem Type Condition ICD-9 Code Onset Dates Condition Status Problem Depression 311 Active Problem Urinary retention 788.20 Active Problem Panic attacks 300.01 Active Problem Chronic lumbar radiculopathy 724.4 Active Problem Low back pain 724.2 Active Problem Hypothyroidism 244.9 Active Medications Medication Code System Code Instructions Start Date End Date Status Dosage Zkcxbysbzz-KFYI-Yrifcxdo [facility] [address]-63 50-325-40 MG Orally TID, PER DR. GODFREY, MAX 3/DAY 1 TABLET Results No Known Results Summary Purpose eClinicalWorks Submission
--- OUTSIDE RECORDS SUMMARY | 2016-11-23 06:53 | XMS REPORT ---
Author Author Gino Godfrey [facility] eClinicalWorks Address Unknown Phone Unavailable Care Team Providers Care Power Brake Operator Name Role Phone Gino Godfrey Unavailable Allergies [...] Instructions Start Date End Date Status Dosage Fhfjvjcxha-RKTN-Pynkufrx [facility] 24035090487 50-325-40 Orally Q D 1 tablet Results No Known Results Summary Purpose eClinicalWorks Submission
--- OUTSIDE RECORDS SUMMARY | 2016-11-23 06:53 | XMS REPORT ---
Author Author Gino Godfrey [facility] eClinicalWorks Address Unknown Phone Unavailable Care Team Providers Care Fisheries Inspector Name Role Phone Gino Godfrey Unavailable Allergies [...] Instructions Start Date End Date Status Dosage Ciecrpfxvz-VLRQ-Frgsswqc [facility] 44109840501 50-325-40 Orally TID, try to take less 1 TABLET Results No Known Results Summary Purpose eClinicalWorks Submission
--- OUTSIDE RECORDS SUMMARY | 2016-11-23 06:53 | XMS REPORT ---
Author Author Gino Godfrey [facility] eClinicalWorks Address Unknown Phone Unavailable Care Team Providers Care Seamer Panty Hose Name Role Phone Gino Godfrey CP Unavailable [...]
--- OUTSIDE RECORDS SUMMARY | 2016-11-23 06:53 | XMS REPORT ---
Author Author Gino Godfrey [facility] eClinicalWorks Address Unknown Phone Unavailable Care Team Providers Care Missile Facilities Repairer Name Role Phone Gino Godfrey Unavailable Allergies [...] Date End Date Status Dosage Promethazine HCl [facility] [address]-75 25 MG Orally every 6 hrs 1 TABLET Cymbalta [facility] [address]-85 60 MG Orally Twice a day 1 capsule Results No Known Results Summary Purpose eClinicalWorks Submission
--- OUTSIDE RECORDS SUMMARY | 2016-11-23 06:53 | XMS REPORT ---
Author Author Gino Godfrey [facility] eClinicalWorks Address Unknown Phone Unavailable Care Team Providers Care Dietary Aid Name Role Phone Gino Godfrey Unavailable Allergies [...] Instructions Start Date End Date Status Dosage Zaazpdeilt-OJKH-Xhbafffm [facility] 84273441436 50-325-40 Orally TID, try to take less 1 TABLET Results No Known Results Summary Purpose eClinicalWorks Submission
--- OUTSIDE RECORDS SUMMARY | 2016-11-23 06:53 | XMS REPORT ---
Author Author Gino Godfrey [facility] eClinicalWorks Address Unknown Phone Unavailable Care Team Providers Care Kennel Hand Name Role Phone Gino Godfrey CP Unavailable [...]
--- OUTSIDE RECORDS SUMMARY | 2016-11-23 06:53 | XMS REPORT ---
Author Author Gino Godfrey [facility] eClinicalWorks Address Unknown Phone Unavailable Care Team Providers Care Motorcycle Tester Name Role Phone Gino Godfrey Unavailable Allergies [...] End Date Status Dosage Promethazine HCl [facility] [address]-36 25 MG Rectal q 6 hrs 1 tablet Wynpzgpaqh-ODSX-Vnzmrzch [facility] 89490443919 50-325-40 Orally QD, as needed 1 tablet Fentanyl [facility] [address]-78 100 MCG/HR Transdermal every 72 hrs December 01, 2012 1 patch to skin Oxycodone HCl [facility] [address]-83 10 MG Orally 3 times a day, with occasional 1 tablet daily, max of 4/day. 90 tabs to last 28 days December 01, 2012 1 tablet Diazepam [facility] [address]-61 10 MG Orally TID Sep 29, 2014 1 tablet as needed Results No Known Results Summary Purpose eClinicalWorks Submission
--- OUTSIDE RECORDS SUMMARY | 2016-11-23 06:53 | XMS REPORT ---
Author Author Gino Godfrey [facility] eClinicalWorks Address Unknown Phone Unavailable Care Team Providers Care General Manager Road Production Name Role Phone Gino Godfrey CP Unavailable [...]
--- OUTSIDE RECORDS SUMMARY | 2016-11-23 06:53 | XMS REPORT ---
Author Author Gino Godfrey [facility] eClinicalWorks Address Unknown Phone Unavailable Care Team Providers Care Chancery Clerk Name Role Phone Gino oGdfrey Unavailable Allergies, Adverse Reactions, Alerts Substance Reaction [...] Start Date End Date Status Dosage Fioricet [facility] 03586137400 50-325-40 Orally TID Active 1 TABLET Gabapentin [facility] [address]-39 400 MG Orally Three times a day October 19, 2012 Active 1 capsule Flexeril [facility] [address]-51 10 MG Orally Three times a day Active take 1 tablet Oxycodone HCl [facility] [address]-47 10 MG Orally 5 times a day December 01, 2012 Active 1 tablet as needed Macrobid [facility] [address]-66 100 MG Orally every 12 hrs Aug 08, 2014 Active as directed Promethazine HCl [facility] [address]-50 25 MG Orally EVERY 4 HRS and at h.s. Active 1 TABLET Venlafaxine HCl ER [facility] 15630659919 75 Active TAKE THREE CAPSULES BY MOUTH DAILY WITH FOOD Phenergan [facility] [address]-31 25 mg Rectal 1 EVERY 6 HRS May 17, 2014 Active as directed Fentanyl [facility] [address]-07 100 MCG/HR Transdermal every 72 hrs December 01, 2012 Active 1 patch to skin Iyxcedptka-KWBG-Gyydusit [facility] [address]-23 50-325-40 MG Orally TID, PER DR. GODFREY, MAX 3/DAY Active 1 TABLET Procedures Procedure Coding System Code Date OFFICE VISITEST PT CPT-4 47031 Aug 08, 2014 Vital Signs Date/Time: Aug 08, 2014 Blood Pressure Systolic 118 mm Hg Height 5 ft 6 in in Weight 134.2 lbs BMI 21.66 Index Blood Pressure Diastolic 74 mm Hg Results No Known Results Summary Purpose eClinicalWorks Submission
--- OUTSIDE RECORDS SUMMARY | 2016-11-23 06:53 | XMS REPORT ---
Author Author Gino Godfrey [facility] eClinicalWorks Address Unknown Phone Unavailable Care Team Providers Care Greenstone Polisher Operator Name Role Phone Gino Godfrey CP [...]
--- OUTSIDE RECORDS SUMMARY | 2016-11-23 06:53 | XMS REPORT ---
Author Author Gino Godfrey [facility] eClinicalWorks Address Unknown Phone Unavailable Care Team Providers Care Rubber Mixer Name Role Phone Gino Godfrey CP Unavailable [...] Start Date End Date Status Dosage Macrobid [facility] [address]-13 100 MG Orally take 1 capsule by mouth twice a day Jul 03, 2015 as directed Results No Known Results Summary Purpose eClinicalWorks Submission
--- OUTSIDE RECORDS SUMMARY | 2016-11-23 06:53 | XMS REPORT ---
Author Author Gino Godfrey [facility] eClinicalWorks Address Unknown Phone Unavailable Care Team Providers Care Nude Model Name Role Phone Gino Godfrey CP Unavailable [...]
--- OUTSIDE RECORDS SUMMARY | 2016-11-23 06:53 | XMS REPORT ---
Author Author Gino Godfrey [facility] eClinicalWorks Address Unknown Phone Unavailable Care Team Providers Care Blast Hole Driller Name Role Phone Gino Godfrey CP Unavailable [...]
--- OUTSIDE RECORDS SUMMARY | 2016-11-23 06:53 | XMS REPORT ---
Author Author Gino Godfrey [facility] eClinicalWorks Address Unknown Phone Unavailable Care Team Providers Care Coremaker Machine Name Role Phone Gino Godfrey Unavailable Allergies No Known Allergies Problems Problem Type Condition ICD-9 Code Onset Dates Condition Status Problem Depression 311 Active Problem Urinary retention 788.20 Active Problem Panic attacks 300.01 Active Problem Chronic lumbar radiculopathy 724.4 Active Problem Low back pain 724.2 Active Problem Hypothyroidism 244.9 Active Medications Medication Code System Code Instructions Start Date End Date Status Dosage Cqnmshszla-HDNK-Eggmticv [facility] 19967527737 50-325-40 Orally TID, as needed, MOS OF 3 PER DAY, TRY TO TAKE LESS 1 TABLET Results No Known Results Summary Purpose eClinicalWorks Submission
--- OUTSIDE RECORDS SUMMARY | 2016-11-23 06:53 | XMS REPORT ---
Author Author Gino Godfrey [facility] eClinicalWorks Address Unknown Phone Unavailable Care Team Providers Care Wireless Sales Manager Name Role Phone Gino Godfrey CP Unavailable Allergies No Known Allergies Problems Problem Type Condition Code Onset Dates Condition Status Assessment Low back pain 724.2 Active Problem Hypothyroidism, unspecified E03.9 Active Problem Chronic radicular lumbar pain M54.16 Active Problem Chronic low back pain M54.5 Active Problem Panic attack F41.0 Active Problem Unspecified asthma, uncomplicated J45.909 Active Problem Urinary retention R33.9 Active Problem Depression, uncontrolled F32.9 Active Medications No Known Medications Results No Known Results Summary Purpose eClinicalWorks Submission
--- OUTSIDE RECORDS SUMMARY | 2016-11-23 06:53 | XMS REPORT ---
Author Author Gino Godfrey [facility] eClinicalWorks Address Unknown Phone Unavailable Care Team Providers Care Audio Visual Collections Coordinator Name Role Phone Gino Godfrey CP Unavailable [...]
--- OUTSIDE RECORDS SUMMARY | 2016-11-23 06:53 | XMS REPORT ---
Author Author Gino Godfrey [facility] eClinicalWorks Address Unknown Phone Unavailable Care Team Providers Care Automatic Beading Lathe Operator Name Role Phone Gino Godfrey CP [...]
--- OUTSIDE RECORDS SUMMARY | 2016-11-23 06:53 | XMS REPORT ---
Author Author Gino Godfrey [facility] eClinicalWorks Address Unknown Phone Unavailable Care Team Providers Care Palliative Care Nurse Practitioner Name Role Phone Gino Godfrey CP Unavailable Allergies No Known Allergies Problems Problem Type Condition Code Onset Dates Condition Status Assessment Dehydration E86.0 Active Problem Unspecified asthma, uncomplicated J45.909 Active Assessment UTI (urinary tract infection) N39.0 Active Problem Chronic low back pain M54.5 Active Problem Hypothyroidism, unspecified E03.9 Active Problem Acute cystitis without hematuria N30.00 Active Problem Depression, uncontrolled F32.9 Active Problem Panic attack F41.0 Active Problem Chronic radicular lumbar pain M54.16 Active Problem Urinary retention R33.9 Active Assessment Azotemia R79.89 Active Assessment Renal insufficiency N28.9 Active Assessment Abdominal pain R10.9 Active Medications No Known Medications Procedures Procedure Coding System Code Date COMP PROFILE CPT-4 23502 November 24, 2015 Demerol 25-50mg CPT-4 J2175 November 24, 2015 CBC CPT-4 21803 November 24, 2015 Phenergan 50mg CPT-4 J2550 November 24, 2015 Administration Fee /THER/PROPH/DIAG INJ, SC/IM CPT-4 34289 November 24, 2015 OFFICE VISITEST PT CPT-4 57055 November 24, 2015 Results Name Result Date Reference Range Unit Abnormality Flag CBC ----MCV 86.2 [id number] 81.0-96.0 FL ----HCT 38.1 [id number] 36.0-46.0 % ----MCHC 32.0 [id number] 32.0-35.0 G/DL ----MCH 27.6 [id number] 27.0-33.0 PG ----EO# 0.1 [id number] 0.0-0.2 X10^3/UL ----PLT 190 [id number] 130-400 X10^3 ----EO% 0.9 [id number] 0.0-3.0 % ----RDW 12.0 [id number] 11.5-15.5 % ----MO# 0.7 [id number] 0.1-0.6 X10^3/UL H ----MO% 9.8 [id number] 1.7-9.3 % H ----LY# 1.7 [id number] 1.2-3.4 X10^3/UL ----BA# 0.0 [id number] 0.0-0.1 X10^3/UL ----BA% 0.1 [id number] 0.0-1.0 % ----HGB 12.2 [id number] 11.6-16.0 G/DL ----RBC 4.42 [id number] 3.90-5.20 X10^6 ----MPV 10.8 [id number] 8.9-12.7 FL ----WBC 6.7 [id number] 4.0-10.0 X10^3/UL ----NE% 63.5 [id number] 42.2-75.2 % ----NE# 4.3 [id number] 1.4-6.5 X10^3/UL ----LY% 25.6 [id number] 20.5-51.1 % COMPREHENSIVE CHEM PROFILE ----SODIUM 141 [id number] 133-145 MMOL/L ----TOTAL BILI 0.55 [id number] 0.00-1.00 MG/DL ----CHLORIDE 99 [id number] 96-108 MMOL/L ----POTASSIUM 3.1 [id number] 3.3-5.1 MMOL/L L ----CALCIUM 9.1 [id number] 8.7-10.3 MG/DL ----AST/SGOT 31 [id number] 5-40 U/L ----CO2 24 [id number] 23-31 MMOL/L ----TOTAL PROTEIN 7.2 [id number] 5.9-8.4 G/DL ----eGFR If Am 26 [id number] >60 ml/min/1.73m^2 L ----ALBUMIN 4.2 [id number] 3.2-5.2 G/DL ----eGFR If Non Am 21 [id number] >60 ml/min/1.73m^2 L ----BUN 18 [id number] 6-20 MG/DL ----ALT/SGPT 12 [id number] 5-40 U/L ----ALK PHOS 92 [id number] 34-114 U/L ----CREATININE 2.5 [id number] 0.4-1.1 MG/DL H ----GLUCOSE 133 [id number] 60-99 MG/DL H ----GLOBULIN 3.0 [id number] 2.0-4.4 G/DL Summary Purpose eClinicalWorks Submission
--- OUTSIDE RECORDS SUMMARY | 2016-11-23 06:53 | XMS REPORT ---
Author Author Gino Godfrey [facility] eClinicalWorks Address Unknown Phone Unavailable Care Team Providers Care Torch Heater Name Role Phone Gino Godfrey CP Unavailable [...] Start Date End Date Status Dosage Promethazine-Codeine [facility] [address]-15 6.25-10 MG/5ML Orally every 4-6 hrs Jul 31, 2015 1-2 tsp Results No Known Results Summary Purpose eClinicalWorks Submission
--- OUTSIDE RECORDS SUMMARY | 2016-11-23 06:53 | XMS REPORT ---
Author Author Gino Godfrey [facility] eClinicalWorks Address Unknown Phone Unavailable Care Team Providers Care Curtain Stretcher Assembler Name Role Phone Gino Godfrey Unavailable Allergies, Adverse Reactions, Alerts Substance Reaction Event Type Morphine Sulfate Info Not Available Drug Allergy Medrol (Edgard) Info Not Available Drug Allergy Bactrim Info Not Available Drug Allergy Aleve Info Not Available Drug Allergy Problems Problem Type Condition ICD-9 Code Onset Dates Condition Status Assessment Vaginal bleeding 623.8 Active Assessment Depression 311 Active Assessment Panic attacks 300.01 Active Problem Depression 311 Active Problem Urinary retention 788.20 Active Problem Panic attacks 300.01 Active Problem Chronic lumbar radiculopathy 724.4 Active Assessment Low back pain 724.2 Active Problem Low back pain 724.2 Active Problem Hypothyroidism 244.9 Active Medications Medication Code System Code Instructions Start Date End Date Status Dosage Oxycodone HCl [facility] [address]-19 10 MG Orally 3 times a day December 01, 2012 1 tablet as needed Diazepam [facility] [address]-34 10 MG Orally TID Sep 29, 2014 1 tablet as needed Gabapentin [facility] [address]-35 400 MG Orally Three times a day October 19, 2012 1 capsule Cymbalta [facility] [address]-01 60 MG Orally Twice a day 1 capsule Acyclovir [facility] 87582366031 800 TAKE 1 TABLET BY MOUTH 5 TIMES DAILY FOR 7 DAYS Nfwdslsevt-IWSL-Grrapikz [facility] 24979030025 50-325-40 Orally Q D 1 tablet Fentanyl [facility] [address]-77 100 MCG/HR Transdermal every 72 hrs December 01, 2012 1 patch to skin Promethazine HCl [facility] [address]-56 25 MG Orally every 4 hrs, and at bedtime 1 tablet as needed Procedures Procedure Coding System Code Date OFFICE VISITEST PT CPT-4 92591 March 10, 2015 Vital Signs Date/Time: March 10, 2015 Blood Pressure Systolic 113 mm Hg Height 5 ft 6 in in Weight 126.1 lbs BMI 20.35 Index Blood Pressure Diastolic 83 mm Hg Results No Known Results Summary Purpose eClinicalWorks Submission
--- OUTSIDE RECORDS SUMMARY | 2016-11-23 06:54 | XMS REPORT ---
Author Author Gino Godfrey [facility] eClinicalWorks Address Unknown Phone Unavailable Care Team Providers Care Hoop Bending Machine Operator Name Role Phone Gino Godfrey Unavailable Allergies, Adverse Reactions, Alerts Substance Reaction Event Type Morphine Sulfate Info Not Available Drug Allergy Medrol (Edgard) Info Not Available Drug Allergy Bactrim Info Not Available Drug Allergy Aleve Info Not Available Drug Allergy Problems Problem Type Condition ICD-9 Code Onset Dates Condition Status Assessment Low back pain 724.2 Active Problem Depression 311 Active Problem Urinary retention 788.20 Active Problem Panic attacks 300.01 Active Problem Chronic lumbar radiculopathy 724.4 Active Assessment UTI (lower urinary tract infection) 599.0 Active Problem Low back pain 724.2 Active Problem Hypothyroidism 244.9 Active Medications Medication Code System Code Instructions Start Date End Date Status Dosage Venlafaxine HCl ER [facility] [address]-07 75 MG Orally Once a day Mar 11, 2014 Active 3 tablet with food Gabapentin [facility] [address]-29 400 MG Orally Three times a day October 19, 2012 Active 1 capsule Promethazine HCl [facility] 46370179409 25 Active TAKE ONE TABLET BY MOUTH EVERY 4 HOURS AND AT BEDTIME Phenergan [facility] [address]-17 25 mg Rectal 1 EVERY 6 HRS May 17, 2014 Active as directed Flexeril [facility] [address]-77 10 MG Orally Three times a day Active take 1 tablet Oxycodone HCl [facility] [address]-35 10 MG Orally 5 times a day December 01, 2012 Active 1 tablet as needed Slvqwpikib-GJAW-Yplvadij [facility] [address]-62 50-325-40 MG Orally TID, PER DR. GODFREY, MAX 3/DAY Active 1 TABLET Keflex [facility] [address]-34 500 MG Orally TID Jun 13, 2014 Active as directed Fioricet [facility] 50710465017 50-325-40 Orally TID Active 1 TABLET Fentanyl [facility] [address]-14 100 MCG/HR Transdermal every 72 hrs December 01, 2012 Active 1 patch to skin Procedures Procedure Coding System Code Date OFFICE VISITEST PT CPT-4 39389 Jun 13, 2014 Vital Signs Date/Time: Jun 13, 2014 Blood Pressure Systolic 127 mm Hg Height 5 ft 6 in in Weight 133.2 lbs BMI 21.50 Index Cardiac Monitoring Heart Rate 98 /min Blood Pressure Diastolic 89 mm Hg Results No Known Results Summary Purpose eClinicalWorks Submission
--- NOTE | 2016-11-23 06:55 | NUR ---
VS FIRST SET OF VS OBTAINED AFTER RETURN FROM CT
--- NOTE | 2016-11-23 06:57 | NUR ---
FENTANYL PATCH FOUND ON PT & REMOVED
--- NOTE | 2016-11-23 06:58 | NUR ---
RESPONSIVE WITH INTENSE CALLING OF HER NAME, PT DID OPEN HER EYES & TURN HER FACE TOWARD VOICE
[2016-11-23 07:00] LABS: BASOPHILS % (AUTO) 0.1 % (0-2); EOSINOPHILS # (AUTO) 0.1 T/MM3 (0-0.5); EOSINOPHILS % (AUTO) 0.9 % (0-4); HGB - HEMOGLOBIN 13.9 GM/DL (12-16); IMMATURE GRANULOCYTE # (AUTO) 0.01 T/MM3 (0.00-0.03); IMMATURE GRANULOCYTE % (AUTO) 0.1 % (0.0-0.5); LYMPHOCYTES # (AUTO) 1.7 T/MM3 (1-4.8); LYMPHOCYTES % (AUTO) 25.3 % (23-45); MEAN CORPUSCULAR HGB 28.4 UUG (26-34); MEAN CORPUSCULAR HGB CONC(MCHC 33.1 GM/DL (31-37); MEAN CORPUSCULAR VOLUME 85.9 UM3 (80-100); MEAN PLATELET VOLUME 10.6 UM3 (9.4-12.4); MONOCYTES # (AUTO) 0.3 T/MM3 (0-0.8); MONOCYTES % (AUTO) 4.9 % (0-9.0); NEUTROPHILS #(AUTO)-ABSOLUTE 4.6 T/MM3 (1.8-7.7); NEUTROPHILS % (AUTO) 68.7 % (33-66); RED BLOOD COUNT 4.89 M/MM3 (4.00-5.20); WBC - WHITE BLOOD COUNT 6.7 T/MM3 (4.5-11.0)
[2016-11-23] MEDS ORDERED: NALOXONE 0.4mg/ml INJECTION IV ONE (07:00)
--- NOTE | 2016-11-23 07:00 | NUR ---
LAB HERE DRAWN ADDITIONAL LABS & OBTAINED UDS & UA FROM CATHETER
--- NOTE | 2016-11-23 07:00 | NUR ---
NEUROLOGIST PER COMPUTER IS ASSESSING PT.
--- NOTE | 2016-11-23 07:00 | NUR ---
NIH PT IS OBTUNDED & NIH CANNOT BE COMPLETED
--- NOTE | 2016-11-23 07:00 | NUR ---
NARCAN ADMINISTERED. IVF STARTED
--- NOTE | 2016-11-23 07:02 | NUR ---
RESPONSE PT HAS STARTED MOVING HER LEGS & HEAD. EYES ARE DILATED EQUALLY. NO VERBAL RESPONSE OR FOLLOWING OF COMMANDS.
[2016-11-23 07:06] LABS: ALBUMIN 4.6 G/DL (3.5-5.0); ALBUMIN/GLOBULIN RATIO 1.4 RATIO (1.1-2.2); ALKALINE PHOSPHATASE 89 U/L (38-126); ALT (SGPT) 32 U/L (9-52); ANION GAP 17 MEQ/L (5-15); AST (SGOT) 42 U/L (14-36); BUN/CREATININE RATIO 23 RATIO (6-26); CALCIUM 9.3 MG/DL (8.4-10.2); CHLORIDE 102 MEQ/L (98-107); CO2 - CARBON DIOXIDE 29 MEQ/L (22-30); CREATININE 0.6 MG/DL (0.7-1.2); GLOMERULAR FILTRATION RATE 110; GLUCOSE 152 MG/DL (65-110); POTASSIUM 3.1 MEQ/L (3.6-5); SODIUM 148 MEQ/L (134-144)
[2016-11-23 07:14] LABS: INR 1.09 (0.76-1.04); PROTHROMBIN TIME 11.9 SEC (9.31-12.49); PTT 31.9 SEC (24-36)
[2016-11-23 07:27] LABS: BLOOD, URINE NEGATIVE (NEGATIVE); COLOR,URINE YELLOW (YELLOW); LEUKOCYTE ESTERASE ,URINE 1+ (NEGATIVE); NITRITE,URINE NEGATIVE (NEGATIVE); UROBILINOGEN,URINE 0.2 EU/DL (NORMAL)
[2016-11-23 07:28] LABS: BACTERIA,URINE NONE SEEN (NEGATIVE); RBC,URINE NONE SEEN /HPF (0-3); YEAST,URINE TRACE (NEGATIVE)
[2016-11-23 07:29] LABS: AMPHETAMINE SCREEN,URINE NEGATIVE; BARBITURATE SCREEN,URINE POSITIVE; BENZODIAZEPINES SCREEN,URINE POSITIVE; CANNABINOID SCREEN,URINE NEGATIVE; COCAINE SCREEN,URINE NEGATIVE; METHADONE SCREEN, URINE NEGATIVE; METHAMPHETAMINE SCREEN, URINE NEGATIVE; OPIATE SCREEN,URINE NEGATIVE; PHENCYCLIDINE SCREEN,URINE NEGATIVE; TRICYCLIC ANTIDEPRESSANT,URINE NEGATIVE
--- NOTE | 2016-11-23 07:57 | ERPDOC ---
Departure Disposition Decision Date: Nov 23, 2016 Disposition Decision Time: 10:09 Disposition: 02 TO [facility] Impression Impression Impression: Primary Impression: Altered mental status, unspecified Severity: Moderate Condition: Stable Seen By: Physician only Problems/Meds/Labs Reviewed?: Yes Medications reviewed and manag: Yes Follow up care ordered?: Yes HPI - CVA/Neuro General Chief Complaint: Altered Mental Status Stated Complaint: UNRESPONSIVE Time Seen by Provider: 06:46 HPI - CVA/NEURO Initial Comments 41-year-old female, living in a assisted, was found down at approximately 05 100 this morning. Last known interaction with any normality was approximately 12:00 last night when she was given her OxyContin. She also has a Dilaudid patch 100 g that she uses for chronic pain due to Crohn's. Patient has a history of anorexia. Report is fixed and dilated pupils, nonresponsive. Allergies: Coded Allergies: No Known Allergies (Unverified , 11/23/16) Past History Patient Medical History Problem List Updates: Anorexia, Crohn's Social History Housing: assisted Record Review Pertinent history updated: Yes Review of Systems Unable to Obtain ROS Due to: clinical condition Comments Patient nonresponsive Physical Exam General General Nourishment: adult, thin Distress Description Nonresponsive Vitals and Pain First Documented Vital Signs Date Time Temp Pulse Resp B/P Pulse Ox O2 Delivery O2 Flow Rate FiO2 11/23/16 06:55 97.7 28 137/85 Room Air 11/23/16 07:00 84 11/23/16 07:30 100 Weight: Kilograms: 54.600 Height (feet): 5 Height (inches): 5.00 Triage Pain Scale: Normal Exams: Head: Normocephalic w/o trauma Chest/Resp: Clear all rich, with good airflow, and symmetry bilaterally CV: Regular rate and rhythm, without murmur or gallop, Pulses 2+ all extremities, capillary refill, <2 seconds all ext., no pedal edema noted Abdomen: Bowel sounds positive, non-distended, no hepatosplenomegaly, masses or bruits noted ENMT (brief) Comments Eyes, pupils are dilated, sluggishly responsive to light, spontaneous movement of eyes. Neck (brief) Neck: FOUND: trachea midline, NOT FOUND: JVD, adenopathy, carotid bruits, spasm , thyromegaly Neurologic (brief) Comments Patient has spontaneous but limited movement of all 4 limbs, did vocational horticulture instructor my fingers with either hand when asked, they were weak vocational horticulture instructor but equal. Otherwise did not follow commands. Differential Diagnoses Considering: Thrombotic CVA, Hemorrhagic CVA, Delirium, Dementia, Drug Overdose , Encephalitis, Hypo/hypercalcemia, Hypo/hyperglycemia, Hypo/hypernatremia, Hypothyroid, Hysteria, Medication Effect, Meningitis, Psychogenic, Other Progress Results/Orders Orders Procedure Category Date Status Time Oxygen Administration EDM 11/23/16 Transmitted 06:46 Iv Lock (Ed Only) EDM 11/23/16 Transmitted 06:46 Bgm (Ed) EDM 11/23/16 Transmitted 06:46 Nothing By Mouth (Ed EDM 11/23/16 Transmitted Only) 06:46 Cbc W/Auto LAB 11/23/16 Complete Diff-Reflex Manual 06:46 Cmp - Comprehensive LAB 11/23/16 Complete Metabolic 06:46 Troponin I W LAB 11/23/16 Complete Hemolysis Index 06:46 INR LAB 11/23/16 Complete 06:46 PTT LAB 11/23/16 Complete 06:46 LAB 11/23/16 Complete Qualitative, Serum 06:46 EKG EKG 11/23/16 Logged 06:46 Ct Head W/O Contrast CT 11/23/16 Taken 06:46 Nih Stroke Scale GORDON 11/23/16 In Process 06:46 Normal Saline (Normal PHA 11/23/16 Complete Saline Iv) 06:46 Elevate Hob GORDON 11/23/16 In Process 06:46 Measure Vital Signs GORDON 11/23/16 In Process 06:46 Naloxone (Narcan) PHA 11/23/16 Complete 07:00 Drug Screen LAB 11/23/16 Complete Urine-Test At [facility] 07:08 UA, LAB 11/23/16 Complete Dip&Micro(Complete) & 07:08 Normal Saline (Normal PHA 11/23/16 In Process Saline Iv) 08:30 Chest 1 View RAD 11/23/16 Taken Lab Results Laboratory Tests Test 11/23/16 06:20 11/23/16 06:55 11/23/16 07:08 White Blood Count 6.7T/MM3 Red Blood Count 4.89M/MM3 Hemoglobin 13.9GM/DL Hematocrit 42.0% Mean Corpuscular Volume 85.9UM3 Mean Corpuscular Hemoglobin 28.4UUG Mean Corpuscular Hemoglobin Concent 33.1GM/DL RDW Standard Deviation 38.5FL Platelet Count 189T/MM3 Mean Platelet Volume 10.6UM3 Immature Granulocyte % (Auto) 0.1% Neutrophils (%) (Auto) 68.7% Lymphocytes (%) (Auto) 25.3% Monocytes (%) (Auto) 4.9% Eosinophils (%) (Auto) 0.9% Basophils (%) (Auto) 0.1% Absolute Immature Granulocyte (auto 0.01T/MM3 Absolute Neutrophils (auto) 4.6T/MM3 Absolute Lymphocytes (auto) 1.7T/MM3 Absolute Monocytes (auto) 0.3T/MM3 Absolute Eosinophils (auto) 0.1T/MM3 Absolute Basophils (auto) 0.0T/MM3 Prothromb Time International Ratio 1.09 Activated Partial Thromboplast Time 31.9SEC Turbidity < 20 Sodium Level 148MEQ/L Potassium Level 3.1MEQ/L Chloride Level 102MEQ/L Carbon Dioxide Level 29MEQ/L Anion Gap 17MEQ/L Blood Urea Nitrogen 14.0MG/DL Creatinine 0.6MG/DL Glomerular Filtration Rate Calc 110 BUN/Creatinine Ratio 23RATIO Glucose Level 152MG/DL Calculated Osmolality 288MOSM/KG Calcium Level 9.3MG/DL Total Bilirubin 0.60MG/DL Icterus Index < 2 Aspartate Amino Transf (AST/SGOT) 42U/L Alanine Aminotransferase (ALT/SGPT) 32U/L Alkaline Phosphatase 89U/L Troponin I < 0.012ng/ml Total Protein 8.0G/DL Albumin 4.6G/DL Globulin 3.4G/DL Albumin/Globulin Ratio 1.4RATIO Human Chorionic Gonadotropin, Qual Negative Chemistry Specimen Hemolysis < 15 Glucometer 134mg/dL Urine Collection Type Kwan indwelling Urine Color Yellow Urine Turbidity Clear Urine pH 6.5 Urine Specific [place] 1.010 Urine Protein Negative Urine Glucose (UA) Negative Urine Ketones Negative Urine Blood Negative Urine Nitrite Negative Urine Bilirubin Negative Urine Urobilinogen 0.2EU/DL Urine Leukocyte Esterase 1+ Urine RBC None seen/HPF Urine WBC 1-3/HPF Urine Bacteria None seen Urine Yeast Trace Urine Culture Indicated Cult not indicated Urine Opiates Screen NegativeNG/ML Urine Oxycodone Screen PositiveNG/ML Urine Methadone Screen NegativeNG/ML Urine Propoxyphene Screen NegativeNG/ML Urine Barbiturates Screen PositiveNG/ML Urine Tricyclic Antidepressants NegativeNG/ML Urine Phencyclidine Screen NegativeNG/ML Urine Amphetamines Screen NegativeNG/ML Urine Methamphetamines Screen NegativeNG/ML Urine Benzodiazepines Screen PositiveNG/ML Urine Cocaine Screen NegativeNG/ML Urine Cannabinoids Screen NegativeNG/ML Urine Drug Screen Confirmation Sent out Urine Drug Screen Information Pending Medications Current ED Medications Sodium Chloride (Normal Saline IV) 1,000 ml @ 1,000 mls/hr Q1H ONCE IV Last administered on 11/23/16 06:59; Start 11/23/16 at 06:46; Stop 11/23/16 at 07:45 ; Status DC Naloxone HCl 0.4 mg 0.4 mg O ONCE IV Last administered on 11/23/16 06:59; Start 11/23/16 at 07:00; Stop 11/23/16 at 07:01; Status DC Sodium Chloride (Normal Saline IV) 1,000 ml @ 200 mls/hr Q5H ONCE IV Last administered on 11/23/16 08:34; Start 11/23/16 at 08:30; Stop 11/23/16 at 13:29 Progress Progress Patient given Narcan 0.4 mg IV, did have some improvement in symptoms. We found 100 g Duragesic patch which she is prescribed, removed it from her back.Tele- neurology was consulted, felt that this was not a treatable CVA, but may be neurologic in basis. Recommendation was that the patient be transferred to a hospital with available neurology for follow-up. We did not ever get more response than very gentle gripping of fingers and avoidance of interaction. Labs returned reasonable, CT head was negative, chest x-ray was negative. I spoke with at [facility]. As well as with neurology. Medical service will accept the patient with consult to neurology and psych as needed. Patient be transferred by EMS. We do not have the services necessary to treat this patient locally, therefore she is being transferred. There is no family to get approval for consent from as she is estranged from her mother and other family members, a neighbor's her friend and has been caring for her, but does not have DPOA. NERISSA CALLAWAY MD Nov 23, 2016 07:57
--- NOTE | 2016-11-23 08:00 | NUR ---
ASSESS PT HAS RESTLESS LEGS. CONSTANTLY GETTING THEM INTO BEDRAILS. DOES NOT SEEM TO MOVE ANY OTHER PART OF BODY
[2016-11-23] MEDS ORDERED: SENN-156 PO (08:14)
[2016-11-23] MEDS ORDERED: OXYC10TA51 PO (08:14)
[2016-11-23] MEDS ORDERED: ACET-62 PO (08:14)
[2016-11-23] MEDS ORDERED: BUTA1CAP51 PO (08:14)
[2016-11-23] MEDS ORDERED: CEPH500C2 PO (08:14)
[2016-11-23] MEDS ORDERED: LEVO75TA10 PO (08:14)
[2016-11-23] MEDS ORDERED: GABA-354 PO (08:14)
[2016-11-23] MEDS ORDERED: FENT1PAT68 TD (08:14)
[2016-11-23] MEDS ORDERED: ALBU8.5H INH (08:14)
[2016-11-23] MEDS ORDERED: ACYC400T PO (08:14)
[2016-11-23] MEDS ORDERED: LACT10SO PO (08:14)
[2016-11-23] MEDS ORDERED: PROM25TA7 PO (08:14)
[2016-11-23] MEDS ORDERED: DULO60CA46 PO (08:14)
[2016-11-23] MEDS ORDERED: BISA10SU61 RECTALLY (08:14)
[2016-11-23] MEDS ORDERED: DIAZ10TA4 PO (08:14)
[2016-11-23] MEDS ORDERED: HYDR59LO5 TOP (08:14)
--- NOTE | 2016-11-23 08:15 | NUR ---
CONTACT ALEXANDRE QUEEN [phone] CALLED TO SAY SHE IS HAND INSERTER OPERATOR FOR PT. ALEXANDRE RELATES THAT PT LIVED WITH HER FOR 4 YRS UNTIL MARCH OF 2016. SHE REPORTS PT IS ESTRANGED FROM FAMILY WHICH INCLUDES EXHUSBAND, CHILDREN & MOTHER THAT LIVE IN [facility] [place] [facility]. ALEXANDRE DOES NOT KNOW HOW TO CONTACT THOSE FAMILY MEMBERS. SHE REPORTS PT HAS LIVED OFF FRIEND AFTER FRIEND. SHE REPORTS PT HAS CHRONIC BACK PAIN WHICH SHE TAKES OXY & FENTANYL FOR. SHE SAYS HER KIDNEYS HAVE "". SHE HAS HAD POTASSIUM PROBLEMS. SHE REPORTS PT HAS HAD BACK SURGERY, THYROID REMOVED, MRSA. ALEXANDRE SAW PT LAST ON Fri11/15/16 WHEN SHE WAS AT [facility]. SHE REPORTS PT WAS MENTALLY OK BUT IN WC DUE TO FOOT DROP PROBLEMS. PT WAS IN ICU FOR 5 DAYS & THEN IN REHAB THEN MOVED TO [place] ON 11/18/16.
--- OUTSIDE RECORDS SUMMARY | 2016-11-23 08:32 | XMS REPORT | Continuity of Care Document ---
Author Author Organization Address Unknown Phone Unavailable Allergies Active Description [...] Status Pt. Type Provider Facility Loc./Unit Complaint [id number] 08/28/2016 10:03:00 2016 00:00:00 DIS Outpatient Liang BALDERAS, Susanne [facility] W.INF [id number] 08/30/2016 11:39:00 2016 16:30:00 DIS [id number] 06/21/2016 13:26:00 2015 13:26:00 CAN [id number] 09/03/2015 17:44:00 2015 23:13:00 DIS Emergency [id number] 06/11/2015 13:15:00 2014 14:36:00 DIS Emergency Secriscolleen PAULINO, [facility] W.EDW [id number] 01/05/2015 07:19:00 2014 07:19:00 DIS Outpatient Bekah BALDERAS, G[facility] W.BENSON [id number] 07/09/2014 18:04:00 2013 20:39:00 DIS Emergency Moody BALDERAS, [facility].EDW [id number] 02/01/2014 22:42:00 2013 02:47:00 DIS Emergency Juan BALDERAS, [facility] W.EDW [id number] 11/18/2013 13:59:00 2013 16:35:00 DIS Emergency Hitesh Cintron DO [facility].EDW [id number] 06/26/2013 17:07:00 2012 21:47:00 DIS Emergency [id number] 02/05/2013 14:07:00 2012 17:37:00 DIS Emergency Tyler Rodriguez DO EDW [id number] 02/03/2013 14:54:00 2012 17:20:00 DIS Emergency Gema [facility]AS[facility] [id number] 02/01/2013 22:04:00 2012 02:25:00 DIS [id number] 01/30/2013 02:27:00 2012 09:57:00 DIS [facility] [id number] 10/15/2012 23:23:00 2012 01:40:00 DIS Emergency John BALDERAS, [facility] [id number] 10/14/2012 13:41:00 2012 14:15:00 [facility] [id number] 09/04/2012 11:57:00 2012 12:59:00 DIS [facility] [id number] 08/26/2012 13:24:00 2012 15:00:00 DIS Emergency [facility] [id number] 06/22/2012 14:25:00 2011 14:47:00 DIS [facility] [id number] 06/17/2012 16:30:00 2011 17:54:00 DIS Emergency [facility] [id number] 05/19/2012 01:10:00 2011 03:40:00 DIS Emergency [facility] [id number] 04/12/2012 14:43:00 2011 15:23:00 DIS Emergency [facility] [id number] 11/14/2010 04:30:00 Inpatient
--- NOTE | 2016-11-23 08:58 | NUR ---
ASSESSMENT NURSE SAW THAT PT LOOKED AT ME. NURSE WENT IN TO ASK HOW SHE WAS FEELING. SHE TURNED HER HEAD TO HER RT SIDE & CLOSED HER EYES & WOULD NOT ANSWER NURSE. SHE WOULD NOT FOLLOW REQUESTS. NURSE CALLED OUT NAME & ASKED HER TO OPEN HER EYES. PT MOANED NO & SWATTED HER L HAND. NURSE ATTEMPTED TO GET ORAL TEMP FROM PT. SHE CLAMPED HER LIPS TOGETHER & SHOOK HER HEAD NO.
--- NOTE | 2016-11-23 09:01 | NUR ---
STATUS CALL TO "PERSON TO NOTIFY" AND SPOKE WITH HER. LEFT MESSAGE WITH "MOTHER" WHO HAD CALLED 10 MIN EARLIER ASKING FOR INFORMATION. UNABLE TO VERIFY PERSON INFORMATION AT THAT TIME AND ADVISED TO CALL BACK.
[2016-11-23] MEDS ORDERED: LACT-73 PO (09:05)
[2016-11-23] MEDS ORDERED: NA P133E4 RECTALLY (09:14)
--- NOTE | 2016-11-23 09:16 | NUR ---
TO [facility] PER CART
--- NOTE | 2016-11-23 09:26 | NUR ---
RETURNED FROM [facility]
--- NOTE | 2016-11-23 09:45 | NUR ---
OUTPUT RIVERA EMPTIED OF 1750 CC URINE
--- NOTE | 2016-11-23 09:50 | NUR ---
REPORT TO LARRY AT [facility]
--- NOTE | 2016-11-23 09:54 | NEUROPD ---
Telestroke Consultation Note Patient Information Last Name:Justice First Name:Nany Location: [facility] Arrival Date/Time: Age:41 Weight:54.600 Gender:female Mode of Arrival: Clinical Presentation Vital Signs/Laboratory Laboratory Tests Test 11/23/16 06:20 11/23/16 06:55 11/23/16 07:08 White Blood Count 6.7T/MM3 Red Blood Count 4.89M/MM3 Hemoglobin 13.9GM/DL Hematocrit 42.0% Mean Corpuscular Volume 85.9UM3 Mean Corpuscular Hemoglobin 28.4UUG Mean Corpuscular Hemoglobin Concent 33.1GM/DL RDW Standard Deviation 38.5FL Platelet Count 189T/MM3 Mean Platelet Volume 10.6UM3 Immature Granulocyte % (Auto) 0.1% Neutrophils (%) (Auto) 68.7% Lymphocytes (%) (Auto) 25.3% Monocytes (%) (Auto) 4.9% Eosinophils (%) (Auto) 0.9% Basophils (%) (Auto) 0.1% Absolute Immature Granulocyte (auto 0.01T/MM3 Absolute Neutrophils (auto) 4.6T/MM3 Absolute Lymphocytes (auto) 1.7T/MM3 Absolute Monocytes (auto) 0.3T/MM3 Absolute Eosinophils (auto) 0.1T/MM3 Absolute Basophils (auto) 0.0T/MM3 Prothromb Time International Ratio 1.09 Activated Partial Thromboplast Time 31.9SEC Turbidity < 20 Sodium Level 148MEQ/L Potassium Level 3.1MEQ/L Chloride Level 102MEQ/L Carbon Dioxide Level 29MEQ/L Anion Gap 17MEQ/L Blood Urea Nitrogen 14.0MG/DL Creatinine 0.6MG/DL Glomerular Filtration Rate Calc 110 BUN/Creatinine Ratio 23RATIO Glucose Level 152MG/DL Calculated Osmolality 288MOSM/KG Calcium Level 9.3MG/DL Total Bilirubin 0.60MG/DL Icterus Index < 2 Aspartate Amino Transf (AST/SGOT) 42U/L Alanine Aminotransferase (ALT/SGPT) 32U/L Alkaline Phosphatase 89U/L Troponin I < 0.012ng/ml Total Protein 8.0G/DL Albumin 4.6G/DL Globulin 3.4G/DL Albumin/Globulin Ratio 1.4RATIO Human Chorionic Gonadotropin, Qual Negative Chemistry Specimen Hemolysis < 15 Glucometer 134mg/dL Urine Collection Type Kwan indwelling Urine Color Yellow Urine Turbidity Clear Urine pH 6.5 Urine Specific [place] 1.010 Urine Protein Negative Urine Glucose (UA) Negative Urine Ketones Negative Urine Blood Negative Urine Nitrite Negative Urine Bilirubin Negative Urine Urobilinogen 0.2EU/DL Urine Leukocyte Esterase 1+ Urine RBC None seen/HPF Urine WBC 1-3/HPF Urine Bacteria None seen Urine Yeast Trace Urine Culture Indicated Cult not indicated Urine Opiates Screen NegativeNG/ML Urine Oxycodone Screen PositiveNG/ML Urine Methadone Screen NegativeNG/ML Urine Propoxyphene Screen NegativeNG/ML Urine Barbiturates Screen PositiveNG/ML Urine Tricyclic Antidepressants NegativeNG/ML Urine Phencyclidine Screen NegativeNG/ML Urine Amphetamines Screen NegativeNG/ML Urine Methamphetamines Screen NegativeNG/ML Urine Benzodiazepines Screen PositiveNG/ML Urine Cocaine Screen NegativeNG/ML Urine Cannabinoids Screen NegativeNG/ML Urine Drug Screen Confirmation Sent out Urine Drug Screen Information Pending Vital Signs Date Time Temp Pulse Resp B/P Pulse Ox O2 Delivery O2 Flow Rate FiO2 11/23/16 07:15 86 33 147/99 Room Air 11/23/16 06:55 97.7 Patient History Scheduled Acyclovir (Acyclovir) 400 Mg Tablet, 400 MG PO TID, (Reported) Albuterol Sulfate (Proair HFA 90 mcg/actuation) 8.5 Gm Hfa.aer.ad, 2 PUFF INH DAILY, (Reported) Cephalexin (Cephalexin) 500 Mg Capsule, 500 MG PO TID, (Reported) Diazepam (Diazepam) 10 Mg Tablet, 10 MG PO TID, (Reported) Duloxetine HCl (Cymbalta) 60 Mg Capsule.dr, 60 MG PO DAILY, (Reported) Fentanyl (Fentanyl 100 mcg/hr) 1 Each Patch.td72, 1 PATCH TD Q72H, (Reported) Gabapentin (Gabapentin) 400 Mg Capsule, 400 MG PO TID, (Reported) Lactose-Free Food (Ensure Plus) 237 Ml Liquid, 237 ML PO TID, (Reported) Lactulose (Lactulose) 10 Gm/15 Ml Solution, 20 ML PO DAILY, (Reported) Levothyroxine Sodium (Levothyroxine Sodium) 75 Mcg Tablet, 75 MCG PO ACB, ( Reported) Sennosides (Senna) 8.6 Mg Tablet, 17.2 MG PO BID, (Reported) Scheduled PRN Acetaminophen (Acetaminophen) 500 Mg Tablet, 1,000 MG PO Q6H PRN for PAIN, ( Reported) Butalb/Acetaminophen/Caffeine (Urbhew-Erpyufsm-Jqwn 50-300-40) 1 Each Capsule, 1 CAP PO QID PRN for MIGRAINE HEADACHE, (Reported) Na Phos,M-B/Na Phos,Di-Ba (Enema) 133 Ml Enema, 1 ENEMA RECTALLY DAILY PRN for CONSTIPATION, (Reported) Oxycodone HCl (Oxycodone HCl) 10 Mg Tablet, 10 MG PO Q6HPRN PRN for PAIN, ( Reported) Promethazine HCl (Promethazine HCl) 25 Mg Tablet, 25 MG PO Q4H PRN for NAUSEA &/ OR VOMITING, (Reported) Allergies: Coded Allergies: No Known Allergies (Unverified , 11/23/16) Housing: longterm HPI Consult Start Time: 06:57 History Reviewed: Yes History of Present Illness 41yo F with a h/o anorexia and Crohn's disease who lives in a longterm presents with decreased responsiveness. Patient uses a Duragesic patch and also takes oxycodone. She received her last dose of oxycodone at 1am, and was last seen normal at that time. At 5am, patient was found to be unresponsive and EMS was called. On arrival to ED, patient was apparently not moving at all , completely unresponsive. Narcan was administered and patient is now slightly improved. ROS Neurological: see HPI Neuro Scores-NIHSS Level of Consciousness: 0 Level of Consciousness: 2 Level of Consciousness: 2 Visual: 0 Facial Palsy: 0 Motor Arm Left: 3 Motor Arm Right: 3 Motor Leg Left: 3 Motor Leg Right: 3 Limb Ataxia: 0 Sensory: 2 Best Language: 3 Extinction and Inattention: 2 t-PA Imaging Reviewed: Yes Time Imaging Reviewed: 07:55 Imaging Findings No acute changes t-PA Recommended?: No Reason for not recommending Not stroke Recommendation Impression: (1) Altered mental status, unspecified Recommendation 41yo F found to be unresponsive, now slightly improved after Narcan. Neurological exam is notable for patient being unable to answer questions or follow commands, with spontaneous movements in all four extremities, but with no response to deep pain in all four extremities. I suspect patient's altered mental status is related to a toxic encephalopathy but differential diagnosis also includes ischemic stroke. I recommend workup to include MRI brain with and without gadolinium and EEG. Further workup is pending the results of these tests. LEVI CARDENAS MD Nov 23, 2016 09:52
--- NOTE | 2016-11-23 10:00 | NUR ---
STATUS OVER LAST HR. PT HAS REMAINED QUIET WITH NO LEG ACTIVITY EARLIER
[2016-11-23 10:18] VITALS: BP 114/83; PULSE 83; RESP 24; TEMP 97; O2SAT 98
--- NOTE | 2016-11-23 10:18 | NUR ---
TRANSFER PER EMS TO [place] [facility]. CARE ASSUMED BY [facility]. PT WILL NOT RESPOND TO STAFF.
--- NOTE | 2016-11-23 20:47 | DI ---
Indication: ITS.REASON: unresponsive PROCEDURE: CHEST 1 VIEW: Encounter: Initial Comparison: None FINDINGS: The lungs are clear. There is no abnormal airspace opacity, pleural effusion or pneumothorax identified. The heart size, pulmonary vasculature and mediastinum are within normal limits. No significant skeletal abnormality is seen. IMPRESSION: No acute cardiopulmonary abnormality. .
--- NOTE | 2016-11-23 20:51 | DI ---
Indication: ITS.REASON: mental status change PROCEDURE: CT HEAD W/O CONTRAST: Encounter: Initial Comparison: None Technique: Axial CT images through the head were performed without contrast. Iterative Reconstruction dose reducing technique was utilized. FINDINGS: The ventricles are of normal size, shape, and configuration for the patient's age. There is no evidence of acute intracranial hemorrhage, midline displacement, or mass effect. The CT attenuation of the brain parenchyma is normal within the cerebellum, brain stem, and cerebral hemispheres. The tympanic cavities and mastoid air cells are free of appreciable disease. There are no definite fractures of the skull base, calvarium, or visualized portion of the midface. IMPRESSION: No CT evidence of acute intracranial abnormality. There is a preliminary report by [facility]. .
== END 2016-11-23 10:18 | disposition short-term general hospital (02) ==
LOC: ED 06:41
DX: R41.82 Altered mental status, unspecified (principal)
CPT/HCPCS: 36415; 80053; 80306; 81001; 82948; 84484; 84703; 85025; 85610; 85730; 93005